=== PATIENT | female | born 1985 | race Caucasian/White ===

== ENCOUNTER 2019-08-07 06:57 | Day surgery (SDC) | payer BC, MEDICAID, SELFPAY ==
[2019-08-06 10:27] VITALS: BMI 53.2
[2019-08-07 07:18] VITALS: BP 159/83; PULSE 102; RESP 18; TEMP 36.4; O2SAT 96
[2019-08-07] MEDS: sodium chloride 0.9% 1,000 ML 30 ML (07:24)
[2019-08-07 07:26] LABS: Glucose Point of Care 165 mg/dL (70-110)
--- NOTE | 2019-08-07 07:53 | PM.HPUD ---
H&P update H&P Update: DATE OF SURGERY/PROCEDURE: 08/07/19 DATE H&P PERFORMED: 07/25/19 H&P UPDATE INFORMATION: H&P completed within last 30 days and No changes to prior documentation PREOP DIAGNOSIS: GERD associated with morbid obesity PRIMARY INDICATION FOR PROCEDURE: The same PLANNED PROCEDURE: Operation Date: 08/07/19 08:30 Proposed Procedures p EGD(Not Applicable) - Bryce Aranda MD Full H&P Perinent History: Medical/Surgical History: Medical History (Updated 07/28/19 @ 08:42 by Bryce Aranda MD) BMI 50.0-59.9, adult (Acute) Depression (Acute) History of drainage of abscess (Acute 2013) 2013 Left axillary region. Excision of sinus tract due to recurrent abscess formation. 2010 Left axillary region. Excision of sinus tract due to recurrent abscess formation. Hypertension (Acute) PCOS (polycystic ovarian syndrome) (Acute) SVT (supraventricular tachycardia) (Acute) Family History: Family History (Updated 07/25/19 @ 13:52 by Paz Fernandez RN) Mother Hypertension Meniere's disease Father Hypertension Hypercholesterolemia Grandfather Cancer Paternal; Lung Grandmother Cancer Maternal; Bone Hypercholesterolemia Maternal Meniere's disease Maternal Family/Other Meniere's disease Maternal Great Grandfather Denies family history of Anesthesia complication Bleeding disorder Social History: Social History Smoking and tobacco status: never smoked Second hand smoke exposure: No Alcohol intake: never Adopted: No Caregiver/support person: Yes Lives independently: Yes Household members: spouse Housing: House Marital status: Highest education level completed: High School Graduate service: No Current occupational status: employed 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
--- NOTE | 2019-08-07 08:26 | ANES.PREANE2 ---
Pre-Anesthetic Assessment Pre-Anesthetic Assessment: Height/Weight: Height 1.57 m Weight 131.995 kg Temp Pulse Resp BP Pulse Ox 97.5 F L 102 H 18 159/83 96 08/07/19 07:18 08/07/19 07:18 08/07/19 07:18 08/07/19 07:18 08/07/19 07:18 Preop Diagnosis: GERD associated with morbid obesity Proposed Procedure: Operation Date: 08/07/19 08:30 Proposed Procedures p EGD(Not Applicable) - Bryce Aranda MD Familial anesthetic complications: PONV Was Beta Carlyle taken within 24 hours: N/A Last intake: Intake Last Liquid Date 08/06/19 Last Liquid Time 21:30 Last Solid Date 08/06/19 Last Solid Time 21:30 Social: Social History: No alcohol and No tobacco Exam: Pre-Anes Outpt Exam: alert, oriented x 3 and clear to auscultation bilaterally Airway: Submandibular: Other (short TMD small mouth opening ) Cervical ROM: WNL MP: 2 Pulmonary: Pulmonary: Asthma (childhood, finished [place] for bronchitis last week) CV/HEM: CV/HEM: Arrythmia (tachycardia) and HTN : : None reported Hepatic: Hepatic: None reported GI: GI: GERD (controlled diet) Metabolic: Metabolic: Morbid obesity Musc/skel: Musc/skel: None reported Neuropsych: Neuropsych: Anxiety and Depression Anesthetic Plan: ASA status: 3 Anesthesia: Anesthesia Evaluation and MAC Risk of > 500 ml blood loss (7ml/kg in children): No PFSH Anesthesia PFSH: Social History Smoking and tobacco status: never smoked Second hand smoke exposure: No Alcohol intake: never Adopted: No Caregiver/support person: Yes Lives independently: Yes Household members: spouse Housing: House Marital status: Highest education level completed: High School Graduate service: No Current occupational status: employed 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
[2019-08-07 08:43] VITALS: PULSE 82; RESP 16; O2SAT 97
[2019-08-07] MEDS: ipratropium 0.5 mg/2.5 mL Neb INHALATION (08:43)
[2019-08-07 08:47] VITALS: PULSE 91
[2019-08-07 09:06] VITALS: BP 127/72; PULSE 85; RESP 16; TEMP 36.5; O2SAT 100
[2019-08-08 13:15] LABS: H. Pylori / CLO Test Positive
== END 2019-08-07 09:30 | disposition home or self-care (01) ==
PROVIDERS: Family Provider Nurse Practitioner; PCP Nurse Practitioner; Visit Provider Surgery
PROC: 0DJ08ZZ Inspection of Upper Intestinal Tract, Via Natural or Artificial Opening Endoscopic (ICD-10-PCS; CPT 43235; principal; 2019-08-07 08:30)
DX: K21.9 Gastro-esophageal reflux disease without esophagitis (principal); K29.70 Gastritis, unspecified, without bleeding; E66.01 Morbid (severe) obesity due to excess calories; Z68.43 Body mass index [BMI] 50.0-59.9, adult; E28.2 Polycystic ovarian syndrome; Z82.49 Family history of ischemic heart disease and other diseases of the circulatory system; Z83.3 Family history of diabetes mellitus; I10 Essential (primary) hypertension
CPT/HCPCS: 12345; 36416; 43239; 82962; 87077; 94640; J2704; J7030; J7611; J7644

== ENCOUNTER → 2019-08-16 10:41 | Outpatient (BNVA) | payer BC, SELFPAY | PROVIDERS: Family Provider Nurse Practitioner; PCP Nurse Practitioner; Visit Provider Nurse Practitioner | DX: F41.1 Generalized anxiety disorder (principal); G47.30 Sleep apnea, unspecified | CPT/HCPCS: 99213 ==

== ENCOUNTER → 2019-09-13 14:20 | Outpatient (BNVA) | payer BC, SELFPAY | PROVIDERS: Family Provider Nurse Practitioner; PCP Nurse Practitioner; Visit Provider Nurse Practitioner | DX: G47.30 Sleep apnea, unspecified (principal); F41.1 Generalized anxiety disorder | CPT/HCPCS: 99214 ==

== ENCOUNTER → 2019-10-15 08:41 | Outpatient (BNVA) | payer MEDICAID, SELFPAY | PROVIDERS: Family Provider Nurse Practitioner; PCP Nurse Practitioner; Visit Provider Counselor Professional | DX: F41.1 Generalized anxiety disorder (principal) | CPT/HCPCS: 90834 ==

== ENCOUNTER → 2019-10-23 08:32 | Outpatient (BNVA) | payer MEDICAID, SELFPAY | PROVIDERS: Family Provider Nurse Practitioner; PCP Nurse Practitioner; Visit Provider Counselor Professional | DX: F41.1 Generalized anxiety disorder (principal) | CPT/HCPCS: 90834 ==

== ENCOUNTER → 2019-11-01 07:47 | Outpatient (BNVA) | payer MEDICAID, SELFPAY | PROVIDERS: Family Provider Nurse Practitioner; PCP Nurse Practitioner; Visit Provider Counselor Professional | DX: F41.1 Generalized anxiety disorder (principal) | CPT/HCPCS: 90834 ==

== ENCOUNTER → 2019-11-12 08:47 | Outpatient (BNVA) | payer MEDICAID, SELFPAY | PROVIDERS: Family Provider Nurse Practitioner; Visit Provider Counselor Professional | DX: F41.1 Generalized anxiety disorder (principal) | CPT/HCPCS: 90834 ==

== ENCOUNTER → 2019-11-13 07:43 | Outpatient (BNVA) | payer MEDICAID, SELFPAY | PROVIDERS: Family Provider Nurse Practitioner; Visit Provider Nurse Practitioner | DX: F41.1 Generalized anxiety disorder (principal) | CPT/HCPCS: 99213 ==

== ENCOUNTER → 2019-11-19 15:30 | Outpatient (BNVA) | payer MEDICAID, SELFPAY | PROVIDERS: Family Provider Nurse Practitioner; Visit Provider Nurse Practitioner | DX: R06.02 Shortness of breath (principal) | CPT/HCPCS: 71046; 87400; 87635 ==

== ENCOUNTER → 2019-11-20 08:18 | Outpatient (BNVA) | payer MEDICAID, SELFPAY | PROVIDERS: Family Provider Nurse Practitioner; Visit Provider Counselor Professional | DX: F41.1 Generalized anxiety disorder (principal); R07.1 Chest pain on breathing; R68.89 Other general symptoms and signs; R50.9 Fever, unspecified; R06.02 Shortness of breath | CPT/HCPCS: 90834; 71046 ==

== ENCOUNTER → 2019-12-04 08:28 | Outpatient (BNVA) | payer MEDICAID, SELFPAY | PROVIDERS: Family Provider Nurse Practitioner; Visit Provider Counselor Professional | DX: F41.1 Generalized anxiety disorder (principal) | CPT/HCPCS: 90834 ==

== ENCOUNTER → 2019-12-12 08:18 | Outpatient (BNVA) | payer MEDICAID, SELFPAY | PROVIDERS: Family Provider Nurse Practitioner; Visit Provider Counselor Professional | DX: F41.1 Generalized anxiety disorder (principal) | CPT/HCPCS: 90834 ==

== ENCOUNTER → 2019-12-19 08:24 | Outpatient (BNVA) | payer MEDICAID, SELFPAY | PROVIDERS: Family Provider Nurse Practitioner; Visit Provider Counselor Professional | DX: F41.1 Generalized anxiety disorder (principal) | CPT/HCPCS: 90832 ==

== ENCOUNTER → 2019-12-26 08:37 | Outpatient (BNVA) | payer MEDICAID, SELFPAY | PROVIDERS: Family Provider Nurse Practitioner; Visit Provider Counselor Professional | DX: F41.1 Generalized anxiety disorder (principal) | CPT/HCPCS: 90834 ==

== ENCOUNTER → 2020-01-09 08:17 | Outpatient (BNVA) | payer MEDICAID, SELFPAY | PROVIDERS: Family Provider Nurse Practitioner; Visit Provider Counselor Professional | DX: F41.1 Generalized anxiety disorder (principal) | CPT/HCPCS: 90834 ==

== ENCOUNTER → 2020-01-23 08:17 | Outpatient (BNVA) | payer MEDICAID, SELFPAY | PROVIDERS: Family Provider Nurse Practitioner; Visit Provider Counselor Professional | DX: F41.1 Generalized anxiety disorder (principal) | CPT/HCPCS: 90834 ==

== ENCOUNTER → 2020-01-31 11:00 | Outpatient (BNVA) | payer MEDICAID, SELFPAY | PROVIDERS: Family Provider Nurse Practitioner; Visit Provider Nurse Practitioner Family | DX: J98.8 Other specified respiratory disorders (principal); R43.2 Parageusia | CPT/HCPCS: 87635 ==

== ENCOUNTER → 2020-02-06 09:00 | Outpatient (BNVA) | payer MEDICAID, SELFPAY | PROVIDERS: Family Provider Nurse Practitioner; Visit Provider Counselor Professional | DX: F41.1 Generalized anxiety disorder (principal) | CPT/HCPCS: 90834 ==

== ENCOUNTER → 2020-02-18 11:33 | Outpatient (BNVA) | payer MEDICAID, SELFPAY | PROVIDERS: Family Provider Nurse Practitioner; Visit Provider Nurse Practitioner | DX: R30.0 Dysuria (principal); I10 Essential (primary) hypertension | CPT/HCPCS: 81000 ==

== ENCOUNTER → 2020-02-20 16:02 | Outpatient (BNVA) | payer MEDICAID, SELFPAY | PROVIDERS: Family Provider Nurse Practitioner; PCP Nurse Practitioner; Visit Provider Nurse Practitioner Family | DX: I10 Essential (primary) hypertension (principal); R07.9 Chest pain, unspecified | CPT/HCPCS: 80048 ==

== ENCOUNTER → 2020-03-03 10:45 | Outpatient (BNVA) | payer MEDICAID, SELFPAY | PROVIDERS: Family Provider Nurse Practitioner; PCP Nurse Practitioner; Visit Provider Counselor Professional | DX: F41.1 Generalized anxiety disorder (principal) | CPT/HCPCS: 90834; 83036 ==

== ENCOUNTER → 2020-03-13 07:57 | Outpatient (BNVA) | payer MEDICAID, SELFPAY | PROVIDERS: Family Provider Nurse Practitioner; PCP Nurse Practitioner; Visit Provider Counselor Professional | DX: F41.1 Generalized anxiety disorder (principal) | CPT/HCPCS: 90834 ==

== ENCOUNTER 2020-03-20 06:58 | Outpatient (CLI) | payer MEDICAID, SELFPAY ==
--- NOTE | 2020-03-20 07:15 | US_ITS ---
WS: [id number] Abdomen ultrasound, 03/20/2020 Clinical Data: resistant hypertension, possible renal artery stenosis Comparison: Abdomen ultrasound, 01/28/2017. Findings: The pancreas shows no cyst, pseudocyst or evidence of pancreatitis. The liver shows fatty infiltration with enlargement, measuring 17.63 cm. The gallbladder is absent.. The common bile duct is 0.4 cm and no intraductal abnormalities are noted . The right kidney is 12.4 cm. No cysts, masses or hydronephrosis is seen. The left kidney is 12.5 cm. No cysts, masses or hydronephrosis is seen. The abdominal aorta is not dilated and the inferior vena cava has normal flow. No vascular abnormalit ies are seen. The spleen measures 15.0 cm and there are no intrasplenic masses or capsular abnormalities. US/US abdomen complete* [id number] Impression: 1. Absent gallbladder. 2. Hepatomegaly with fatty infiltration. 3. Splenomegaly.
== END 2020-03-20 06:59 | disposition home or self-care (01) ==
LOC: US 07:00
PROVIDERS: PCP Nurse Practitioner; Visit Provider Nurse Practitioner Family
DX: I10 Essential (primary) hypertension (principal); Z90.49 Acquired absence of other specified parts of digestive tract; R16.0 Hepatomegaly, not elsewhere classified; K76.0 Fatty (change of) liver, not elsewhere classified; R16.1 Splenomegaly, not elsewhere classified
CPT/HCPCS: 76700

== ENCOUNTER → 2020-03-25 08:20 | Outpatient (BNVA) | payer MEDICAID, SELFPAY | PROVIDERS: Family Provider Nurse Practitioner; PCP Nurse Practitioner; Visit Provider Counselor Professional | DX: F41.1 Generalized anxiety disorder (principal) | CPT/HCPCS: 90834 ==

== ENCOUNTER → 2020-03-26 11:26 | Outpatient (BNVA) | payer MEDICAID, SELFPAY | PROVIDERS: Family Provider Nurse Practitioner; PCP Nurse Practitioner; Visit Provider Nurse Practitioner Family | DX: Z11.59 Encounter for screening for other viral diseases (principal); J06.9 Acute upper respiratory infection, unspecified; Z20.828 Contact with and (suspected) exposure to other viral communicable diseases | CPT/HCPCS: 87635 ==

== ENCOUNTER → 2020-04-08 08:59 | Outpatient (BNVA) | payer MEDICAID, SELFPAY | PROVIDERS: Family Provider Nurse Practitioner; PCP Nurse Practitioner; Visit Provider Counselor Professional | DX: F41.1 Generalized anxiety disorder (principal) | CPT/HCPCS: 90834; 80053; 80061; 81000 ==

== ENCOUNTER → 2020-05-06 08:32 | Outpatient (BNVA) | payer MEDICAID, SELFPAY | PROVIDERS: Family Provider Nurse Practitioner; Visit Provider Counselor Professional | DX: F41.1 Generalized anxiety disorder (principal) | CPT/HCPCS: 90834 ==

== ENCOUNTER 2020-05-22 03:19 | Emergency (ER) | payer MEDICAID, SELFPAY ==
[2020-05-22 03:22] VITALS: BP 134/75; PULSE 118; RESP 17; TEMP 36.7; O2SAT 96; BMI 53.0
--- NOTE | 2020-05-22 03:34 | ED_ITS ---
HPI - Allergic Reaction General: Chief complaint: Allergic Reaction Stated complaint: Allergic reaction Time Seen by Provider: 05/22/20 03:20 Source: patient Mode of arrival: ambulatory Limitations: no limitations History of Present Illness: HPI narrative: 34-year-old female states she had a rash this morning on her stomach. She states that is since spread to her legs and arms. States it seems to move has hive-like. She states it is very pruritic. She denies any shortness of breath or swelling of her tongue. She denies any worsening or improving factors. Associated symptoms: Deny abdominal pain, nausea or vomiting Review of Systems Const: Denies: fever(s), chills, body aches or change in appetite Eyes: Denies: blurry vision or eye discomfort ENMT: Denies: throat pain or dental pain Card: Denies: chest pain Resp: Denies: dyspnea GI: Denies: abdominal pain, nausea, vomiting or diarrhea : Denies: dysuria Musc: Denies: neck pain or back pain Skin/Breast: Reports: rash Neuro: Denies: headache(s) Psych: Denies: depression Jeffrey/Lymph: Denies: easy bruising All/Imm: Denies: urticaria PFSH ED PFSH: Medical History (Updated 05/22/20 @ 04:01 by Laura Tavares MD) BMI 50.0-59.9, adult Chronic migraine with aura Depression Generalized anxiety disorder PCOS (polycystic ovarian syndrome) Sleep apnea, unspecified SVT (supraventricular tachycardia) Surgical History History of appendectomy (07/04/18) History of bladder surgery (1996) 1996 and 1994; Possibly just urethral History of cholecystectomy (01/29/17) History of drainage of abscess (2013) 2013 Left axillary region. Excision of sinus tract due to recurrent abscess formation. 2010 Left axillary region. Excision of sinus tract due to recurrent abscess formation. History of hysterectomy (~2017) Attributes: Left. Comments: ovary gone History of tonsillectomy and adenoidectomy (1993) Status post placement of implantable loop recorder Family History Mother Hypertension Meniere's disease Father Hypertension Hypercholesterolemia Grandfather Cancer Paternal; Lung Grandmother Cancer Maternal; Bone Hypercholesterolemia Maternal Meniere's disease Maternal Family/Other Meniere's disease Maternal Great Grandfather Denies family history of Anesthesia complication Bleeding disorder Social History Smoking and tobacco status: never smoked Second hand smoke exposure: No Alcohol intake: never Adopted: No Caregiver/support person: Yes Lives independently: Yes Household members: spouse Housing: House Marital status: Highest education level completed: High School Graduate service: No Current occupational status: employed 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 Current occupational exposures/hazards: No Pets and animals: No History of recent travel: No Sexually active: Yes Current gender identity: Female Sunni/Congregational: Sikh Special sunni needs: No Agree to transfusion: No Financial difficulty paying for basics: Decline to Answer Physical Exam Const: COMMON NORMALS: no acute distress, patient oriented x3 and healthy appearing HENMT: COMMON NORMALS: normocephalic and atraumatic HEAD & SCALP: normocephalic and atraumatic Eye: COMMON NORMALS: Equal, round and reactive pupils present and EOMs intact bilaterally PUPIL: Yes Equal, round and reactive pupils present Neck/C-Spine: COMMON NORMALS: full ROM and supple Chest: COMMONS NORMALS: normal inspection of the chest and normal palpation of entire chest wall Resp: COMMON NORMALS: normal respiratory effort, No retractions, No use of accessory muscles and clear to auscultation bilaterally AUSCULTATION: clear to auscultation bilaterally Cardio: COMMON NORMALS: regular rate, regular rhythm and No murmurs present (Cardio) RATE: regular rate RHYTHM: regular rhythm GI: COMMON NORMALS: Normal to inspection, nondistended, normoactive bowel sounds present, Soft to palpation, non-tender and no masses PALPATION: Yes Soft to palpation Extremity: COMMON NORMALS: normal to inspection and full ROM Neuro: COMMON NORMALS: patient oriented x3, moves all extremities and no focal motor deficits Psych: COMMON NORMALS: mental status grossly normal, Normal thought process present and cooperative THOUGHT PROCESS: Normal thought process present Skin: COMMON NORMALS: no wounds NARRATIVE SKIN EXAM: hives to trunk, legs and arms Course Vital Signs: Vital signs: Vital Signs Temperature 98.1 F 05/22/20 03:22 Pulse Rate 118 H 05/22/20 03:22 Respiratory Rate 16 05/22/20 03:50 Blood Pressure 126/85 05/22/20 03:50 Pulse Oximetry 97 05/22/20 03:50 MDM - Allergic Reaction MDM Narrative: Medical decision making narrative: Corrine presents here with urticaria likely allergic reaction. Patient is stable for discharge and will prescribe Medrol Dosepak. Patient has no signs of anaphylaxis. Patient is to return if worsening. Discharge Plan Discharge Patient Disposition: Home Clinical Impression: Urticaria Condition: Stable Prescriptions: New Medrol (Buddy) 4 mg tablets,dose pack See Rx Instructions .ROUTE .COMPLEX Qty: 21 RF: 0 No Action albuterol sulfate 2.5 mg /3 mL (0.083 %) solution for nebulization 2.5 mg INHALATION QID RF: 0 multivitamin [Multiple Vitamins] Tablet 1 tab PO DAILY RF: 0 ascorbic acid (vitamin C) 1,000 mg tablet 1,000 mg PO DAILY RF: 0 cholecalciferol (vitamin D3) 2,000 unit tablet 2,000 unit PO DAILY RF: 0 metaxalone 400 mg tablet 400 mg PO BID PRN (Reason: Migraine Headache) RF: 0 ferrous sulfate 325 mg (65 mg iron) tablet,delayed release (DR/EC) 325 mg PO BID RF: 0 Corlanor 7.5 mg tablet 7.5 mg PO BID RF: 0 promethazine 25 mg tablet 25 mg PO Q8H PRN (Reason: Nausea) Qty: 30 RF: 2 diphenhydramine HCl [Benadryl] 25 mg capsule 50 mg PO ONCE Qty: 2 RF: 0 promethazine-DM 6.25-15 mg/5 mL syrup 5 - 10 ml PO Q6H PRN (Reason: cough) 7 Days Qty: 473 RF: 0 metformin 500 mg tablet extended release 24 hr 500 mg PO BID Qty: 60 RF: 2 Byetta 10 mcg/dose(250 mcg/mL) 2.4 mL pen injector 10 mcg SUBCUT BID Qty: 2.4 RF: 2 clonidine HCl 0.1 mg tablet 0.1 mg PO BID PRN (Reason: hypertensive emergency) Qty: 60 RF: 2 doxepin 10 mg capsule 10 mg PO .at bedtime Qty: 30 RF: 2 (DME) FreeStyle Sherry 14 Day Sensor Kit See Rx Instructions .ROUTE .MEDSUPPLY Qty: 1 RF: 5 (DME) FreeStyle Sherry 14 Day Nancy Misc See Rx Instructions .ROUTE .MEDSUPPLY Qty: 1 RF: 0 fluconazole [Diflucan] 150 mg tablet 150 mg PO DAILY Qty: 1 RF: 0 (DME) pen needle, diabetic 33 gauge x 5/32 needle See Rx Instructions .ROUTE .MEDSUPPLY Qty: 100 RF: 0 valsartan-hydrochlorothiazide 160-25 mg tablet 1 tab PO DAILY Qty: 180 RF: 0 clonazepam 1 mg tablet 1 mg PO BID PRN (Reason: anxiety) Qty: 60 RF: 1 venlafaxine [Effexor XR] 150 mg capsule,extended release 24hr 150 mg PO BEDTIME Qty: 30 RF: 2 venlafaxine [Effexor XR] 75 mg capsule,extended release 24hr 75 mg PO BEDTIME Qty: 30 RF: 2 Lactobacillus acidophilus Capsule 10 mg PO DAILY RF: 0 Protonix 40 mg tablet,delayed release (DR/EC) 40 mg PO DAILY Qty: 30 RF: 2 Discharge Orders: Discharge Order (Routine); Ordered 05/22/20 Ordered By: Laura Tavares Discharge Diet: Advance as tolerated Discharge Activity: Resume usual activity Patient Instructions: Urticaria (ED) Coding Level of Care Code ED Senior Research Project Manager for Nicolas Fwd Exam Comprehensive
[2020-05-22 03:50] VITALS: BP 126/85; RESP 16; O2SAT 97
[2020-05-22] MEDS: diphenhydrAMINE 50 mg/mL SDV 1mL IVP (03:58)
[2020-05-22] MEDS: EPINEPHrine 1 mg/mL INJ 0.3 MG IM (04:33)
[2020-05-22] MEDS: LORazepam 2 mg/mL INJ 1 mL 1 MG IVP (05:18)
[2020-05-22 05:28] VITALS: BP 121/65; PULSE 91; RESP 17; TEMP 36.6; O2SAT 97
== END 2020-05-22 05:28 | disposition home or self-care (01) ==
PROVIDERS: Emergency Provider Emergency Medicine; PCP Family Medicine
DX: L50.9 Urticaria, unspecified (principal)
CPT/HCPCS: 12345; 96372; 96374; 96375; 99283; J0171; J1200; J2060; J2930

== ENCOUNTER → 2020-05-27 08:38 | Outpatient (BNVA) | payer MEDICAID, SELFPAY | PROVIDERS: Family Provider Nurse Practitioner; Visit Provider Counselor Professional | DX: F41.1 Generalized anxiety disorder (principal) | CPT/HCPCS: 90834 ==

== ENCOUNTER → 2020-06-16 08:09 | Outpatient (BNVA) | payer MEDICAID, SELFPAY | PROVIDERS: Family Provider Nurse Practitioner; Visit Provider Counselor Professional | DX: F41.1 Generalized anxiety disorder (principal) | CPT/HCPCS: 90834 ==

== ENCOUNTER → 2020-07-08 09:28 | Outpatient (BNVA) | payer MEDICAID, SELFPAY | PROVIDERS: Family Provider Nurse Practitioner; Visit Provider Counselor Professional | DX: F41.1 Generalized anxiety disorder (principal) | CPT/HCPCS: 90834 ==

== ENCOUNTER → 2020-07-13 09:18 | Outpatient (BNVA) | payer MEDICAID, SELFPAY | PROVIDERS: Family Provider Nurse Practitioner; Visit Provider Nurse Practitioner | DX: F41.1 Generalized anxiety disorder (principal) | CPT/HCPCS: 99214 ==

== ENCOUNTER → 2020-07-30 09:22 | Outpatient (BNVA) | payer MEDICAID, SELFPAY | PROVIDERS: Family Provider Nurse Practitioner; Visit Provider Counselor Professional | DX: F41.1 Generalized anxiety disorder (principal) | CPT/HCPCS: 90834 ==

== ENCOUNTER → 2020-08-11 07:54 | Outpatient (BNVA) | payer MEDICAID, SELFPAY | PROVIDERS: Family Provider Nurse Practitioner; PCP Nurse Practitioner; Visit Provider Nurse Practitioner | DX: F41.1 Generalized anxiety disorder (principal); F41.0 Panic disorder [episodic paroxysmal anxiety] | CPT/HCPCS: 99214 ==

== ENCOUNTER → 2020-08-15 10:45 | Outpatient (BNVA) | payer MEDICAID, SELFPAY | PROVIDERS: Family Provider Nurse Practitioner; PCP Nurse Practitioner; Visit Provider Nurse Practitioner Family | DX: Z20.822 Contact with and (suspected) exposure to COVID-19 (principal) | CPT/HCPCS: 87635 ==

== ENCOUNTER 2020-08-18 13:55 | Emergency (ER) | payer MEDICAID, SELFPAY ==
[2020-08-18 14:06] VITALS: BP 139/85; PULSE 110; RESP 34; TEMP 36.4; O2SAT 97; BMI 49.5
[2020-08-18 14:24] VITALS: BP 139/85; PULSE 98; RESP 24; TEMP 36.4; O2SAT 97
--- NOTE | 2020-08-18 14:30 | ECG_ITS ---
[facility] Test Date: 2020-08-18 Pat Name: Alma Abdullahi Department: Room: Gender: Female Shuttle Hand: : 1985 Requested By: Terri Lopez Order Number: [id number] Abril MD: Juanpablo Melgar M.D. Measurements Intervals Potter Rate: 97 P: 34 NC: 144 QRS: 5 QRSD: 119 T: 34 QT: 359 QTc: 457 Interpretive Statements SINUS RHYTHM INCOMPLETE RIGHT BUNDLE BRANCH BLOCK [90+ ms QRS DURATION, TERMINAL R IN V1/V2, 40+ ms S IN I/aVL/V4/V5/V6] POSSIBLE ANTERIOR MYOCARDIAL INFARCTION , OF INDETERMINATE AGE [30 ms Q WAVE IN V3/V4, OR R < 0.2 mV IN V4] Compared to ECG 11/05/2018 20:48:11 No significant changes Electronically Signed On 08-18-2020 17:31:39 FOLDER MACHINE by Juanpablo Melgar M.D. [id number]
--- NOTE | 2020-08-18 14:30 | XR_ITS ---
WS: [id number] Exam: XR chest 1V portable [id number] Date/Time of Exam: 08/18/2020 2:30 PM Reason For Exam: SOB/COVID Comparison 11/19/2019. The lungs are clear. Normal cardiomediastinal structures and bony elements. No pleural effusions. The re may be a cardiac recording device superimposing the left heart. XR/XR chest 1V portable [id number] IMPRESSION: 1. No acute cardiopulmonary finding. No change.
--- NOTE | 2020-08-18 14:32 | ED_ITS ---
HPI - COVID General: Chief Complaint: COVID symptoms Stated Complaint: COVID+/LOW02/IN COVID WR Time Seen by Provider: 08/18/20 14:11 Source: patient Mode of arrival: ambulatory Limitations: no limitations Triage information: Has fever, cough or shortness of breath . Exposure to COVID + person last 14 days History of Present Illness: HPI Narrative: Patient is a 34-year-old female here for evaluation of COVID symptoms. Patient tells me she tested positive for COVID on 08/15. She states her symptoms began on 08/14 with loss of smell/taste. She states since that time she has developed fatigue, nonproductive cough, and shortness of breath. She tells me she has been measuring her O2 levels at home and states with any form of ambulation they will drop into the 80s. Patient's PMH is significant for obesity, HTN, and DM. MD complaint: known COVID positive Prior covid testing: yes, results known Prior testing date: 08/15/20 COVID 19 common symptoms: positive non-productive cough, dyspnea and fatigue; negative fever(s), body aches, headache(s), throat pain, nasal congestion, nausea, vomiting or diarrhea COVID 19 other sytmptoms: negative chest pain Pertinent comorbid conditions: diabetes, hypertension and obesity Treatment prior to arrival: none COVID Results: SARS-CoV-2 RNA (RT-PCR) Detected (NOT DETECTED) A 08/15/20 10:45 08/15/20 Review of Systems Const: Reports: fatigue and other (loss of taste/smell); Denies: fever(s), chills, body aches, change in appetite, change in weight or m alaise Eyes: Denies: change in vision, blurry vision or photophobia ENMT: Denies: throat pain, odynophagia or nasal congestion Card: Reports: dyspnea on exertion; Denies: chest pain, palpitations, irregular heart rhythm, edema, swelling of feet/ankles, lightheadedness, syncope, pre-syncope, orthopnea, leg pain with exertion or acrocyanosis Resp: Reports: dyspnea, non-productive cough and pain on inspiration; Denies: wheezing, change in phlegm color, hemoptysis or chest congestion GI: Denies: abdominal pain, nausea, vomiting or diarrhea Musc: Denies: neck pain or back pain Skin/Breast: Denies: rash Neuro: Denies: headache(s), numbness in extremities, weakness in extremities or sensory changes PFSH ED PFSH: Medical History (Updated 08/18/20 @ 16:09 by RADHA Beck) BMI 50.0-59.9, adult Chronic migraine with aura Depression Generalized anxiety disorder Panic disorder PCOS (polycystic ovarian syndrome) Sleep apnea, unspecified SVT (supraventricular tachycardia) Surgical History History of appendectomy (07/04/18) History of bladder surgery (1996) 1996 and 1994; Possibly just urethral History of cholecystectomy (01/29/17) History of drainage of abscess (2013) 2013 Left axillary region. Excision of sinus tract due to recurrent abscess formation. 2010 Left axillary region. Excision of sinus tract due to recurrent abscess formation. History of hysterectomy (~2017) Attributes: Left. Comments: ovary gone History of tonsillectomy and adenoidectomy (1993) Status post placement of implantable loop recorder Family History Mother Hypertension Meniere's disease Father Hypertension Hypercholesterolemia Grandfather Cancer Paternal; Lung Grandmother Cancer Maternal; Bone Hypercholesterolemia Maternal Meniere's disease Maternal Family/Other Meniere's disease Maternal Great Grandfather Denies family history of Anesthesia complication Bleeding disorder Social History Smoking and tobacco status: never smoked Second hand smoke exposure: No Alcohol intake: never Adopted: No Caregiver/support person: Yes Lives independently: Yes Household members: spouse Housing: House Marital status: Highest education level completed: High School Graduate service: No Current occupational status: employed 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 Current occupational exposures/hazards: No Pets and animals: No History of recent travel: No Sexually active: Yes Current gender identity: Female Sunni/Yazdanism: Religious Special sunni needs: No Agree to transfusion: No Financial difficulty paying for basics: Decline to Answer Physical Exam Const: COMMON NORMALS: patient oriented x3, no limitations and alert GENERAL APPEARANCE: cooperative and in distress (appears mildly short of breath when speaking) NUTRITIONAL APPEARANCE: obese ORIENTATION/CONSCIOUSNESS: Yes awake, Yes oriented to person, Yes oriented to place and Yes oriented to time HENMT: COMMON NORMALS: normocephalic and atraumatic HEAD & SCALP: normocephalic and atraumatic Resp: COMMON NORMALS: normal respiratory effort and clear to auscultation bilaterally EFFORT & INSPECTION: Yes tachypneic AUSCULTATION: clear to auscultation bilaterally Cardio: COMMON NORMALS: regular rate and regular rhythm RATE: regular rate RHYTHM: regular rhythm Neuro: TAMARA COMA SCALE: document GCS findings Tamara coma scale eye opening: Spontaneous Kevin coma scale verbal response: Orientated Tamara coma scale motor response: Obey commands Tamara coma scale total score: 15 COMMON NORMALS: patient oriented x3 SENSORIUM/ORIENTATION: Yes alert, Yes oriented to person, Yes oriented to place and Yes oriented to time Skin: COMMON NORMALS: no rashes or lesions noted GENERAL SKIN EXAM: no rashes or lesions noted Course Vital Signs: Vital signs: Vital Signs Temperature 97.6 F 08/18/20 14:24 Pulse Rate 98 08/18/20 14:24 Respiratory Rate 24 H 08/18/20 14:24 Blood Pressure 139/85 08/18/20 14:24 Pulse Oximetry 98 08/18/20 15:45 MDM - COVID MDM Narrative: Medical decision making narrative: Patient is a 34-year-old here for evaluation of COVID symptoms. Patient was initially tachycardic and tachypneic upon arrival but this resolved during her stay with rest. Patient tells me she was having low O2 sats at home however respiratory came and performed a home O2 eval and patient sats never dropped lower than 96%. Her CXR is normal. She has a normal white count, normal D-dimer, normal troponin, BNP, and procalcitonin. Her lactate was slightly elevated at 3.3. CRP is elevated at 29.6. EKG shows no ischemic changes. At this time she does not warrant inpatient admission. She does not need home O2 based on her evaluation here. Patient does meet criteria for a BAM infusion based on her BMI and diabetes history. We discussed possibly doing dexamethasone however given her history of hypertension and diabetes (normal blood sugar for patient is 300s) I think we will hold off on this. Strict return to ED precautions given. Lab Data: Labs: Lab Results 08/18/20 08/18/20 08/18/20 Range/Units 14:00 14:00 14:00 WBC 7.0 (4.0-10.0) 10^3/ uL RBC 5.58 H (4.1-5.3) 10^6/u L Hgb 14.8 (11.5-15.3) g/dL Hct 45.2 (37.0-47.0) % MCV 81.0 (81-99) fL MCH 26.5 L (28.0-34.0) pg MCHC 32.7 (30.0-36.0) g/dL RDW 13.1 (12.1-15.1) % Plt Count 228 (130-400) 10^3/c mm MPV 9.2 (7.4-10.4) fL Neut % (Auto) 84.0 % Lymph % (Auto) 13.4 % Carson % (Auto) 1.3 % Eos % (Auto) 0.1 % Baso % (Auto) 0.3 % Neut # (Auto) 5.88 (1.8-7.7) 10^3/u L Lymph # (Auto) 0.9 (0.8-4.8) 10^3/u L Carson # (Auto) 0.1 L (0.2-0.9) 10^3/u L Eos # (Auto) 0.0 (0.0-0.8) 10^3/u L Baso # (Auto) 0.0 (0.0-0.1) 10^3/u L Nucleated RBC % (a uto) 0 % Nucleated RBCs # 0.0 /100WBC D-Dimer <= 0.27 (0-0.59) ug/mIFE U Sodium 136 (136-145) mmol/L Potassium 4.0 (3.5-5.1) mmol/L Chloride 98 (98-107) mmol/L Carbon Dioxide 20 L (22-29) mmol/L Anion Gap 22.0 H (5-19) BUN 10 (6-20) mg/dL Creatinine 0.5 (0.5-0.9) mg/dL GFR Calculation 143.0 H (90-130) mL/min Glucose 278 H (65-115) mg/dL Calculated Osmolal ity 291 (285-295) mOsm/k g Lactic Acid (0.5-2.2) mmol/L Calcium 9.3 (8.5-10.5) mg/dL Total Bilirubin 0.2 (0.15-1.2) mg/dL AST 27 (0-32) U/L ALT 27 (0-33) U/L Alkaline Phosphata se 172 H (35-105) IU/L Troponin T Gen 5 n g/L (0-10) ng/L C-Reactive Protein 29.6 H (0.0-4.9) mg/L NT-Pro-B Natriuret Pep 58 (0-125) pg/mL Total Protein 7.6 (6.6-8.7) g/dL Albumin 4.0 (3.5-5.2) g/dL Globulin 3.6 (1.3-4.6) g/dL Procalcitonin 0.04 (0-0.5) ng/mL 08/18/20 08/18/20 Range/Units 14:00 14:00 WBC (4.0-10.0) 10^3/ uL RBC (4.1-5.3) 10^6/u L Hgb (11.5-15.3) g/dL Hct (37.0-47.0) % MCV (81-99) fL MCH (28.0-34.0) pg MCHC (30.0-36.0) g/dL RDW (12.1-15.1) % Plt Count (130-400) 10^3/c mm MPV (7.4-10.4) fL Neut % (Auto) % Lymph % (Auto) % Carson % (Auto) % Eos % (Auto) % Baso % (Auto) % Neut # (Auto) (1.8-7.7) 10^3/u L Lymph # (Auto) (0.8-4.8) 10^3/u L Carson # (Auto) (0.2-0.9) 10^3/u L Eos # (Auto) (0.0-0.8) 10^3/u L Baso # (Auto) (0.0-0.1) 10^3/u L Nucleated RBC % (a uto) % Nucleated RBCs # /100WBC D-Dimer (0-0.59) ug/mIFE U Sodium (136-145) mmol/L Potassium (3.5-5.1) mmol/L Chloride (98-107) mmol/L Carbon Dioxide (22-29) mmol/L Anion Gap (5-19) BUN (6-20) mg/dL Creatinine (0.5-0.9) mg/dL GFR Calculation (90-130) mL/min Glucose (65-115) mg/dL Calculated Osmolal ity (285-295) mOsm/k g Lactic Acid 3.3 H (0.5-2.2) mmol/L Calcium (8.5-10.5) mg/dL Total Bilirubin (0.15-1.2) mg/dL AST (0-32) U/L ALT (0-33) U/L Alkaline Phosphata se (35-105) IU/L Troponin T Gen 5 n g/L 6 (0-10) ng/L C-Reactive Protein (0.0-4.9) mg/L NT-Pro-B Natriuret Pep (0-125) pg/mL Total Protein (6.6-8.7) g/dL Albumin (3.5-5.2) g/dL Globulin (1.3-4.6) g/dL Procalcitonin (0-0.5) ng/mL Imaging Data: CXR: Radiologist's impression: [address] [address] XRay Report Signed Patient: Alma Abdullahi Unit #: [id number] : 1985 Age/Sex: 34 / F ADM Date: 08/18/20 Loc: ER Room/Bed: Attending Dr: Ordering Provider/Ordering MD: Terri Lopez Date of Service: 08/18/20 Procedure(s): XR chest 1V portable [id number] Accession Number(s): [id number] Report Number: [id number] WS: [id number] Exam: XR chest 1V portable [id number] Date/Time of Exam: 08/18/2020 2:30 PM Reason For Exam: SOB/COVID Comparison 11/19/2019. The lungs are clear. Normal cardiomediastinal structures and bony elements. No pleural effusions. There may be a cardiac recording device superimposing the left heart. XR/XR chest 1V portable [id number] IMPRESSION: 1. No acute cardiopulmonary finding. No change. Dictated By: Adolfo Capellan DO Signed By: Adolfo Capellan DO Signed Date/Time: 08/18/201453 DD/ 1452 COVID Results: SARS-CoV-2 RNA (RT-PCR) Detected (NOT DETECTED) A 08/15/20 10:45 08/15/20 Monoclonal Antibody Treatments Inclusion/Exclusion Criteria weight >/= 40 kg and + direct Sars-Cov-2 test less than 7-10 days ago BMI >/= 35 and has diabetes not requiring hospitalization, not requiring oxygen (if not chronically on oxygen) and no increase oxygen requirement (if chronically on oxygen) Patient education patient/family/caregiver received/reviewed fact sheet, Emergency Use Authorization/unapproved drug status discussed with patient/family/caregiver, alternatives to this treatment discussed with patient/family/caregiver, risks and benefits of medication reviewed with patient/family/caregiver, patient/family/caregiver given opportunity for questions, which were answered and patient consents to receiving Monoclonal Antibody Treatment Plan for treatment Meets criteria for Monoclonal Antibody infusion Ordering Monoclonal Antibody infusion for another day Discharge Plan Discharge Patient Disposition: Home Clinical Impression: COVID-19 Condition: Stable Prescriptions: No Action albuterol sulfate 2.5 mg /3 mL (0.083 %) solution for nebulization 2.5 mg INHALATION QID RF: 0 multivitamin [Multiple Vitamins] Tablet 1 tab PO DAILY RF: 0 ascorbic acid (vitamin C) 1,000 mg tablet 1,000 mg PO DAILY RF: 0 cholecalciferol (vitamin D3) 2,000 unit tablet 2,000 unit PO DAILY RF: 0 ferrous sulfate 325 mg (65 mg iron) tablet,delayed release (DR/EC) 325 mg PO BID RF: 0 Corlanor 7.5 mg tablet 7.5 mg PO BID RF: 0 promethazine 25 mg tablet 25 mg PO Q8H PRN (Reason: Nausea) Qty: 30 RF: 2 diphenhydramine HCl [Benadryl] 25 mg capsule 50 mg PO ONCE Qty: 2 RF: 0 venlafaxine [Effexor XR] 150 mg capsule,extended release 24hr 150 mg PO BEDTIME Qty: 30 RF: 2 venlafaxine [Effexor XR] 75 mg capsule,extended release 24hr 75 mg PO BEDTIME Qty: 30 RF: 2 Emgality Pen 120 mg/mL pen injector SUBCUT .montly RF: 0 diazepam [Valium] 5 mg tablet 5 mg PO BID PRN (Reason: anxiety) Qty: 60 RF: 0 (DME) pen needle, diabetic 33 gauge x 5/32 needle See Rx Instructions .ROUTE .MEDSUPPLY Qty: 100 RF: 0 valsartan-hydrochlorothiazide 160-25 mg tablet 1 tab PO DAILY Qty: 180 RF: 0 metformin 500 mg tablet extended release 24 hr 500 mg PO BID Qty: 60 RF: 2 clonidine HCl 0.1 mg tablet 0.1 mg PO BID PRN (Reason: hypertensive emergency) Qty: 60 RF: 2 Victoza 3-Buddy 0.6 mg/0.1 mL (18 mg/3 mL) pen injector 1.8 mg SUBCUT Q24H Qty: 9 RF: 0 doxepin 10 mg capsule 10 mg PO .at bedtime Qty: 30 RF: 2 Discharge Orders: Discharge ED (Routine); Ordered 08/18/20 Ordered By: Terri Lopez Referrals: Rosalba Maldonado, [employer] ADVISOR-C [Primary Care Provider] - Patient Instructions: Opioid Safety Activity Restrictions/Additional Instructions: [facility] is committed to fighting the nationwide opiate epidemic. We are providing ALL patients with information regarding opiate safety. If you received opiate pain medication during your stay or if you received a prescription for opiate pain medication-please review this handout. If not, you may disregard. Thank you. As discussed case management should contact you tomorrow to set you up with your BAM infusion. You need to return to the emergency department immediately for worsening shortness of breath, chest pain, difficulty breathing, or any other concerns you may have. Coding Level of Care Code ED Heel Lining Paster for Nicolas Moreno Exam Detailed
[2020-08-18 15:17] LABS: Basophils % 0.3 %; Eosinophils % 0.1 %; Hematocrit 45.2 % (37.0-47.0); Hemoglobin 14.8 g/dL (11.5-15.3); Lymphocytes # 0.9 10^3/uL (0.8-4.8); Lymphocytes % 13.4 %; Mean Corpuscular HGB Conc 32.7 g/dL (30.0-36.0); Mean Corpuscular Hemoglobin 26.5 pg (28.0-34.0); Mean Platelet Volume 9.2 fL (7.4-10.4); Monocytes # 0.1 10^3/uL (0.2-0.9); Monocytes % 1.3 %; Neutrophils # 5.88 10^3/uL (1.8-7.7); Nucleated Red Blood Cells % 0 %; Platelet Count 228 10^3/cmm (130-400); Red Blood Count 5.58 10^6/uL (4.1-5.3); Red Cell Distribution Width 13.1 % (12.1-15.1)
[2020-08-18 15:28] LABS: D Dimer <= 0.27 ug/mIFEU (0-0.59)
[2020-08-18 15:30] LABS: Lactic Sepsis W/Reflex 3.3 mmol/L (0.5-2.2)
[2020-08-18 15:33] LABS: Troponin T (5th) Once 6 ng/L (0-10)
[2020-08-18 15:40] LABS: NT Pro B Type Natriuretic Pept 58 pg/mL (0-125); Procalcitonin 0.04 ng/mL (0-0.5)
[2020-08-18 15:45] VITALS: O2SAT 96; O2SAT 98
[2020-08-18 15:52] LABS: Alanine Aminotransferase 27 U/L (0-33); Alkaline Phosphatase 172 IU/L (35-105); Aspartate Amino Transferase 27 U/L (0-32); Blood Urea Nitrogen 10 mg/dL (6-20); C Reactive Protein 29.6 mg/L (0.0-4.9); Calcium 9.3 mg/dL (8.5-10.5); Carbon Dioxide 20 mmol/L (22-29); Chloride 98 mmol/L (98-107); Globulin 3.6 g/dL (1.3-4.6); Glucose 278 mg/dL (65-115); Osmolality Calculated 291 mOsm/kg (285-295); Sodium 136 mmol/L (136-145); Total Bilirubin 0.2 mg/dL (0.15-1.2); Total Protein 7.6 g/dL (6.6-8.7)
[2020-08-18 16:51] LABS: Reflex Lactate Order REFLEX LACTIC ORDERD
[2020-08-18 16:58] VITALS: O2SAT 97
[2020-08-18 16:59] VITALS: BP 139/85; PULSE 122; RESP 16; O2SAT 97
--- NOTE | 2020-08-20 14:01 | DCPLANNER ---
workday manager had message to schedule an outpatient BAM infusion for patient. workday manager called patients insurance to get a prior authorization for the infusion. workday manager spoke with patients insurance company, spoke with Darshana, was told that a prior authorization was not needed for this infusion. Reference number is [id number]. workday manager faxed order to centralized scheduling. workday manager also faxed positive COVID results to centralized scheduling.
== END 2020-08-18 17:00 | disposition home or self-care (01) ==
PROVIDERS: Emergency Provider Physician Assistant; PCP Nurse Practitioner
DX: U07.1 COVID-19 (principal)
CPT/HCPCS: 71045; 80053; 83605; 83880; 84145; 84484; 85025; 85378; 86140; 93005; 94760; 96365; 96366; 96367; 99284; 99291; 99292

== ENCOUNTER 2020-08-21 12:37 | Outpatient (CLI) | payer MEDICAID, SELFPAY ==
[2020-08-21 14:15] VITALS: BP 126/92; PULSE 86; RESP 18; TEMP 36.1; O2SAT 98; BMI 51.0
[2020-08-21 14:45] VITALS: BP 139/92; PULSE 88; RESP 18; O2SAT 97
[2020-08-21 15:47] VITALS: BP 142/89; PULSE 85; RESP 18; TEMP 36.1; O2SAT 97
--- NOTE | 2020-09-02 15:43 | DCPLANNER ---
field insurance sales manager had message that patient had received the BAM infusion, special education case manager called patient to see how patient was doing. field insurance sales manager spoke with patient, she stated that she was doing good. She still has some shortness of breath but overall she is doing good.
== END 2020-08-21 15:45 | disposition home or self-care (01) ==
LOC: OPS 12:37
PROVIDERS: PCP Nurse Practitioner; Referring Provider Nurse Practitioner Family; Visit Provider Physician Assistant
DX: U07.1 COVID-19 (principal)
CPT/HCPCS: 96365

== ENCOUNTER → 2020-08-25 08:07 | Outpatient (BNVA) | payer MEDICAID, SELFPAY | PROVIDERS: Family Provider Nurse Practitioner; Visit Provider Counselor Professional | DX: F41.1 Generalized anxiety disorder (principal) | CPT/HCPCS: 90834 ==

== ENCOUNTER → 2020-09-08 08:11 | Outpatient (BNVA) | payer MEDICAID, SELFPAY | PROVIDERS: Family Provider Nurse Practitioner; Visit Provider Counselor Professional | DX: F41.1 Generalized anxiety disorder (principal) | CPT/HCPCS: 90834 ==

== ENCOUNTER → 2020-09-21 08:16 | Outpatient (BNVA) | payer MEDICAID, SELFPAY | PROVIDERS: Family Provider Nurse Practitioner; Visit Provider Counselor Professional | DX: F41.0 Panic disorder [episodic paroxysmal anxiety] (principal); F41.1 Generalized anxiety disorder | CPT/HCPCS: 90832 ==

== ENCOUNTER → 2020-10-07 12:53 | Outpatient (BNVA) | payer MEDICAID, SELFPAY | PROVIDERS: Family Provider Nurse Practitioner; Visit Provider Nurse Practitioner | DX: F41.1 Generalized anxiety disorder (principal); F41.0 Panic disorder [episodic paroxysmal anxiety] | CPT/HCPCS: 99214 ==

== ENCOUNTER → 2020-11-04 12:51 | Outpatient (BNVA) | payer MEDICAID, SELFPAY | PROVIDERS: Family Provider Nurse Practitioner; Visit Provider Nurse Practitioner | DX: F41.1 Generalized anxiety disorder (principal); F41.0 Panic disorder [episodic paroxysmal anxiety] | CPT/HCPCS: 99214 ==

== ENCOUNTER → 2020-11-05 07:33 | Outpatient (BNVA) | payer MEDICAID, SELFPAY | PROVIDERS: Family Provider Nurse Practitioner; Visit Provider Counselor Professional | DX: F41.1 Generalized anxiety disorder (principal); F41.0 Panic disorder [episodic paroxysmal anxiety] | CPT/HCPCS: 90834; 90832 ==

== ENCOUNTER → 2020-11-12 12:33 | Outpatient (BNVA) | payer MEDICAID, SELFPAY | PROVIDERS: PCP Nurse Practitioner; Visit Provider Surgery | DX: Z20.822 Contact with and (suspected) exposure to COVID-19 (principal) | CPT/HCPCS: 87635 ==

== ENCOUNTER 2020-11-17 12:51 | Inpatient (IN) | payer MEDICAID, SELFPAY ==
[2020-11-12 12:28] LABS: Basophils # 0.1 10^3/uL (0.0-0.1); Basophils % 0.4 %; Eosinophils # 0.1 10^3/uL (0.0-0.8); Eosinophils % 0.7 %; Hematocrit 49.1 % (37.0-47.0); Hemoglobin 16.2 g/dL (11.5-15.3); Lymphocytes # 2.8 10^3/uL (0.8-4.8); Lymphocytes % 20.8 %; Mean Corpuscular Hemoglobin 26.5 pg (28.0-34.0); Mean Corpuscular Volume 80.4 fL (81-99); Mean Platelet Volume 9.1 fL (7.4-10.4); Monocytes # 0.7 10^3/uL (0.2-0.9); Monocytes % 4.9 %; Neutrophils # 9.73 10^3/uL (1.8-7.7); Nucleated Red Blood Cells % 0 %; Platelet Count 371 10^3/cmm (130-400); Red Blood Count 6.11 10^6/uL (4.1-5.3); Red Cell Distribution Width 13.3 % (12.1-15.1); White Blood Count 13.4 10^3/uL (4.0-10.0)
[2020-11-12 12:36] LABS: INR 1.03 (0.8-1.2)
[2020-11-12 13:01] LABS: Alanine Aminotransferase 11 U/L (0-33); Albumin Level 4.5 g/dL (3.5-5.2); Alkaline Phosphatase 177 IU/L (35-105); Anion Gap 20.4 (5-19); Aspartate Amino Transferase 17 U/L (0-32); Blood Urea Nitrogen 15 mg/dL (6-20); Calcium 9.9 mg/dL (8.5-10.5); Carbon Dioxide 28 mmol/L (22-29); Chloride 90 mmol/L (98-107); Chol HDL Ratio 7.14 mg/dL (0.0-4.40); Cholesterol 264 mg/dL (0-200); Ferritin 401 ng/mL (15-150); Globulin 3.8 g/dL (1.3-4.6); Glomerular Filtration Rate 83.1 mL/min (90-130); Glucose 176 mg/dL (65-115); HDL Cholesterol 37 mg/dL (60-100); Iron 73 ug/dL (37-145); LDL Cholesterol Calculated 191 mg/dL (50-129); LDL HDL Ratio 5.16 RATIO (0.00-3.22); Magnesium 1.9 mg/dL (1.7-2.3); Osmolality Calculated 285 mOsm/kg (285-295); Percent Saturation 23.7 % (20-50); Phosphorus 2.7 mg/dL (2.5-4.5); Potassium 3.4 mmol/L (3.5-5.1); Sodium 135 mmol/L (136-145); Thyroid Stimulating Hormone 1.66 uIU/mL (0.27-4.20); Total Bilirubin 0.5 mg/dL (0.15-1.2); Total Iron Binding Capacity 308 mcg/dl; Total Protein 8.3 g/dL (6.6-8.7); Triglycerides 179 mg/dL (0-150); Unsaturated Iron Binding 235 ug/dL (112-347)
[2020-11-12 13:04] LABS: Calcium 9.7 mg/dL (8.5-10.5)
[2020-11-12 13:10] LABS: Parathyroid Hormone 52.2 pg/mL (15-65)
[2020-11-12 13:18] LABS: Folate Level 19.7 ng/mL (4.8-37.3)
[2020-11-12 13:44] LABS: Vitamin B12 > 2000 pg/mL (232-1245)
[2020-11-16 13:16] VITALS: BMI 46.7
[2020-11-17] VITALS (29 sets, daily range): BP systolic 102–172; BP diastolic 52–84; PULSE 62–108; RESP 16–18; TEMP 36.1–37.3; O2SAT 92–98
[2020-11-17 07:50] LABS: Glucose Point of Care 200 mg/dL (70-110)
[2020-11-17] MEDS: sodium chloride 0.9% 1,000 ML 999 ML IV (07:50)
[2020-11-17] MEDS: pantoprazole 40 mg SDV IVP (07:52)
[2020-11-17] MEDS: scopolamine 1.5 Patch 1 PATCH TRANSDERMA (07:55)
[2020-11-17] MEDS: heparin 5,000 unit/mL INJ 1 mL 5000 UNIT SUBCUT ×2 (07:57→22:59)
[2020-11-17] MEDS: sodium chloride 0.9% 1,000 ML 30 ML IV (08:30)
--- NOTE | 2020-11-17 08:44 | ANES.PREANE2 ---
Pre-Anesthetic Assessment Pre-Anesthetic Assessment: Height/Weight: Height 1.57 m Weight 116.12 kg Temp Pulse Resp Pulse Ox 97.1 F L 73 18 98 11/17/20 07:28 11/17/20 07:28 11/17/20 07:28 11/17/20 07:28 Preop Diagnosis: GERD associated with morbid obesity Proposed Procedure: Operation Date: 11/17/20 09:30 Proposed Procedures p Laparoscopic Gastric Sleeve w/ EGD 47087 47260 e66.01(Not Applicable) - Bryce Aranda MD s EGD(Not Applicable) - Bryce Aranda MD Familial anesthetic complications: PONV, hard to wake up Was Beta Carlyle taken within 24 hours: Yes Was Clonidine taken within 24 hours: Yes Last intake: Intake > 8 hrs Last Liquid Date 11/17/20 Last Liquid Time 06:00 Last Solid Date 10/26/20 Last Solid Time 18:00 Social: Social History: No alcohol and No tobacco Exam: Pre-Anes Outpt Exam: alert, oriented x 3, clear to auscultation bilaterally and regular rate & rhythm Airway: MP: 3 Dentition: Full Pulmonary: Pulmonary: [facility]ETT Comments: COVID 19 in july CV/HEM: CV/HEM: Angina (Stable), Arrythmia (SVT/tachycardia) and HTN Metabolic: Metabolic: DM and Morbid obesity Anesthetic Plan: ASA status: 3 Anesthesia: General Risk of > 500 ml blood loss (7ml/kg in children): No PFSH Anesthesia PFSH: Medical History BMI 50.0-59.9, adult Chronic migraine with aura Depression Generalized anxiety disorder Panic disorder PCOS (polycystic ovarian syndrome) Sleep apnea, unspecified SVT (supraventricular tachycardia) Surgical History History of appendectomy (07/04/18) History of bladder surgery (1996) 1996 and 1994; Possibly just urethral History of cholecystectomy (01/29/17) History of drainage of abscess (2013) 2013 Left axillary region. Excision of sinus tract due to recurrent abscess formation. 2010 Left axillary region. Excision of sinus tract due to recurrent abscess formation. History of hysterectomy (~2017) Attributes: Left. Comments: ovary gone History of tonsillectomy and adenoidectomy (1993) Status post placement of implantable loop recorder Family History Mother Hypertension Meniere's disease Father Hypertension Hypercholesterolemia Grandfather Cancer Paternal; Lung Grandmother Cancer Maternal; Bone Hypercholesterolemia Maternal Meniere's disease Maternal Family/Other Meniere's disease Maternal Great Grandfather Denies family history of Anesthesia complication Bleeding disorder Social History Second hand smoke exposure: No Alcohol intake: never Adopted: No Caregiver/support person: Yes Lives independently: Yes Household members: spouse Housing: House Marital status: Highest education level completed: High School Graduate service: No Current occupational status: employed 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
--- NOTE | 2020-11-17 10:04 | W.PM.OPSUD ---
Surgery/Procedure H&P Update DATE OF PROCEDURE: November 17, 2020 DATE H&P PERFORMED: 11/12/20 H&P UPDATE INFORMATION: I have reviewed H&P completed within last 30 days, I have examined patient prior to procedure and No changes to prior documentation PREOP DIAGNOSIS: morbid obesity PRIMARY INDICATION FOR PROCEDURE: The same PLANNED PROCEDURE: Operation Date: 11/17/20 09:30 Proposed Procedures p Laparoscopic Gastric Sleeve w/ EGD [id number] e66.01(Not Applicable) - Bryce Aranda MD s EGD(Not Applicable) - Bryce Aranda MD
[2020-11-17] MEDS: midazolam 1 mg/mL INJ 2 mL 2 MG IVP (10:18)
--- NOTE | 2020-11-17 11:15 | PC.NURSE ---
Communicated with patient's mother via text per her request. NAYELI
--- NOTE | 2020-11-17 12:59 | PM.OP ---
Operative Report Date of procedure: November 17, 2020 Pre-op Diagnosis: morbid obesity Post-op diagnosis: same Post-op Findings: Appropriate size liver Procedure Done: Laparoscopic vertical sleeve gastrectomy and intraoperative EGD Specimens removed/disposition: Status post sleeve gastrectomy sutures marked proximal Surgeon: Bryce Aranda Fuel Agent: Surgical angelica Lea and Chetna OLGUIN Circulating nurse Aarti Tracey Anesthesia: General (GEMINI Avila and Dr. Pruitt) Estimated blood loss (mL): 15 IV fluids (mL): 1,000 Urine output (mL): 150 Condition: stable Disposition: floor (Morbid obesity) Brief History: This is a pleasant 34 years old female patient with history of morbid obesity and associated multiple medical comorbidities. Full H&P and informed consent per chart. Procedure: Patient was identified in holding area , appropriate pharmacologic DVT prophylaxis was given and preoperative IV fluid hydration, patient was then taken to the operating room where the patient was placed in supine position, intubated by anesthesia prophylactic antibiotics were given per protocol,Time-out was done verifying the patient's name/date of /planned procedure and destination after the procedure, all were in agreement.SCDs confirmed to be functioning, and beta lulú protocol was confirmed. A Lr catheter was inserted by the circulating nurse revealing clear urine. A foot board was applied to secure the patient while the patient is placed in reversed Trendelenburg, all pressure points were padded, and the patient was appropriately secured to the table, anesthesia was asked to rotate the table back and forth to verify that the patient is appropriately secured, and that was the case. The abdomen was prepped and draped under the usual sterile technique. A 1 cm transverse incision was made with a 15 blade scalpel approximately 15 cm below the xiphoid process and 3 cm left of the midline.A 12 mm optical trocar port was placed under direct vision into the peritoneal cavity without intial evidence of injury to peritoneal structures upon entry. The peritoneal cavity was insufflated with carbon dioxide gas up to 15 mmHg pressure.A 45? angle laparoscopy was placed through the port into the peritoneal cavity there was no significant blood, fluid, or evidence of intra-abdominal injury under direct visualization,Longer trocars were then used;a 12 mm trocar port was placed in the right epigastric region and a fourth 5 mm trocar port was placed in the mid epigastric region more caudad than and medial to the previous port. A 5 mm trocar port was placed in the left lateral flank and additional 5 mm trocar was inserted midway between the left lateral flank trocar and the initial 12 mm trocar. I lifted the omentum up to make sure there were no injuries encountered from the initial trocar insertion, the underlying transverse colon and small bowel viscera were normal. Except for a small mesenteric tear of the small bowel that I was able to put a sgifow-uu-alach 2-0 silk suture laparoscopically and 5 mm clips and the bowels maintain to be viable. A subxiphoid stab incision was made and dissection into the peritoneum with 5 mm obturator. A grasping laparoscopic clamp was inserted through here and clamped to the right seb of the diaphragm to elevate The liver for the entirety of the case. All trocars inserted were long arc trocars due to the thick layer of subcutaneous tissue that the patient has Patient was then placed in the reversed Trendelenburg Following this, the greater curvature of the stomach was freed from the omentum using the harmonic scalpel. This division included the short gastric vessels proximally. This dissection was carried from approximately 4 cm-6 cm proximal to the pylorus and extending all the way up to the angle of Hiss. During this process the posterior aspect of the stomach was mobilized from the underlying peritoneum and the posterior aspect of the stomach was well exposed. With the greater curvature of the stomach exposed from within 4-6 cm of the pylorus and extending to the angle of Hiss, which also included the posterior stomach, a 40 Ghanaian standard template passed under direct vision down the esophagus, stomach, and into the first part of the duodenum by the anesthesia provider and under direct guidance and visualization by me,via the laparoscopy. Using the template 40 Ghanaian aligned along the lesser curvature of the stomach and all the way to the first part of the Duodenum,the 40 Ghanaian Bougie was used as a template the laparoscopic vertical gastric sleeve was performed starting from a point about 5 cm from the pylorus along the greater curvature.Using the [employer] Laparoscopic ISAURA linear cutting stapler with [employer] enforcement, a series of tomy were used to transect the stomach in a vertical fashion along the left side of the template under direct visualization. Through the entire division of the stomach using the staplers,the template was always checked to be in good place and well aligned to the lesser curvature while dividing the stomach. This was carried all the way to the angle of [facility].Green loads were used for the distal two thirds of the stomach and Gold loads were used for the more proximal part of the stomach and the last load was blue load with reinforcement. The staple line along the remaining tubularized stomach was tested for leaks and bleeding under direct vision as the 40 Ghanaian template was exchanged (and there was no evidence of blood on the tip of the template) by a standard diagnostic EGD via the mouth by my me after I scrubbed out, CO2 insufflation was achieved and the staple line submerged under saline ,meanwhile a clamp was applied distally onto the end of the tubularized stomach to allow insufflation test for leak. There was no evidence of leak .There was adequate hemostasis along the staple line.EGD was taken out at this point after deflation of the tubularized stomach. The transected partial stomach, which included the greater curvature, was removed from the peritoneum through the first 12 mm trocar site, and was sent for permanent pathology. Prior to closure of the fascia. A final look laparoscopy identified no injuries, there was mild oozing at the fat pad at the GE junction and 5 m clips were applied as well as the distal part of the conduit. The site of the mesenteric small tear was checked again and there was no bleeding. And bowels continued to be viable. An interrupted #1 PDS suture on a granny needle suture passer was used to close the right epigastric and the other 12 mm trocar left of the midline fascial defects under direct visualization.The other trocars were removed under direct vision and no evidence of bleeding was identified. The pneumoperitoneum was decompressed.All skin incisions were irrigated with saline, then closed with tomy, followed by application of sterile dressings.The patient was extubated and taken to the recovery room with normal vital signs. All counts of instruments,sponges and needles were completed at the end of the procedure I was present for the whole entire procedure
[2020-11-17] MEDS: fentaNYL 50 mcg/mL INJ 2mL IVP ×2 (13:14→13:38)
[2020-11-17] MEDS: morphine 4 mg/mL SDV 1 mL 2 MG IVP ×2 (14:51→21:26)
[2020-11-17] MEDS: sodium chloride 0.9% 1,000 ML 150 ML IV ×2 (14:55→20:58)
[2020-11-17] MEDS: acetaminophen 1,000 MG/100 ML PIGGYBACK 400 MG IV (15:51)
[2020-11-17 16:59] LABS: Glucose Point of Care 252 mg/dL (70-110)
--- NOTE | 2020-11-17 17:11 | ANE.PACU2 ---
Inpatient post-anesthesia follow up: Airway intact: Yes Vital signs: Temperature 99.2 F Pulse Rate 97 Respiratory Rate 17 Blood Pressure 128/82 Pulse Oximetry 94 Oxygen Delivery Me thod Nasal Cannula Oxygen Flow Rate 2 Fraction of Inspir ed Oxygen Hydration adequate: Yes Nausea and vomiting: No Pain level: 2 Mental status: Baseline
[2020-11-17] MEDS: HYDROmorphone 1 mg/mL INJ 1 mL IVP (17:29)
[2020-11-17 20:29] LABS: Glucose Point of Care 242 mg/dL (70-110)
[2020-11-18] VITALS (14 sets, daily range): BP systolic 105–136; BP diastolic 66–84; PULSE 85–111; RESP 18–19; TEMP 36.4–37.5; O2SAT 93–95
[2020-11-18] MEDS: ondansetron 2 mg/ML SDV 2 mL 4 MG IVP (00:18)
[2020-11-18] MEDS: HYDROmorphone 1 mg/mL INJ 1 mL IVP ×3 (00:21→15:17)
[2020-11-18 02:43] LABS: Hematocrit 43.3 % (37.0-47.0); Hemoglobin 14.1 g/dL (11.5-15.3)
[2020-11-18 02:59] LABS: Anion Gap 12.1 (5-19); Blood Urea Nitrogen 4 mg/dL (6-20); Calcium 8.1 mg/dL (8.5-10.5); Carbon Dioxide 28 mmol/L (22-29); Chloride 99 mmol/L (98-107); Glucose 190 mg/dL (65-115); Osmolality Calculated 284 mOsm/kg (285-295); Potassium 3.1 mmol/L (3.5-5.1); Sodium 136 mmol/L (136-145)
[2020-11-18] MEDS: sodium chloride 0.9% 1,000 ML 150 ML IV ×2 (03:33→11:33)
[2020-11-18] MEDS: morphine 4 mg/mL SDV 1 mL 2 MG IVP (04:08)
--- NOTE | 2020-11-18 06:14 | P.PN_ITS ---
Subjective Subjective: Interval history: Patient overall doing well she did have some soreness and required pain medications which is expected,good urine output, hypokalemia noticed on the blood work today. Otherwise no acute events overnight Medications: Reviewed: Yes Vitals/I&O/Wt Last Vital Signs Temp 98.6 F 11/18/20 03:54 Pulse 111 H 11/18/20 03:54 Resp 19 H 11/18/20 04:08 BP 112/77 11/18/20 03:54 Pulse Ox 93 11/18/20 03:54 11/17/20 11/17/20 11/18/20 14:59 22:59 06:59 Intake Total 2049 / 2049 1007.5 / 3057.5 987.5 / 4045.0 Output Total 350 / 350 550 / 900 1525 / 2425 Balance 1700 / 1700 457.5 / 2157.5 -537.5 / 1620.0 Weight last 48 hrs Weight 256 lb Physical Exam Narrative: EXAM NARRATIVE: Patient is conscious alert oriented X3 BMI 46.8 Head and neck examination PERRLA no masses no cervical lymphadenopathy no jaundice Cardiac examination audible S1-S2 no murmurs no gallops no arrhythmias Chest is clear bilateral,abscence of Rhonchi or wheezes,no surgical emphysema Abdomen nontender except at the incision site nondistended soft no organomegaly guarding or rigidity/no signs of peritonitis. Dressing is dry and intact Extremities no cyanosis no clubbing no edema Urinary Catheter Management^: Lr: Cath Placed During This Visit: yes, but has since been removed by the nurse Reason for Continuing Indwelling Catheter: Perioperative Use in Selected Surgeries Urinary Catheter Date of Insertion: 11/17/20 Urinary Catheter Time of Insertion: 10:30 Date Urinary Catheter Removed: 11/18/20 Time Urinary Catheter Discontinued: 06:00 Data : 11/18/20 02:14 11/18/20 02:14 A&P Assessment and plan (1) Status post laparoscopic sleeve gastrectomy: Patient undergone laparoscopic sleeve gastrectomy 11/17/2020 Continue n.p.o. status until upper GI study is done once this is cleared we will start the patient on clear liquid diet. Incentive spirometer every hour T pharmacologic DVT prophylaxis Additional pain control using Tylenol IV and nurses were educated about that DC Lr catheter Encourage ambulation Continue cardiac monitoring Replacement of hypokalemia Assurance and education All questions have been answered and all concerns have been addressed to patient's satisfaction. Status: Acute Attestations Medical Necessity Statement*: Patient requiring inpatient hospitalization passing 2 midnights for perioperative bariatric surgery care Time Spent in Patient Care: 16 - 35 minutes (>than 50% of time spent in counselling and/or direct pt care on unit) . Coding Level of Care Code Acute Oil Drilling Engineer for Chg Fwd Diagnoses Status post laparoscopic sleeve gastrectomy Z98.84
[2020-11-18] MEDS: lidocaine 1% 5 ML in potassium chloride premix 100 ML 25 ML IV (06:25)
[2020-11-18] MEDS: heparin 5,000 unit/mL INJ 1 mL 5000 UNIT SUBCUT ×2 (06:27→15:17)
[2020-11-18 06:34] LABS: Glucose Point of Care 178 mg/dL (70-110)
--- NOTE | 2020-11-18 08:00 | FL_ITS ---
WS: [id number] Exam: [place] upper GI series [id number] Date/Time of Exam: 11/18/2020 9:20 AM Reason For Exam: Status Post Gastric Sleeve Preliminary survey of the abdomen shows a small amount of free air along the lower left peritoneal ca vity. Signs of prior cholecystectomy. Small cardiac battery pack also noted. Water-soluble contrast was administered orally for this exam. Swallowing function was normal. The esophagus shows normal motility. There is free spillage of contra st into the stomach. No extravasation of contrast outside the confines of the GI tract was noted. Con trast courses through the stomach and spills into the duodenal C-loop. FL/FL upper GI series [id number] IMPRESSION: 1. Intact gastric sleeve. No extravasation of contrast outside the confines of the GI tract. No obstruction was demonstrated. Contrast spills freely into the duodenal C-loop.
[2020-11-18] MEDS: acetaminophen 1,000 MG/100 ML PIGGYBACK 400 MG IV ×2 (08:45→19:36)
--- NOTE | 2020-11-18 10:07 | PC.CHAP ---
Pastoral Care Encounter/Spiritual Assessment Type of Contact [] Declined street vendor visit [] Patient/Family/Request visit [] Outpatient visit [] Follow-up visit [] Physician referral [] Code/Alert [x] Routine visit [] Staff referral [] Actively dying [] Patient sleeping [] Family support [] [x] Out of room [] Palliative care [] [] Receiving care in room [] Pre-surgical visit [] Trauma [] Long length of stay [] ICU visit [] Other: Relational/Emotional Strength [] Patient feels connected with others/family/visitors/staff [] Distress [] Loneliness/isolation [] Abandonment Spirituality of Patient [] Person of Sunni [] Attends Methodist of their Sunni [] Believes in Prayer [] Reads Bible or Baptist materials [] There are Spiritual issues to be addressed Clinical Engineering Director Interventions [] Prayer [] Active listening [] Non-anxious presence [] Spiritual/emotional support [] Crisis/trauma care [] Spiritual counseling [] Bereavement support [] Provided bereavement packet [] Provided Bible/devotional materials [] Provided toy/stuffed animal, coloring book to patient or family member [] Provided Communion [] Anointing/[place] [] Salvation [] Completed spiritual assessment [] Other: Impact on Illness or Injury [] Angry [] Fearful [] Anxious [] Often cries [] Exhaustion [] Unable to work [] Unable to attend confucianist [] Unable to walk/stand [] Unable to read [] Unable to drive [] Unable to eat/drink [] Unable to sleep [] Unable to be with family [] Patient intubated [] Other: Summary Time spent with patient
[2020-11-18] MEDS: diatrizoate meglumine 120 mL Sol PO (10:29)
[2020-11-18 10:34] LABS: Glucose Point of Care 189 mg/dL (70-110)
--- NOTE | 2020-11-18 15:47 | PC.NURSE ---
As i was checking pt vitals her o2 was reading 41 I left the room to go get charge nurse sage lopez. she camee in room and put pt back on oxygen. o2 is currently 93 at 4 liters.
--- NOTE | 2020-11-18 16:04 | XRR_ITS ---
PROCEDURE INFORMATION: Exam: XR Chest Exam date and time: 11/18/2020 4:22 PM Age: 34 years old Clinical indication: Pain; Other: Post op; Patient HX: HX of gastric sleeve 11/17/20; Additional info: Possible pnx TECHNIQUE: Imaging protocol: XR of the chest. Views: 1 view. COMPARISON: CR XR chest 1V portable [id number] 08/18/2020 2:38 PM FINDINGS: Limitations: The study is made with less than full inspiration. Lungs: There is some partial atelectasis or infiltrate in the retrocardiac left lower lobe. Visualized portions of the right lung are clear. Pleural spaces: No pneumothorax is identified. Heart/Mediastinum: Heart is within normal limits of size. Bones/joints: Unremarkable. XR/XR chest 1V portable [id number] IMPRESSION: Left basilar atelectasis
[2020-11-18] MEDS: sodium chlor 0.9% + KCl 20 mEq 20 MEQ/1,000 ML BAG 75 MEQ IV (17:35)
[2020-11-18 17:42] LABS: Glucose Point of Care 141 mg/dL (70-110)
[2020-11-18 21:04] LABS: Glucose Point of Care 157 mg/dL (70-110)
[2020-11-19] VITALS (9 sets, daily range): BP systolic 104–135; BP diastolic 70–84; PULSE 105–125; RESP 17–19; TEMP 36.3–37.8; O2SAT 92–99
[2020-11-19] MEDS: heparin 5,000 unit/mL INJ 1 mL 5000 UNIT SUBCUT ×3 (00:26→15:24)
[2020-11-19] MEDS: HYDROcodone-acetaminophen 5-325 mg Tablet 1 TAB PO ×3 (02:46→17:01)
[2020-11-19] MEDS: ondansetron 2 mg/ML SDV 2 mL 4 MG IVP (02:47)
--- NOTE | 2020-11-19 05:43 | P.PN_ITS ---
Subjective Subjective: Interval history: Patient today is hurting some overall she has been having a better night, continues to have adequate urine output and passing gas. Medications: Reviewed: Yes Vitals/I&O/Wt Last Vital Signs Temp 98.6 F 11/19/20 04:15 Pulse 116 H 11/19/20 04:15 Resp 18 11/19/20 04:15 BP 118/74 11/19/20 04:15 Pulse Ox 92 11/19/20 04:15 11/18/20 11/18/20 11/19/20 14:59 22:59 06:59 Intake Total 1325 / 1325 1260 / 2585 Output Total 500 / 500 Balance 1325 / 1325 760 / 2085 Physical Exam Narrative: EXAM NARRATIVE: Patient is conscious alert oriented X3 BMI 46.8 Head and neck examination PERRLA no masses no cervical lymphadenopathy no jaundice Cardiac examination audible S1-S2 no murmurs no gallops no arrhythmias Chest is clear bilateral,abscence of Rhonchi or wheezes,no surgical emphysema Abdomen nontender except at the incision site nondistended soft no organomegaly guarding or rigidity/no signs of peritonitis. Incisions are clean dry and Extremities no cyanosis no clubbing no edema Urinary Catheter Management^: Lr: Cath Placed During This Visit: yes, but has since been removed by the nurse Reason for Continuing Indwelling Catheter: Decision to DC Catheter Urinary Catheter Date of Insertion: 11/17/20 Urinary Catheter Time of Insertion: 10:30 Date Urinary Catheter Removed: 11/18/20 Time Urinary Catheter Discontinued: 06:30 Data : 11/19/20 06:29 11/19/20 06:29 A&P Assessment and plan (1) Status post laparoscopic sleeve gastrectomy: Patient undergone laparoscopic sleeve gastrectomy 11/17/2020 We will add oxycodone for breakthrough pain in addition to as needed hydrocodone Incentive spirometer every hour We will continue pharmacologic DVT prophylaxis Encourage ambulation Continue cardiac monitoring Replacement of hypokalemia Potential discharge home today in the evening pending clinical progress through the day Start resuming home medication Assurance and education All questions have been answered and all concerns have been addressed to patient's satisfaction. Status: Acute Attestations Medical Necessity Statement*: Patient requiring inpatient hospitalization passing 2 midnights for perioperative bariatric surgery care Time Spent in Patient Care: 16 - 35 minutes (>than 50% of time spent in counselling and/or direct pt care on unit) . Coding Level of Care Code Acute Medical Or Surgical Instrument Maker for Chg Fwd Diagnoses Status post laparoscopic sleeve gastrectomy Z98.84
[2020-11-19] MEDS: oxyCODONE 5 mg IR Tab/Cap PO (06:39)
[2020-11-19 06:42] LABS: Hematocrit 44.2 % (37.0-47.0)
[2020-11-19] MEDS: sodium chlor 0.9% + KCl 20 mEq 20 MEQ/1,000 ML BAG 75 MEQ IV (06:53)
[2020-11-19 07:01] LABS: Anion Gap 17.3 (5-19); Blood Urea Nitrogen 3 mg/dL (6-20); Carbon Dioxide 26 mmol/L (22-29); Chloride 101 mmol/L (98-107); Glucose 167 mg/dL (65-115); Osmolality Calculated 292 mOsm/kg (285-295); Potassium 3.3 mmol/L (3.5-5.1); Sodium 141 mmol/L (136-145)
--- NOTE | 2020-11-19 07:11 | PC.NURSE ---
Shift Summary Patient rested off and on throughout the night. Patient's pain was uncontrolled for most of the night, as the patient did not voice pain to this nurse. This nurse explained the importance of keeping the pain under control with patient verbalizing understanding. Patient's heart rate remained tachycardic most of the night ranging between 113 and 126. Patient was on 1L of oxygen most of the night. Oxygen level dropped to 87-88 when tried to take off the 1L of oxygen. Patient's oxygen saturation remained between 94-96% on 1L throughout the night. Patient's oxygen decreased to room air. Patient's oxygen saturation on room air is at 93-95%. Patient is sitting up in bedside chair.
[2020-11-19 07:21] LABS: Glucose Point of Care 153 mg/dL (70-110)
[2020-11-19] MEDS: psyllium powder Pkt 1 PACKET PO ×2 (08:37→18:20)
[2020-11-19] MEDS: lidocaine 1% 5 ML in potassium chloride premix 100 ML 25 ML IV (09:09)
--- NOTE | 2020-11-19 10:16 | PC.NURSE ---
Patient had c/o burning in her right IV site. Site was inspected and has no redness/edema/other complications noted and is patent and flushing without difficulty. Patient has Potassium running currently as well as 0.9% NS with 20mEq of KCl at 75 mL/hour. I called and spoke with Dr. Aranda and he gave a verbal order to d/c the NS completely and only run the Potassium at this time. He also gave a verbal order for IV Pepcid 20 mg BID to be added to patient's orders. Orders placed. I followed up with patient and informed her of the new orders as well as provided education on Pepcid IV including: dosage, frequency, indications, and side effects. She verbalizes understanding and states her pain is much more controlled now as well, rating it at 2-3/10. She remains sitting in the chair with no further complaints at this time.
[2020-11-19] MEDS: famotidine 20 mg/2 mL INJ IVP (10:38)
[2020-11-19 11:25] LABS: Glucose Point of Care 190 mg/dL (70-110)
[2020-11-19] MEDS: acetaminophen 1,000 MG/100 ML PIGGYBACK 400 MG IV (13:05)
[2020-11-19] MEDS: VENLAFAXINE 100 MG 100 EACH PO (15:24)
--- NOTE | 2020-11-19 17:57 | P.DS_ITS ---
Discharge Providers Date of Admission: 11/17/20 12:51 Date of Discharge: November 19, 2020 Attending Provider at Admission: Bryce Aranda MD Attending Provider at Discharge: Bryce Aranda MD Primary Care Provider: DAVID Merida Diagnoses at Discharge Discharge Diagnosis (1) Status post laparoscopic sleeve gastrectomy: Status: Resolved Reason for Visit Reason for Visit: lap gastric sleeve with egd Hospital Course Hospital Course This is a pleasant 34 years old female patient undergone laparoscopic vertical sleeve gastrectomy for morbid obesity. She overall did well her pain has been under control and tolerating p.o. intake, adequate urine output and continues to have stable vital signs yet she did have an element of tachycardia in response to her pain that was adequately controlled through her hospital stay. Currently patient's pain is under appropriate control and pertinent home medications were resumed and her nausea is under control and no complaints Plan to discharge home today on pain medications, antinausea medications as well as PPI therapy. And return back to weight loss surgery office in 1 week. Appropriate education was given to the patient with regard to potential hypoglycemic episodes as she has to monitor her blood glucose. Also education about hypokalemia. Physical Exam Narrative: EXAM NARRATIVE: Patient is conscious alert oriented X3 BMI 46.8 Head and neck examination PERRLA no masses no cervical lymphadenopathy no jaundice Cardiac examination audible S1-S2 no murmurs no gallops no arrhythmias Chest is clear bilateral,abscence of Rhonchi or wheezes,no surgical emphysema Abdomen nontender except at the incision site nondistended soft no organomegaly guarding or rigidity/no signs of peritonitis. Incisions are clean dry and Extremities no cyanosis no clubbing no edema Urinary Catheter Management^: Lr: Cath Placed During This Visit: yes, but has since been removed by the nurse Reason for Continuing Indwelling Catheter: Decision to DC Catheter Urinary Catheter Date of Insertion: 11/17/20 Urinary Catheter Time of Insertion: 10:30 Date Urinary Catheter Removed: 11/18/20 Time Urinary Catheter Discontinued: 06:30 Discharge Data Data Completed and Pending: Completed Studies During Hospitalization Category Date Time Status CXRP [XR chest 1V portable [id number]] S tat Exams 11/18/20 16:04 Completed [place] [id number] Routine Exams 11/18/20 08:00 Completed Pending at discharge Category Date Time Status ES surgery / GI i mages Routine Exams 11/17/20 10:07 Taken Pathology: Surgic al [PTH] Routine Pth 11/17/20 13:07 Received Labs from last 24 hours 11/19/20 11/19/20 11/19/20 11:09 06:29 06:29 Hgb 14.0 Hct 44.2 Sodium 141 Potassium 3.3 L Chloride 101 Carbon Dioxide 26 Anion Gap 17.3 BUN 3 L Creatinine 0.5 GFR Calculation 143.0 H Glucose 167 H POC Glucose 190 H Calculated Osmolal ity 292 Calcium 8.0 L 11/19/20 11/18/20 06:20 21:00 Hgb Hct Sodium Potassium Chloride Carbon Dioxide Anion Gap BUN Creatinine GFR Calculation Glucose POC Glucose 153 H 157 H Calculated Osmolal ity Calcium Vitals: Last Vital Signs Temp 98.7 F 11/19/20 16:00 Pulse 105 H 11/19/20 16:00 Resp 18 11/19/20 16:00 BP 108/70 11/19/20 16:00 Pulse Ox 95 11/19/20 16:00 Discharge Plan Discharge Patient Disposition: Home Condition: Stable Prescriptions: New Transderm-Scop 1 mg over 3 days patch 3 day 1 patch transdermal Q3D PRN (Reason: nausea and vomiting) Qty: 4 RF: 2 hydrocodone-acetaminophen 5-325 mg tablet 1 tab PO Q6H PRN (Reason: pain) Qty: 28 RF: 0 Protonix 40 mg tablet,delayed release (DR/EC) 40 mg PO DAILY Qty: 30 RF: 2 Continued Corlanor 7.5 mg tablet 7.5 mg PO BID RF: 0 promethazine 25 mg tablet 25 mg PO Q8H PRN (Reason: Nausea) Qty: 30 RF: 2 diazepam [Valium] 5 mg tablet 5 mg PO BID PRN (Reason: anxiety) Qty: 60 RF: 0 venlafaxine 100 mg tablet 100 mg PO TID Qty: 90 RF: 2 clonidine HCl 0.1 mg tablet 0.1 mg PO BID PRN (Reason: hypertensive emergency) Qty: 60 RF: 2 Victoza 3-Buddy 0.6 mg/0.1 mL (18 mg/3 mL) pen injector 1.8 mg SUBCUT Q24H Qty: 9 RF: 0 doxepin 10 mg capsule 10 mg PO .at bedtime Qty: 30 RF: 2 valsartan-hydrochlorothiazide 160-25 mg tablet 1 tab PO DAILY Qty: 30 RF: 0 baclofen 20 mg tablet 20 mg PO TID PRN (Reason: Pain) RF: 0 Emgality Pen 120 mg/mL Pen Injector 120 mg SUBCUT Q30D RF: 0 Discharge Orders: Discharge Order (Routine); Ordered 11/19/20 Ordered By: Bryce Aranda Referrals: Bryce Aranda MD [Physician] - (Return to Bariatric surgery office in [address] Aranda' office tomorrow and schedule an appointment to be seen in one week.) Discharge Diet: As Directed Discharge Activity: Limit activity as instructed Patient Instructions: Opioid Safety Activity Restrictions/Additional Instructions: 1. Patient can shower after 48 hours from surgery 2. Remove Dermabond 7 to 10 days after surgery, if there is a secondary dressing can take down after 48 hours. 3. Up and walking as tolerated 4. Do not lift more than 5 pounds first 2 weeks after surgery and not more than 25 pounds 6 to 8 weeks after surgery. 5. Do not operate heavy machinery or drive while using pain medications. 6.Contact the office or return to the ER for worsening nausea vomiting fevers or chills, or noticing any redness around incision sites or discharge. 7. Closer monitoring of blood glucose levels to avoid patient going into hypoglycemia Discharge Attestations Time Spent in Discharge Care*: greater than 30 min Specific Discharge Activities: educating patient and educating and/or supporting family/caregiver Status at Discharge: Cognitive status at discharge: cognitively intact , Behavioral status at discharge: cooperative , Functional status at discharge: independent ambulation Overall status at discharge: patient is progressing back to baseline Quality Metrics Clinical Quality Measures During this hospital stay, did patient experience: None Coding Level of Care Code Acute Chg FW DC note Diagnoses Status post laparoscopic sleeve gastrectomy Z98.84
[2020-11-19 18:15] LABS: Glucose Point of Care 166 mg/dL (70-110)
[2020-11-20 00:26] VITALS: BP 108/70; PULSE 105; RESP 18; TEMP 37.1; O2SAT 95
== END 2020-11-19 18:00 | disposition home or self-care (01) | DRG 621 ==
LOC: MEDSURG 11-18 07:01
PROVIDERS: Admitting Provider Surgery; PCP Nurse Practitioner; Visit Provider Surgery
PROC: 0DB64Z3 Excision of Stomach, Percutaneous Endoscopic Approach, Vertical (ICD-10-PCS; CPT 43775; principal; 2020-11-17 09:30)
PROC: 0DJ08ZZ Inspection of Upper Intestinal Tract, Via Natural or Artificial Opening Endoscopic (ICD-10-PCS; CPT 43235; 2020-11-17 09:30)
DX: E66.01 Morbid (severe) obesity due to excess calories (principal); G89.18 Other acute postprocedural pain; K21.9 Gastro-esophageal reflux disease without esophagitis; E11.9 Type 2 diabetes mellitus without complications; E28.2 Polycystic ovarian syndrome; G47.30 Sleep apnea, unspecified; G43.109 Migraine with aura, not intractable, without status migrainosus; F41.1 Generalized anxiety disorder; E87.6 Hypokalemia; Z68.43 Body mass index [BMI] 50.0-59.9, adult; Z79.84 Long term (current) use of oral hypoglycemic drugs; Z90.710 Acquired absence of both cervix and uterus
CPT/HCPCS: 36415; 36416; 71045; 74240; 80048; 80053; 80061; 82310; 82607; 82728; 82746; 82962; 83540; 83550; 83735; 83970; 84100; 84443; 85014; 85018; 85025; 85610; 88309; 96365; 96372; 96374; C9113; J0690; J1100; J1170; J1644; J1815; J2250; J2270; J2405; J2550; J2704; J2710; J3010; J3480; J3490; J7030; Q9963

== ENCOUNTER 2020-12-01 20:00 | Emergency (ER) | payer MEDICAID, SELFPAY ==
[2020-12-01 20:11] VITALS: BP 148/106; PULSE 110; RESP 18; TEMP 36.7; O2SAT 97; BMI 44.0
--- NOTE | 2020-12-01 20:35 | ED_ITS ---
HPI - Wound/Laceration General: Chief Complaint: Wound/Laceration Stated Complaint: abominal incision site issues Time Seen by Provider: 12/01/20 20:19 History of Present Illness: HPI narrative: Patient with recent history of bariatric surgery. Did have follow-up Dr. [place].his on the second and was prescribed Bactrim for abdominal wound cellulitis. Patient states that she had a lot of redness around the wound which has improved since she been on antibiot ics. She notes some drainage from the wound today. Onset (ago): week(s) Location: abdomen Associated symptoms: Denies chills, fever(s), nausea or vomiting Review of Systems Const: Denies: fever(s), chills or body aches Eyes: Denies: change in vision or blurry vision ENMT: Denies: throat pain or nasal congestion Card: Denies: chest pain or dyspnea on exertion Resp: Denies: dyspnea, productive cough or non-productive cough GI: Denies: abdominal pain, nausea or vomiting Musc: Denies: extremity pain Skin/Breast: Reports: erythema (Redness has improved quite a bit patient states), skin tenderness and surgical incision (Drainage from surgical incision. Started today.); Denies: rash Neuro: Denies: headache(s) Psych: Denies: anxiety or depression Jeffrey/Lymph: Denies: easy bruising [facility] PFSH: Medical History BMI 50.0-59.9, adult Chronic migraine with aura Depression Generalized anxiety disorder Panic disorder PCOS (polycystic ovarian syndrome) Sleep apnea, unspecified SVT (supraventricular tachycardia) Surgical History History of appendectomy (07/04/18) History of bladder surgery (1996) 1996 and 1994; Possibly just urethral History of cholecystectomy (01/29/17) History of drainage of abscess (2013) 2013 Left axillary region. Excision of sinus tract due to recurrent abscess formation. 2010 Left axillary region. Excision of sinus tract due to recurrent abscess formation. History of hysterectomy (~2017) Attributes: Left. Comments: ovary gone History of tonsillectomy and adenoidectomy (1993) Status post laparoscopic sleeve gastrectomy Status post placement of implantable loop recorder Family History Mother Hypertension Meniere's disease Father Hypertension Hypercholesterolemia Grandfather Cancer Paternal; Lung Grandmother Cancer Maternal; Bone Hypercholesterolemia Maternal Meniere's disease Maternal Family/Other Meniere's disease Maternal Great Grandfather Denies family history of Anesthesia complication Bleeding disorder Social History Second hand smoke exposure: No Alcohol intake: never Adopted: No Caregiver/support person: Yes Lives independently: Yes Household members: spouse Housing: House Marital status: Highest education level completed: High School Graduate service: No Current occupational status: employed 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 Current occupational exposures/hazards: No Pets and animals: No History of recent travel: No Sexually active: Yes Current gender identity: Female Sunni/Congregational: Moravian Special sunni needs: No Agree to transfusion: No Financial difficulty paying for basics: Decline to Answer Physical Exam Const: COMMON NORMALS: no acute distress, average body habitus and patient oriented x3 HENMT: COMMON NORMALS: normocephalic HEAD & SCALP: normal to inspection and normocephalic FACE & SINUS: normal facial exam Eye: COMMON NORMALS: conjunctivae normal GENERAL EYE: appearance normal, both eyes and all related structures CONJUNCTIVA: Yes conjunctivae normal Neck/C-Spine: COMMON NORMALS: no JVD Chest: COMMONS NORMALS: normal inspection of the chest Resp: COMMON NORMALS: normal respiratory effort and clear to auscultation bilaterally AUSCULTATION: clear to auscultation bilaterally Cardio: COMMON NORMALS: no JVD, regular rate and regular rhythm RATE: regular rate RHYTHM: regular rhythm GI: COMMON NORMALS: Normal to inspection, nondistended, normoactive bowel sounds present Extremity: COMMON NORMALS: normal to inspection and full ROM Neuro: COMMON NORMALS: patient oriented x3 Skin: OTHER: Mild redness to the surgical wound. Probably about half inch around the borders of the wound. There is serosanguineous drainage noted no odor no pus noted Course Vital Signs: Vital signs: Vital Signs Temperature 98.1 F 12/01/20 20:11 Pulse Rate 110 H 12/01/20 20:11 Respiratory Rate 18 12/01/20 20:11 Blood Pressure 148/106 12/01/20 20:11 Pulse Oximetry 97 12/01/20 20:11 Discharge Plan Discharge Patient Disposition: Home Clinical Impression: Postoperative cellulitis of surgical wound Condition: Stable Prescriptions: New Bactrim DS 800-160 mg tablet 1 tab PO BID 7 Days Qty: 14 RF: 0 No Action Corlanor 7.5 mg tablet 7.5 mg PO BID RF: 0 promethazine 25 mg tablet 25 mg PO Q8H PRN (Reason: Nausea) Qty: 30 RF: 2 diazepam [Valium] 5 mg tablet 5 mg PO BID PRN (Reason: anxiety) Qty: 60 RF: 0 sulfamethoxazole-trimethoprim [Bactrim DS] 800-160 mg tablet 1 tab PO BID 7 Days Qty: 14 RF: 0 venlafaxine 100 mg tablet 100 mg PO TID Qty: 90 RF: 2 clonidine HCl 0.1 mg tablet 0.1 mg PO BID PRN (Reason: hypertensive emergency) Qty: 60 RF: 2 Victoza 3-Buddy 0.6 mg/0.1 mL (18 mg/3 mL) pen injector 1.8 mg SUBCUT Q24H Qty: 9 RF: 0 valsartan-hydrochlorothiazide 160-25 mg tablet 1 tab PO DAILY Qty: 30 RF: 0 doxepin 10 mg capsule 10 mg PO .at bedtime Qty: 30 RF: 2 baclofen 20 mg tablet 20 mg PO TID PRN (Reason: Pain) RF: 0 Emgality Pen 120 mg/mL Pen Injector 120 mg SUBCUT Q30D RF: 0 Transderm-Scop 1 mg over 3 days patch 3 day 1 patch transdermal Q3D PRN (Reason: nausea and vomiting) Qty: 4 RF: 2 hydrocodone-acetaminophen 5-325 mg tablet 1 tab PO Q6H PRN (Reason: pain) Qty: 28 RF: 0 Protonix 40 mg tablet,delayed release (DR/EC) 40 mg PO DAILY Qty: 30 RF: 2 Discharge Orders: Discharge ED (Routine); Ordered 12/01/20 Ordered By: Kali Vega Referrals: Rosalba Maldonado, [facility] [Primary Care Provider] - Discharge Diet: Usual diet Discharge Activity: Increase activity as tolerated Patient Instructions: Cellulitis (ED) Activity Restrictions/Additional Instructions: Follow-up with medical provider as directed. Take medications as prescribed. Return to the ER or your medical provider if condition worsens. Please read and understand discharge instructions. If any questions ask please. Contact Dr. Oates office for appointment next week to have reevaluation wound Coding Level of Care Code ED [facility] [place] for Nicolas Moreno
[2020-12-01 20:49] VITALS: BP 127/83; PULSE 67; RESP 18; TEMP 36.7; O2SAT 97
--- NOTE | 2020-12-02 09:24 | PC.NURSE ---
[facility] called to verify discharge Rx of bactrim as patient was recently prescribed by surgeon and hasnt finished dose. Alex instructed for patient to finish current bactrim and follow up with PCP, notto fill 2nd Rx of Bactrim
--- NOTE | 2020-12-03 17:54 | PC.NURSE ---
Per verbal order of Kali Vega, Pt does need 2nd round of Bactrim. [facility] contacted and prescription called in.
== END 2020-12-01 20:51 | disposition home or self-care (01) ==
PROVIDERS: Emergency Provider Nurse Practitioner Family; PCP Nurse Practitioner
DX: T81.40XA Infection following a procedure, unspecified, initial encounter (principal); L03.311 Cellulitis of abdominal wall
CPT/HCPCS: 99282

== ENCOUNTER → 2020-12-08 09:54 | Outpatient (BNVA) | payer MEDICAID, SELFPAY | PROVIDERS: PCP Nurse Practitioner; Visit Provider Counselor Professional | DX: F41.1 Generalized anxiety disorder (principal) | CPT/HCPCS: 90834; 90832 ==

== ENCOUNTER → 2020-12-15 09:35 | Outpatient (BNVA) | payer MEDICAID, SELFPAY | PROVIDERS: PCP Nurse Practitioner; Visit Provider Counselor Professional | DX: F41.1 Generalized anxiety disorder (principal) | CPT/HCPCS: 90832 ==

== ENCOUNTER 2020-12-27 09:24 | Observation (INO) | payer MEDICAID, SELFPAY ==
[2020-12-27] VITALS (10 sets, daily range): BP systolic 107–143; BP diastolic 71–98; PULSE 59–88; RESP 14–18; TEMP 36.4–37; O2SAT 75–100; BMI 43.9
--- NOTE | 2020-12-27 09:28 | CTR_ITS ---
PROCEDURE INFORMATION: Exam: CT Angiography Head With Contrast, Arteriography Exam date and time: 12/27/2020 9:28 AM Age: 34 years old Clinical indication: Weakness; Patient HX: Left sided flaccidity dilated pupils slurred speech; Additional info: Weakness, potential CVA TECHNIQUE: Imaging protocol: Computed tomography angiography of the head with contrast. Exam focused on the arteries. 3D rendering (Not supervised by radiologist): MIP and/or 3D reconstructed images were created by the technologist. Radiation optimization: All CT scans at this facility use at least one of these dose optimization techniques: automated exposure control; mA and/or kV adjustment per patient size (includes targeted exams where dose is matched to clinical indication); or iterative reconstruction. Contrast material: OMNI 350; Contrast volume: 95 ml; Contrast route: INTRAVENOUS (IV); COMPARISON: CT head wo con* [id number] 12/27/2020 9:24 AM RADIATION DOSE METRICS: Total DLP (mGy-cm): 2387.41 FINDINGS: ANTERIOR CIRCULATION: Right internal carotid artery: Unremarkable. Intracranial segment is patent with no significant stenosis. No aneurysm. Right middle cerebral artery: Unremarkable. No occlusion or significant stenosis. No aneurysm. Right anterior cerebral artery: Unremarkable. No occlusion or significant stenosis. No aneurysm. Left internal carotid artery: Unremarkable. Intracranial segment is patent with no significant stenosis. No aneurysm. Left middle cerebral artery: Unremarkable. No occlusion or significant stenosis. No aneurysm. Left anterior cerebral artery: Unremarkable. No occlusion or significant stenosis. No aneurysm. POSTERIOR CIRCULATION: Right vertebral artery: Unremarkable. No occlusion or significant stenosis. No aneurysm. Left vertebral artery: Unremarkable. No occlusion or significant stenosis. No aneurysm. Basilar artery: Unremarkable. No occlusion or significant stenosis. No aneurysm. Right posterior cerebral artery: Unremarkable. No occlusion or significant stenosis. No aneurysm. Left posterior cerebral artery: Unremarkable. No occlusion or significant stenosis. No aneurysm. Brain: No definite mass, mass effect, or midline shift. Cerebral ventricles: No ventriculomegaly. Bones/joints: Unremarkable. No acute fracture. Soft tissues: Unremarkable. IMPRESSION: No large vessel stenosis or occlusion. PROCEDURE INFORMATION: Exam: CT Angiography Neck With Contrast Exam date and time: 12/27/2020 9:28 AM Age: 34 years old Clinical indication: Weakness; Patient HX: Left sided flaccidity dilated pupils slurred speech; Additional info: Weakness, potential CVA TECHNIQUE: Imaging protocol: Computed tomography angiography of the neck with contrast. 3D rendering (Not supervised by radiologist): MIP and/or 3D reconstructed images were created by the technologist. Radiation optimization: All CT scans at this facility use at least one of these dose optimization techniques: automated exposure control; mA and/or kV adjustment per patient size (includes targeted exams where dose is matched to clinical indication); or iterative reconstruction. Contrast material: OMNI 350; Contrast volume: 95 ml; Contrast route: INTRAVENOUS (IV); COMPARISON: CT head wo con* [id number] 12/27/2020 9:24 AM RADIATION DOSE METRICS: Total DLP (mGy-cm): 2387.41 FINDINGS: Right common carotid artery: No stenosis. No dissection or occlusion. Right internal carotid artery: No stenosis of the extracranial segment. No dissection or occlusion. Right external carotid artery: No occlusion or stenosis of the origin. Left common carotid artery: No stenosis. No dissection or occlusion. Left internal carotid artery: No stenosis of the extracranial segment. No dissection or occlusion. Left external carotid artery: No occlusion or stenosis of the origin. Right vertebral artery: No stenosis. No dissection or occlusion. Left vertebral artery: No stenosis. No dissection or occlusion. Soft tissues: Normal. No significant soft tissue swelling. Bones/joints: No acute fracture. CT/CT angio headneck* [id number] IMPRESSION: No stenosis or occlusion. REFERENCES: NASCET CRITERIA. The degree of internal carotid artery stenosis is based on NASCET criteria. Normal is no stenosis. Mild is less than 50% stenosis. Moderate is 50-69% stenosis. Severe is 70% to 99% stenosis. Total occlusion is no detectable patent lumen. Radiation Dose CTDIVOL = (mGy): DLP = 2387.41~2387.41 (mGy-cm)
--- NOTE | 2020-12-27 09:29 | CTR_ITS ---
PROCEDURE INFORMATION: Exam: CT Head Without Contrast Exam date and time: 12/27/2020 9:29 AM Age: 34 years old Clinical indication: Other: Weakness; Patient HX: Left sided flaccidity dilated pupils slurred speech; Additional info: Weakness, suspected CVA TECHNIQUE: Imaging protocol: Computed tomography of the head without contrast. Radiation optimization: All CT scans at this facility use at least one of these dose optimization techniques: automated exposure control; mA and/or kV adjustment per patient size (includes targeted exams where dose is matched to clinical indication); or iterative reconstruction. Other technique: STROKE PROTOCOL was implemented. COMPARISON: CT head wo con* [id number] 11/05/2018 8:15 PM RADIATION DOSE METRICS: Total DLP (mGy-cm): 924.08 FINDINGS: Brain: Normal. No hemorrhage. Unremarkable white matter. No mass effect. Cerebral ventricles: No ventriculomegaly. Paranasal sinuses: Visualized sinuses are unremarkable. No fluid levels. Mastoid air cells: Visualized mastoid air cells are well aerated. Bones/joints: Unremarkable. No acute fracture. Soft tissues: Unremarkable. CT/CT head wo con* [id number] IMPRESSION: No acute intracranial abnormality. ASSESSMENT: ASPECTS ([place] Stroke Program Early CT Score) is 10. Radiation Dose CTDIVOL = (mGy): DLP = 924.08 (mGy-cm)
--- NOTE | 2020-12-27 09:29 | ECG_ITS ---
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1985 Requested By: Jorge Christy Order Number: [id number] Reading MD: SONA NO Measurements Intervals [place] Rate: 67 P: 20 DC: 127 QRS: 4 QRSD: 123 T: 16 QT: 438 QTc: 465 Interpretive Statements SINUS RHYTHM POSSIBLE RIGHT VENTRICULAR CONDUCTION DELAY [RSR (QR) IN V1/V2] NONSPECIFIC T-WAVE ABNORMALITY Compared to ECG 08/18/2020 14:42:22 T-wave abnormality now present Incomplete right bundle-branch block no longer present Myocardial infarct finding no longer present Electronically Signed On 12-28-2020 18:50:42 CDT by SONA NO [id number]
--- NOTE | 2020-12-27 09:29 | XRR_ITS ---
PROCEDURE INFORMATION: Exam: XR Chest Exam date and time: 12/27/2020 9:29 AM Age: 34 years old Clinical indication: Other: Weakness; Patient HX: Left sided flaccidity dilated pupils slurred speech TECHNIQUE: Imaging protocol: XR of the chest. Views: 1 view. COMPARISON: CR XR chest 1V portable [id number] 11/18/2020 4:23 PM FINDINGS: Lungs: There is minimal linear atelectasis in the right base. Otherwise lungs are clear. Pleural spaces: Unremarkable. No pleural effusion. No pneumothorax. Heart/Mediastinum: Unremarkable. No cardiomegaly. Bones/joints: Unremarkable. XR/XR chest 1V portable [id number] IMPRESSION: No significant abnormality.
[2020-12-27] MEDS: iohexol 350 mg/mL 100 mL Btl IV (09:40)
--- NOTE | 2020-12-27 09:48 | W.ED.NEUROSD ---
HPI - Neuro Symptoms/Deficit General: Chief Complaint: Neuro Symptoms/Deficit Stated Complaint: STROKE LIKE SYMPTOMS Time Seen by Provider: 12/27/20 09:27 Source: patient, family (mother) and EMS Mode of arrival: EMS Limitations: other (Mild slurred speech.) History of Present Illness: HPI Narrative: Patient reportedly was doing fine last night. Last known well time was 1930 last night. Patient awakened this morning with slurred speech and left upper and lower extremity weakness. Patient complaints of mild frontal headache. Patient with a history of hemiplegic migraines, tachycardia not otherwise specified. Patient also with a history anxiety. Possible history includes hypertension and type 2 diabetes that have resolved since having gastric bypass surgery one month ago. Patient states she does have a loop recorder for history of tachycardia. She denies any pain to the chest abdomen or pelvis. She denies any pain in her extremities. She denies any shortness of breath or nausea. Complaint of headache to the right temporal parietal area. Timing confirmed by: family member (Mother) Location: speech, left arm and left leg History of same: Yes (Similar episode in the past but not as severe.) Severity: severe Quality: weak, tingling and constant Relieving factors: none Exacerbating factors: none Context: other (Patient awakened with the symptoms.) On Anticoagulants: No Associated symptoms: Reports headache(s), malaise, tingling and weakness; Deny chest pain, cough, diaphoresis, fevers/chills, anorexia, nausea, seizures, short of breath, syncope, vertigo or vomiting Treatments Prior to Arrival: none Review of Systems Const: Reports: fatigue and malaise; Denies: fever(s), chills or diaphoresis Eyes: Denies: change in vision ENMT: Denies: throat pain Card: Denies: chest pain or syncope Resp: Denies: dyspnea or wheezing GI: Denies: abdominal pain, nausea or vomiting : Denies: flank pain Musc: Denies: neck pain or back pain Skin/Breast: Denies: rash or pruritus Neuro: Reports: headache(s), numbness in extremities, weakness in extremities and Slurred speech present; Denies: vertigo Psych: Denies: anxiety Jeffrey/Lymph: Denies: enlarged lymph nodes PFSH ED PFSH: Medical History BMI 50.0-59.9, adult Chronic migraine with aura Depression Generalized anxiety disorder Panic disorder PCOS (polycystic ovarian syndrome) Sleep apnea, unspecified SVT (supraventricular tachycardia) Surgical History History of appendectomy (07/04/18) History of bladder surgery (1996) 1996 and 1994; Possibly just urethral History of cholecystectomy (01/29/17) History of drainage of abscess (2013) 2013 Left axillary region. Excision of sinus tract due to recurrent abscess formation. 2010 Left axillary region. Excision of sinus tract due to recurrent abscess formation. History of hysterectomy (~2017) Attributes: Left. Comments: ovary gone History of tonsillectomy and adenoidectomy (1993) S/P laparoscopic sleeve gastrectomy Status post laparoscopic sleeve gastrectomy Status post placement of implantable loop recorder Family History Mother Hypertension Meniere's disease Father Hypertension Hypercholesterolemia Grandfather Cancer Paternal; Lung Grandmother Cancer Maternal; Bone Hypercholesterolemia Maternal Meniere's disease Maternal Family/Other Meniere's disease Maternal Great Grandfather Denies family history of Anesthesia complication Bleeding disorder Social History Second hand smoke exposure: No Alcohol intake: never Adopted: No Caregiver/support person: Yes Lives independently: Yes Household members: spouse Housing: House Marital status: Highest education level completed: High School Graduate service: No Current occupational status: employed 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 Current occupational exposures/hazards: No Pets and animals: No History of recent travel: No Sexually active: Yes Current gender identity: Female Sunni/Episcopalian: Tenriism Special sunni needs: No Agree to transfusion: No Financial difficulty paying for basics: Decline to Answer NIH stroke score NIHSS: Level Of Consciousness - 1a: 0 Level Of Consciousness Questions - 1b: Both Correct Level Of Consciousness Commands - 1c: Both Correct Best Gaze - 2: Normal Visual Corona - 3: No Visual Loss Facial Palsy - 4: Normal Motor Arm Right - 5: No Drift Motor Arm Left - 5: Drift Motor Leg Right - 6: No Drift Motor Leg Left - 6: Drift Limb Ataxia - 7: Absent Sensory - 8: Mild To Moderate Loss Best Language - 9: Mild/Moderate Aphasia Dysarthia - 10: Mild/Moderate Dysarthia Extinction And Inattention - 11: 0 Score: Total Score: 5 Physical Exam Const: COMMON NORMALS: no acute distress, patient oriented x3, alert and well nourished EXAM LIMITATIONS: altered mental status (Mild) GENERAL APPEARANCE: cooperative ORIENTATION/CONSCIOUSNESS: Yes oriented to person, Yes oriented to place and Yes oriented to time HENMT: COMMON NORMALS: normocephalic and atraumatic HEAD & SCALP: normocephalic and atraumatic THROAT: posterior oropharynx normal OTHER: Cranial nerves II through XII intact. Tongue protrudes in the midline. Eye: COMMON NORMALS: Equal, round and reactive pupils present, EOMs intact bilaterally and conjunctivae normal CONJUNCTIVA: Yes conjunctivae normal PUPIL: Yes Equal, round and reactive pupils present Neck/C-Spine: COMMON NORMALS: full ROM, no lymphadenopathy, supple and no JVD Lymph: LYMPHATIC: no lymphadenopathy noted Chest: COMMONS NORMALS: normal inspection of the chest and normal palpation of entire chest wall Resp: COMMON NORMALS: normal respiratory effort, No retractions, No use of accessory muscles and clear to auscultation bilaterally AUSCULTATION: clear to auscultation bilaterally Cardio: COMMON NORMALS: no JVD, regular rate, regular rhythm and Peripheral pulses 2+ throughout RATE: regular rate RHYTHM: regular rhythm PERIPHERAL PULSES: Peripheral pulses 2+ throughout GI: COMMON NORMALS: Normal to inspection, nondistended, normoactive bowel sounds present, Soft to palpation and non-tender (Obese) PALPATION: Yes Soft to palpation : COMMON NORMALS: Yes no CVA tenderness BLADDER/KIDNEY EXAM: Yes no CVA tenderness Back/Pelvis: COMMON NORMALS: no CVA tenderness Extremity: COMMON NORMALS: normal to inspection and full ROM Neuro: COMMON NORMALS: patient oriented x3, CN's II-XII intact bilaterally, moves all extremities and deep tendon reflexes 2+ bilaterally SENSORIUM/ORIENTATION: Yes alert, Yes oriented to person, Yes oriented to place and Yes oriented to time SPEECH: expressive aphasia (Mild) SENSORY EXAM: Yes other (Mild tingling in the left upper and lower extremities.) MOTOR EXAM: Abnormal motor strength present (4+/5 in Lue; 4-/5 in LLE; 5/5 in rue/rle.) Psych: COMMON NORMALS: mental status grossly normal, Normal thought process present, cooperative, normal affect and speech normal SPEECH: Yes normal speech THOUGHT PROCESS: Normal thought process present Skin: COMMON NORMALS: no rashes or lesions noted GENERAL SKIN EXAM: no rashes or lesions noted Course ED course: 1040: Discussed with [facility] neurologist Dr. Juárez. He believes patient is having a hemiplegic migraine. He recommends Toradol for headache. However, patient states she cannot take oral NSAIDs due to her recent gastric bypass. Vital Signs: Vital signs: Vital Signs Temperature 97.9 F 12/27/20 09:26 Pulse Rate 60 12/27/20 10:38 Respiratory Rate 18 12/27/20 10:38 Blood Pressure 127/92 12/27/20 10:38 Pulse Oximetry 100 12/27/20 10:38 MDM - Neuro Symptoms/Deficit MDM Narrative: Medical decision making narrative: 1100: d/w dr. castaneda hospitalist. obs to med surg Differential Diagnosis: Neuro Differential Diagnosis: Likely cerebrovascular accident (Conversion disorder, hemiplegic migraine) Lab Data: Attestation: I reviewed the patient's lab results. Lab results narrative: elevated crp; 3+ ketone in urine; + uds with bzd, but pt is on valiuim Labs: Lab Results 12/27/20 12/27/20 12/27/20 Range/Units 09:14 09:14 09:14 WBC 7.2 (4.0-10.0) 10^3/ uL RBC 5.76 H (4.1-5.3) 10^6/u L Hgb 15.3 (11.5-15.3) g/dL Hct 47.3 H (37.0-47.0) % MCV 82.1 (81-99) fL MCH 26.6 L (28.0-34.0) pg MCHC 32.3 (30.0-36.0) g/dL RDW 14.4 (12.1-15.1) % Plt Count 232 (130-400) 10^3/c mm MPV 10.3 (7.4-10.4) fL Neut % (Auto) 52.3 % Lymph % (Auto) 37.3 % Door % (Auto) 8.1 % Eos % (Auto) 1.8 % Baso % (Auto) 0.4 % Neut # (Auto) 3.76 (1.8-7.7) 10^3/u L Lymph # (Auto) 2.7 (0.8-4.8) 10^3/u L Door # (Auto) 0.6 (0.2-0.9) 10^3/u L Eos # (Auto) 0.1 (0.0-0.8) 10^3/u L Baso # (Auto) 0.0 (0.0-0.1) 10^3/u L Nucleated RBC % (a uto) 0 % Nucleated RBCs # 0.0 /100WBC APTT 34.7 (23.9-36.7) SECO NDS Sodium 144 (136-145) mmol/L Potassium 3.7 (3.5-5.1) mmol/L Chloride 98 (98-107) mmol/L Carbon Dioxide 27 (22-29) mmol/L Anion Gap 22.7 H (5-19) BUN 6 (6-20) mg/dL Creatinine 0.6 (0.5-0.9) mg/dL GFR Calculation 115.9 (90-130) mL/min Glucose 107 (65-115) mg/dL Calculated Osmolal ity 296 H (285-295) mOsm/k g Calcium 9.5 (8.5-10.5) mg/dL Total Bilirubin 0.4 (0.15-1.2) mg/dL AST 30 (0-32) U/L ALT 29 (0-33) U/L Alkaline Phosphata se 140 H (35-105) IU/L C-Reactive Protein 32.0 H (0.0-4.9) mg/L Total Protein 6.8 (6.6-8.7) g/dL Albumin 3.9 (3.5-5.2) g/dL Globulin 2.9 (1.3-4.6) g/dL Urine Color (Yellow) Urine Appearance (CLEAR) Urine pH (5-7) Ur Specific Gravit y (1.005-1.030) Urine Protein (Negative) Urine Glucose (UA) (Normal) Urine Ketones (Negative) Urine Blood (Negative) Urine Nitrate (Negative) Urine Bilirubin (Negative) Urine Urobilinogen (Negative) mg/dL Ur Leukocyte Gayathri ase (Negative) Urine Opiates Scre en (Negative) ng/mL Ur Barbiturates Sc reen (Negative) ng/mL Ur Phencyclidine S crn (Negative) ng/mL Ur Amphetamines Sc reen (Negative) ng/mL U Benzodiazepines Scrn (Negative) ng/mL Urine Cocaine Scre en (Negative) ng/mL U Marijuana (THC) Screen (Negative) ng/mL 12/27/20 12/27/20 Range/Units 10:07 10:07 WBC (4.0-10.0) 10^3/ uL RBC (4.1-5.3) 10^6/u L Hgb (11.5-15.3) g/dL Hct (37.0-47.0) % MCV (81-99) fL MCH (28.0-34.0) pg MCHC (30.0-36.0) g/dL RDW (12.1-15.1) % Plt Count (130-400) 10^3/c mm MPV (7.4-10.4) fL Neut % (Auto) % Lymph % (Auto) % Door % (Auto) % Eos % (Auto) % Baso % (Auto) % Neut # (Auto) (1.8-7.7) 10^3/u L Lymph # (Auto) (0.8-4.8) 10^3/u L Door # (Auto) (0.2-0.9) 10^3/u L Eos # (Auto) (0.0-0.8) 10^3/u L Baso # (Auto) (0.0-0.1) 10^3/u L Nucleated RBC % (a uto) % Nucleated RBCs # /100WBC APTT (23.9-36.7) SECO NDS Sodium (136-145) mmol/L Potassium (3.5-5.1) mmol/L Chloride (98-107) mmol/L Carbon Dioxide (22-29) mmol/L Anion Gap (5-19) BUN (6-20) mg/dL Creatinine (0.5-0.9) mg/dL GFR Calculation (90-130) mL/min Glucose (65-115) mg/dL Calculated Osmolal ity (285-295) mOsm/k g Calcium (8.5-10.5) mg/dL Total Bilirubin (0.15-1.2) mg/dL AST (0-32) U/L ALT (0-33) U/L Alkaline Phosphata se (35-105) IU/L C-Reactive Protein (0.0-4.9) mg/L Total Protein (6.6-8.7) g/dL Albumin (3.5-5.2) g/dL Globulin (1.3-4.6) g/dL Urine Color Straw (Yellow) Urine Appearance Clear (CLEAR) Urine pH 6.5 (5-7) Ur Specific Gravit y 1.005 (1.005-1.030) Urine Protein Neg (Negative) Urine Glucose (UA) Norm (Normal) Urine Ketones 3+ H (Negative) Urine Blood Neg (Negative) Urine Nitrate Negative (Negative) Urine Bilirubin 1+ H (Negative) Urine Urobilinogen 1 H (Negative) mg/dL Ur Leukocyte Gayathri ase Negative (Negative) Urine Opiates Scre en Negative (Negative) ng/mL Ur Barbiturates Sc reen Negative (Negative) ng/mL Ur Phencyclidine S crn Negative (Negative) ng/mL Ur Amphetamines Sc reen Negative (Negative) ng/mL U Benzodiazepines Scrn Positive H (Negative) ng/mL Urine Cocaine Scre en Negative (Negative) ng/mL U Marijuana (THC) Screen Negative (Negative) ng/mL Imaging Data^: CXR: Attestation: I personally reviewed and interpreted this imaging study as follows: My impression: Portable chest x-ray appears normal. No acute changes. Radiologist's impression: Patient: Alma Abdullahi AUnit #: [id number]: 1985Acct#:[id number]/Sex: 34 / FADM Date: 12/27/20Loc: ERRoom/Bed:Attending Dr: Ordering Provider/Ordering MD: Jorge Sorenson MD Date of Service: 12/27/20 Procedure(s): XR chest 1V portable [id number] Accession Number(s): [id number] Report Number: [id number] PROCEDURE INFORMATION: Exam: XR Chest Exam date and time: 12/27/2020 9:29 AM Age: 34 years old Clinical indication: Other: Weakness; Patient HX: Left sided flaccidity dilated pupils slurred speech TECHNIQUE: Imaging protocol: XR of the chest. Views: 1 view. COMPARISON: CR XR chest 1V portable [id number] 11/18/2020 4:23 PM FINDINGS: Lungs: There is minimal linear atelectasis in the right base. Otherwise lungs are clear. Pleural spaces: Unremarkable. No pleural effusion. No pneumothorax. Heart/Mediastinum: Unremarkable. No cardiomegaly. Bones/joints: Unremarkable. XR/XR chest 1V portable [id number] IMPRESSION: No significant abnormality. Dictated By:Debi Colin By:Debi Colin Date/Time:12/27/[address]: Radiologist's impression: Patient: Alma Abdullahi AUnit #: [id number]: 1985Acct#:[id number]/Sex: 34 / FADM Date: 12/27/20Loc: ERRoom/Bed:Attending Dr: Ordering Provider/Ordering MD: Jorge Sorenson MD Date of Service: 12/27/20 Procedure(s): CT angio headneck* [id number] Accession Number(s): [id number] Report Number: [id number] PROCEDURE INFORMATION: Exam: CT Angiography Head With Contrast, Arteriography Exam date and time: 12/27/2020 9:28 AM Age: 34 years old Clinical indication: Weakness; Patient HX: Left sided flaccidity dilated pupils slurred speech; Additional info: Weakness, potential CVA TECHNIQUE: Imaging protocol: Computed tomography angiography of the head with contrast. Exam focused on the arteries. 3D rendering (Not supervised by radiologist): MIP and/or 3D reconstructed images were created by the technologist. Radiation optimization: All CT scans at this facility use at least one of these dose optimization techniques: automated exposure control; mA and/or kV adjustment per patient size (includes targeted exams where dose is matched to clinical indication); or iterative reconstruction. Contrast material: OMNI 350; Contrast volume: 95 ml; Contrast route: INTRAVENOUS (IV); COMPARISON: CT head wo con* [id number] 12/27/2020 9:24 AM RADIATION DOSE METRICS: Total DLP (mGy-cm): 2387.41 FINDINGS: ANTERIOR CIRCULATION: Right internal carotid artery: Unremarkable. Intracranial segment is patent with no significant stenosis. No aneurysm. Right middle cerebral artery: Unremarkable. No occlusion or significant stenosis. No aneurysm. Right anterior cerebral artery: Unremarkable. No occlusion or significant stenosis. No aneurysm. Left internal carotid artery: Unremarkable. Intracranial segment is patent with no significant stenosis. No aneurysm. Left middle cerebral artery: Unremarkable. No occlusion or significant stenosis. No aneurysm. Left anterior cerebral artery: Unremarkable. No occlusion or significant stenosis. No aneurysm. POSTERIOR CIRCULATION: Right vertebral artery: Unremarkable. No occlusion or significant stenosis. No aneurysm. Left vertebral artery: Unremarkable. No occlusion or significant stenosis. No aneurysm. Basilar artery: Unremarkable. No occlusion or significant stenosis. No aneurysm. Right posterior cerebral artery: Unremarkable. No occlusion or significant stenosis. No aneurysm. Left posterior cerebral artery: Unremarkable. No occlusion or significant stenosis. No aneurysm. Brain: No definite mass, mass effect, or midline shift. Cerebral ventricles: No ventriculomegaly. Bones/joints: Unremarkable. No acute fracture. Soft tissues: Unremarkable. IMPRESSION: No large vessel stenosis or occlusion. PROCEDURE INFORMATION: Exam: CT Angiography Neck With Contrast Exam date and time: 12/27/2020 9:28 AM Age: 34 years old Clinical indication: Weakness; Patient HX: Left sided flaccidity dilated pupils slurred speech; Additional info: Weakness, potential CVA TECHNIQUE: Imaging protocol: Computed tomography angiography of the neck with contrast. 3D rendering (Not supervised by radiologist): MIP and/or 3D reconstructed images were created by the technologist. Radiation optimization: All CT scans at this facility use at least one of these dose optimization techniques: automated exposure control; mA and/or kV adjustment per patient size (includes targeted exams where dose is matched to clinical indication); or iterative reconstruction. Contrast material: OMNI 350; Contrast volume: 95 ml; Contrast route: INTRAVENOUS (IV); COMPARISON: CT head wo con* [id number] 12/27/2020 9:24 AM RADIATION DOSE METRICS: Total DLP (mGy-cm): 2387.41 FINDINGS: Right common carotid artery: No stenosis. No dissection or occlusion. Right internal carotid artery: No stenosis of the extracranial segment. No dissection or occlusion. Right external carotid artery: No occlusion or stenosis of the origin. Left common carotid artery: No stenosis. No dissection or occlusion. Left internal carotid artery: No stenosis of the extracranial segment. No dissection or occlusion. Left external carotid artery: No occlusion or stenosis of the origin. Right vertebral artery: No stenosis. No dissection or occlusion. Left vertebral artery: No stenosis. No dissection or occlusion. Soft tissues: Normal. No significant soft tissue swelling. Bones/joints: No acute fracture. CT/CT angio headneck* [id number] IMPRESSION: No stenosis or occlusion. REFERENCES: NASCET CRITERIA. The degree of internal carotid artery stenosis is based on NASCET criteria. Normal is no stenosis. Mild is less than 50% stenosis. Moderate is 50-69% stenosis. Severe is 70% to 99% stenosis. Total occlusion is no detectable patent lumen. Radiation Dose CTDIVOL = (mGy): DLP = 2387.41~2387.41 (mGy-cm) Dictated By:Debi Colin By:Debi Colin Date/Time:12/27/[address] Head: Radiologist's impression: Patient: Alma Abdullahi AUnit #: [id number]: [id number]#:[id number]/Sex: 34 / FADM Date: 12/27/20Loc: ERRoom/Bed:Attending Dr: Ordering Provider/Ordering MD: Jorge Sorenson MD Date of Service: 12/27/20 Procedure(s): CT head wo con* [id number] Accession Number(s): [id number] Report Number: [id number] PROCEDURE INFORMATION: Exam: CT Head Without Contrast Exam date and time: 12/27/2020 9:29 AM Age: 34 years old Clinical indication: Other: Weakness; Patient HX: Left sided flaccidity dilated pupils slurred speech; Additional info: Weakness, suspected CVA TECHNIQUE: Imaging protocol: Computed tomography of the head without contrast. Radiation optimization: All CT scans at this facility use at least one of these dose optimization techniques: automated exposure control; mA and/or kV adjustment per patient size (includes targeted exams where dose is matched to clinical indication); or iterative reconstruction. Other technique: STROKE PROTOCOL was implemented. COMPARISON: CT head wo con* [id number] 11/05/2018 8:15 PM RADIATION DOSE METRICS: Total DLP (mGy-cm): 924.08 FINDINGS: Brain: Normal. No hemorrhage. Unremarkable white matter. No mass effect. Cerebral ventricles: No ventriculomegaly. Paranasal sinuses: Visualized sinuses are unremarkable. No fluid levels. Mastoid air cells: Visualized mastoid air cells are well aerated. Bones/joints: Unremarkable. No acute fracture. Soft tissues: Unremarkable. CT/CT head wo con* [id number] IMPRESSION: No acute intracranial abnormality. ASSESSMENT: ASPECTS ([place] Stroke Program Early CT Score) is 10. Radiation Dose CTDIVOL = (mGy): DLP = 924.08 (mGy-cm) Dictated By:Debi Colin By:Debi Colin Date/Time:12/27/20 0958 EKG Data^: EKG 1: EKG interpretation date: 12/27/20 EKG interpretation time: 09:45 Prior EKG tracings: not available for review Interpretation: Normal sinus rhythm heart rate 67. Normal axis. Normal [place] interval, normal P wave, normal T waves, normal QRS, normal ST segment. Normal axis. Impression normal EKG. Discharge Plan Discharge Patient Disposition: Placed in Observation Clinical Impression: Headache, hemiplegic migraine, intractable Qualifiers: Status migrainosus presence: without status migrainosus Qualified Code(s): G43.419 - Hemiplegic migraine, intractable, without status migrainosus Coding Level of Care Code ED Ship Wirer for g Fwd Exam Comprehensive
[2020-12-27 09:53] LABS: Basophils % 0.4 %; Eosinophils # 0.1 10^3/uL (0.0-0.8); Eosinophils % 1.8 %; Hematocrit 47.3 % (37.0-47.0); Hemoglobin 15.3 g/dL (11.5-15.3); Lymphocytes # 2.7 10^3/uL (0.8-4.8); Lymphocytes % 37.3 %; Mean Corpuscular HGB Conc 32.3 g/dL (30.0-36.0); Mean Corpuscular Hemoglobin 26.6 pg (28.0-34.0); Mean Corpuscular Volume 82.1 fL (81-99); Mean Platelet Volume 10.3 fL (7.4-10.4); Monocytes # 0.6 10^3/uL (0.2-0.9); Monocytes % 8.1 %; Neutrophils # 3.76 10^3/uL (1.8-7.7); Neutrophils % 52.3 %; Nucleated Red Blood Cells % 0 %; Platelet Count 232 10^3/cmm (130-400); Red Blood Count 5.76 10^6/uL (4.1-5.3); Red Cell Distribution Width 14.4 % (12.1-15.1); White Blood Count 7.2 10^3/uL (4.0-10.0)
[2020-12-27 10:10] LABS: Partial Thromboplastin Time 34.7 SECONDS (23.9-36.7)
[2020-12-27 10:17] LABS: Add Urine Microscopic? NO; Charge for UA Resulting for Rev
[2020-12-27 10:19] LABS: Alanine Aminotransferase 29 U/L (0-33); Albumin Level 3.9 g/dL (3.5-5.2); Alkaline Phosphatase 140 IU/L (35-105); Aspartate Amino Transferase 30 U/L (0-32); Blood Urea Nitrogen 6 mg/dL (6-20); Calcium 9.5 mg/dL (8.5-10.5); Carbon Dioxide 27 mmol/L (22-29); Chloride 98 mmol/L (98-107); Globulin 2.9 g/dL (1.3-4.6); Glomerular Filtration Rate 115.9 mL/min (90-130); Glucose 107 mg/dL (65-115); Osmolality Calculated 296 mOsm/kg (285-295); Sodium 144 mmol/L (136-145); Total Bilirubin 0.4 mg/dL (0.15-1.2); Total Protein 6.8 g/dL (6.6-8.7)
[2020-12-27 10:20] LABS: Bilirubin Urine 1+ (Negative); Blood Urine Neg (Negative); Glucose Urine UA Norm (Normal); Ketones Urine 3+ (Negative); Leukocyte Esterase Urine Negative (Negative); Nitrate Urine Negative (Negative); Protein Urine Neg (Negative); Specific Gravity, Urine 1.005 (1.005-1.030); Urine Appearance Clear (CLEAR); Urine Color Straw (Yellow); Urobilinogen Urine 1 mg/dL (Negative); pH Urine 6.5 (5-7)
[2020-12-27 10:29] LABS: Amphetamines Screen Urine Negative (Negative); Barbiturates Screen Urine Negative (Negative); Benzodiazepines Screen Urine Positive (Negative); Cocaine Screen Urine Negative (Negative); Opiate Screen Urine Negative (Negative); PCP Screen Urine Negative (Negative); THC Screen Urine Negative (Negative)
[2020-12-27 10:31] LABS: Anion Gap 22.7 (5-19); Potassium 3.7 mmol/L (3.5-5.1)
--- NOTE | 2020-12-27 11:20 | ED_ITS ---
HPI - Neuro Symptoms/Deficit General: Chief Complaint: Neuro Symptoms/Deficit Stated Complaint: STROKE LIKE SYMPTOMS Time Seen by Provider: 12/27/20 09:27 Source: patient, family (mother) and EMS Mode of arrival: EMS Limitations: other (Mild slurred speech.) History of Present Illness: Location: speech, left arm and left leg History of same: Yes (Similar episode in the past but not as severe.) Severity: severe Quality: weak, tingling and constant Relieving factors: none Exacerbating factors: none On Anticoagulants: No Treatments Prior to Arrival: none PFSH ED PFSH: Medical History BMI 50.0-59.9, adult Chronic migraine with aura Depression Generalized anxiety disorder Panic disorder PCOS (polycystic ovarian syndrome) Sleep apnea, unspecified SVT (supraventricular tachycardia) Surgical History History of appendectomy (07/04/18) History of bladder surgery (1996) 1996 and 1994; Possibly just urethral History of cholecystectomy (01/29/17) History of drainage of abscess (2013) 2013 Left axillary region. Excision of sinus tract due to recurrent abscess formation. 2010 Left axillary region. Excision of sinus tract due to recurrent abscess formation. History of hysterectomy (~2017) Attributes: Left. Comments: ovary gone History of tonsillectomy and adenoidectomy (1993) S/P laparoscopic sleeve gastrectomy Status post laparoscopic sleeve gastrectomy Status post placement of implantable loop recorder Family History Mother Hypertension Meniere's disease Father Hypertension Hypercholesterolemia Grandfather Cancer Paternal; Lung Grandmother Cancer Maternal; Bone Hypercholesterolemia Maternal Meniere's disease Maternal Family/Other Meniere's disease Maternal Great Grandfather Denies family history of Anesthesia complication Bleeding disorder Social History Second hand smoke exposure: No Alcohol intake: never Adopted: No Caregiver/support person: Yes Lives independently: Yes Household members: spouse Housing: House Marital status: Highest education level completed: High School Graduate service: No Current occupational status: employed 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 Current occupational exposures/hazards: No Pets and animals: No History of recent travel: No Sexually active: Yes Current gender identity: Female Sunni/Restorationist: Scientology Special sunni needs: No Agree to transfusion: No Financial difficulty paying for basics: Decline to Answer Course Vital Signs: Vital signs: Vital Signs Temperature 97.9 F 12/27/20 09:26 Pulse Rate 60 12/27/20 10:38 Respiratory Rate 18 12/27/20 10:38 Blood Pressure 127/92 12/27/20 10:38 Pulse Oximetry 100 12/27/20 10:38 MDM - Neuro Symptoms/Deficit MDM Narrative: Medical decision making narrative: 1155: Case discussed with her gastric bypass surgeon Dr. Hernández. He requested the Protonix 40 mg IV be given twice a day. Lab Data: Labs: Lab Results 12/27/20 12/27/20 12/27/20 Range/Units 09:14 09:14 09:14 WBC 7.2 (4.0-10.0) 10^3/ uL RBC 5.76 H (4.1-5.3) 10^6/u L Hgb 15.3 (11.5-15.3) g/dL Hct 47.3 H (37.0-47.0) % MCV 82.1 (81-99) fL MCH 26.6 L (28.0-34.0) pg MCHC 32.3 (30.0-36.0) g/dL RDW 14.4 (12.1-15.1) % Plt Count 232 (130-400) 10^3/c mm MPV 10.3 (7.4-10.4) fL Neut % (Auto) 52.3 % Lymph % (Auto) 37.3 % [place] % (Auto) 8.1 % Eos % (Auto) 1.8 % Baso % (Auto) 0.4 % Neut # (Auto) 3.76 (1.8-7.7) 10^3/u L Lymph # (Auto) 2.7 (0.8-4.8) 10^3/u L [place] # (Auto) 0.6 (0.2-0.9) 10^3/u L Eos # (Auto) 0.1 (0.0-0.8) 10^3/u L Baso # (Auto) 0.0 (0.0-0.1) 10^3/u L Nucleated RBC % (a uto) 0 % Nucleated RBCs # 0.0 /100WBC APTT 34.7 (23.9-36.7) SECO NDS Sodium 144 (136-145) mmol/L Potassium 3.7 (3.5-5.1) mmol/L Chloride 98 (98-107) mmol/L Carbon Dioxide 27 (22-29) mmol/L Anion Gap 22.7 H (5-19) BUN 6 (6-20) mg/dL Creatinine 0.6 (0.5-0.9) mg/dL GFR Calculation 115.9 (90-130) mL/min Glucose 107 (65-115) mg/dL Calculated Osmolal ity 296 H (285-295) mOsm/k g Calcium 9.5 (8.5-10.5) mg/dL Total Bilirubin 0.4 (0.15-1.2) mg/dL AST 30 (0-32) U/L ALT 29 (0-33) U/L Alkaline Phosphata se 140 H (35-105) IU/L C-Reactive Protein 32.0 H (0.0-4.9) mg/L Total Protein 6.8 (6.6-8.7) g/dL Albumin 3.9 (3.5-5.2) g/dL Globulin 2.9 (1.3-4.6) g/dL Urine Color (Yellow) Urine Appearance (CLEAR) Urine pH (5-7) Ur Specific Gravit y (1.005-1.030) Urine Protein (Negative) Urine Glucose (UA) (Normal) Urine Ketones (Negative) Urine Blood (Negative) Urine Nitrate (Negative) Urine Bilirubin (Negative) Urine Urobilinogen (Negative) mg/dL Ur Leukocyte Gayathri ase (Negative) Urine Opiates Scre en (Negative) ng/mL Ur Barbiturates Sc reen (Negative) ng/mL Ur Phencyclidine S crn (Negative) ng/mL Ur Amphetamines Sc reen (Negative) ng/mL U Benzodiazepines Scrn (Negative) ng/mL Urine Cocaine Scre en (Negative) ng/mL U Marijuana (THC) Screen (Negative) ng/mL 12/27/20 12/27/20 Range/Units 10:07 10:07 WBC (4.0-10.0) 10^3/ uL RBC (4.1-5.3) 10^6/u L Hgb (11.5-15.3) g/dL Hct (37.0-47.0) % MCV (81-99) fL MCH (28.0-34.0) pg MCHC (30.0-36.0) g/dL RDW (12.1-15.1) % Plt Count (130-400) 10^3/c mm MPV (7.4-10.4) fL Neut % (Auto) % Lymph % (Auto) % [place] % (Auto) % Eos % (Auto) % Baso % (Auto) % Neut # (Auto) (1.8-7.7) 10^3/u L Lymph # (Auto) (0.8-4.8) 10^3/u L [place] # (Auto) (0.2-0.9) 10^3/u L Eos # (Auto) (0.0-0.8) 10^3/u L Baso # (Auto) (0.0-0.1) 10^3/u L Nucleated RBC % (a uto) % Nucleated RBCs # /100WBC APTT (23.9-36.7) SECO NDS Sodium (136-145) mmol/L Potassium (3.5-5.1) mmol/L Chloride (98-107) mmol/L Carbon Dioxide (22-29) mmol/L Anion Gap (5-19) BUN (6-20) mg/dL Creatinine (0.5-0.9) mg/dL GFR Calculation (90-130) mL/min Glucose (65-115) mg/dL Calculated Osmolal ity (285-295) mOsm/k g Calcium (8.5-10.5) mg/dL Total Bilirubin (0.15-1.2) mg/dL AST (0-32) U/L ALT (0-33) U/L Alkaline Phosphata se (35-105) IU/L C-Reactive Protein (0.0-4.9) mg/L Total Protein (6.6-8.7) g/dL Albumin (3.5-5.2) g/dL Globulin (1.3-4.6) g/dL Urine Color Straw (Yellow) Urine Appearance Clear (CLEAR) Urine pH 6.5 (5-7) Ur Specific Gravit y 1.005 (1.005-1.030) Urine Protein Neg (Negative) Urine Glucose (UA) Norm (Normal) Urine Ketones 3+ H (Negative) Urine Blood Neg (Negative) Urine Nitrate Negative (Negative) Urine Bilirubin 1+ H (Negative) Urine Urobilinogen 1 H (Negative) mg/dL Ur Leukocyte Gayathri ase Negative (Negative) Urine Opiates Scre en Negative (Negative) ng/mL Ur Barbiturates Sc reen Negative (Negative) ng/mL Ur Phencyclidine S crn Negative (Negative) ng/mL Ur Amphetamines Sc reen Negative (Negative) ng/mL U Benzodiazepines Scrn Positive H (Negative) ng/mL Urine Cocaine Scre en Negative (Negative) ng/mL U Marijuana (THC) Screen Negative (Negative) ng/mL Discharge Plan Discharge Patient Disposition: Placed in Observation Admit Provider: Kristal Blandon Clinical Impression: Headache, hemiplegic migraine, intractable Qualifiers: Status migrainosus presence: without status migrainosus Qualified Code(s): G43.419 - Hemiplegic migraine, intractable, without status migrainosus Coding Level of Care Code ED Stenotype Machine Operator for Nicolas Moreno
[2020-12-27] MEDS: ketorolac 30 mg/mL INJ IVP (12:18)
[2020-12-27] MEDS: promethazine 25 mg/mL SDV 1 mL IM (12:19)
[2020-12-27] MEDS: pantoprazole 40 mg SDV IVP ×2 (12:19→19:31)
[2020-12-27] MEDS: sodium chloride 0.9% 500 ML 1000 ML IV (12:23)
--- NOTE | 2020-12-27 17:15 | P.HP_ITS ---
Providers/Chief Complaint Admitting Physician: Kristal Blandon MD Primary Care Provider: Rosalba Maldonado, MOP WORKER-C Chief Complaint: STROKE LIKE SYMPTOMS History of Present Illness Alma Abdullahi is a 34 year old female with past medical history of hypertension, hemiplegic migraine, type 2 diabetes mellitus, supraventricular tachycardia, recent history of lap band surgery in October 2020, morbid obesity presented to the ER today with strokelike symptoms. As per the patient she was fine when she went to bed last night but she woke up at 3 AM because she was thirsty has had some nausea. Patient drank some water and went back to bed. Only thing she remembers after that is waking up coming out of ambulance to the ER. As per patient's father because patient did not wake up at her usual time of the day they went with checkup on her in her room and found her in PowerChart state. Did not notice any bowel or bladder accidents, frothing from the mouth or tongue bite. On waking up in the ER patient had slurred speech and was unable to move the left side of her body including upper arm and leg. On review of the chart it seems patient has a history of passing out in the past for which she was worked up with cardiology and pheochromocytoma was ruled out and was found to have SVT on loop recorder. Patient has family history of seizure in father. Patient had an NIH score of 5, stroke work-up was done in the ER as below. Patient's case was discussed with Dr. Juárez from [facility] who believes patient has hemiplegic migraine and recommended Toradol for headache and MRI brain tomorrow morning. On examination patient is lying comfortably in bed with heart rate of 62 bpm, saturation 97% on room air, no further slurring of speech but unable to move the left side of her body. Patient states her strength on the left side is improving and now she is able to move her left fingers and toes. Review of Systems General: Reports: 10 or more systems reviewed and unremarkable except in HPI and below Const: Denies: fever(s), chills, body aches, change in appetite, change in weight, malaise, night sweats, diaphoresis, change in sleep pattern, daytime sleepiness or snoring Eyes: Denies: change in vision, blurry vision, photophobia, eye discomfort or eye discharge ENMT: Denies: throat pain, enlarged tonsils, hoarseness, mouth pain, oral sores, dry mouth, tinnitus, nasal congestion or post nasal drip Card: Denies: chest pain, palpitations, irregular heart rhythm, edema, swelling of feet/ankles, lightheadedness, syncope, pre-syncope, dyspnea on exertion, orthopnea, leg pain with exertion or acrocyanosis Resp: Denies: dyspnea, productive cough, non-productive cough, wheezing, st ridor, pain on inspiration, change in phlegm color, hemoptysis or chest congestion GI: Denies: abdominal pain, nausea, vomiting, hematemesis, coffee ground emesis, dysphagia, heartburn, diarrhea, constipation, bloating, GI cramping, change in bowel habits, pain on defecation, hematochezia or melena : Denies: flank pain, dysuria, urinary frequency, urinary urgency, urinary hesitancy, nocturia or hematuria Musc: Denies: neck pain, back pain, extremity pain, joint pain, joint swelling, joint redness, joint stiffness or limited range of motion Neuro: Denies: headache(s), numbness in extremities, weakness in extremities, sensory changes, lack of coordination, difficulty walking, frequent falls, dizziness, vertigo, confusion, Slurred speech present, difficulty communicating thoughts or seizure-like activity Psych: Denies: anxiety, depression, mood swings, panic attacks, hopelessness or irritability Endo: Denies: polyuria, polydipsia, tired all the time, cold intolerance, excessive sweating, flushing or heat intolerance Jeffrey/Lymph: Denies: easy bruising or easy bleeding All/Imm: Denies: tongue swelling, facial swelling or acute wheezing Medications/Allergies Home Medications Medication Instructions Recorded Confirmed Last Taken Type promethazine 25 mg tablet 25 mg PO Q8H PRN #30 tab 09/25/19 12/27/20 11/16/20 Rx clonidine HCl 0.1 mg tablet 0.1 mg PO BID PRN #60 tab 08/14/20 12/27/20 Unknown Rx venlafaxine 100 mg tablet 100 mg PO TID #90 tab 11/04/20 12/27/20 12/25/20 Rx baclofen 20 mg PO TID PRN 11/16/20 12/27/20 11/16/20 History hydrocodone-acetaminophen 1 tab PO Q6H PRN #28 tab 11/19/20 12/27/20 Unknown Rx pantoprazole [Protonix] 40 mg PO DAILY #30 tab 11/19/20 12/27/20 Unknown Rx scopolamine base [Transderm-Scop] 1 patch TRANSDERMAL Q3D PRN #4 ea 11/19/20 12/27/20 Unknown Rx diazepam 5 mg tablet 5 mg PO BID PRN #60 tab 12/25/20 12/27/20 Unknown Rx B-12 Patch 1 ea TRANSDERMAL Q12H 12/27/20 12/27/20 12/25/20 History Iron Plus Patch 1 ea TRANSDERMAL Q12H 12/27/20 12/27/20 12/25/20 History Multivitamin Patch 1 patch TRANSDERMAL Q12H 12/27/20 12/27/20 12/24/20 History Vitamin D3 Plus Calcium Patch 1 ea TRANSDERMAL Q12H 12/27/20 12/27/20 12/25/20 History cetirizine [Allergy Relief 10 mg PO DAILY PRN 12/27/20 12/27/20 12/26/20 History (cetirizine)] doxepin 10 mg PO BEDTIME 12/27/20 12/27/20 12/25/20 History fremanezumab-vfrm [Ajovy 225 mg SUBCUT Q30D 12/27/20 12/27/20 12/08/20 History Autoinjector] Allergies Allergy/AdvReac Type Severity Reaction Status Date / Time metoclopramide [From Reglan] Allergy Unknown Verified 12/09/20 14:47 PFSH Acute PFSH: Medical History (Updated 12/27/20 @ 17:23 by Waldo Neri MD) BMI 50.0-59.9, adult Chronic migraine with aura COVID-19 Depression Diabetes mellitus with hyperglycemia, without long-term current use of insulin Encounter for pre-bariatric surgery counseling and education Essential hypertension Generalized anxiety disorder Headache, hemiplegic migraine, intractable Painful respiratory movement Panic disorder PCOS (polycystic ovarian syndrome) Pre-op evaluation Resistant hypertension Sleep apnea, unspecified SVT (supraventricular tachycardia) Surgical History History of appendectomy (07/04/18) History of bladder surgery (1996) 1996 and 1994; Possibly just urethral History of cholecystectomy (01/29/17) History of drainage of abscess (2013) 2013 Left axillary region. Excision of sinus tract due to recurrent abscess formation. 2010 Left axillary region. Excision of sinus tract due to recurrent abscess formation. History of hysterectomy (~2017) Attributes: Left. Comments: ovary gone History of tonsillectomy and adenoidectomy (1993) S/P laparoscopic sleeve gastrectomy Status post laparoscopic sleeve gastrectomy Status post placement of implantable loop recorder Family History Mother Hypertension Meniere's disease Father Hypertension Hypercholesterolemia Grandfather Cancer Paternal; Lung Grandmother Cancer Maternal; Bone Hypercholesterolemia Maternal Meniere's disease Maternal Family/Other Meniere's disease Maternal Great Grandfather Denies family history of Anesthesia complication Bleeding disorder Social History Second hand smoke exposure: No Alcohol intake: never Adopted: No Caregiver/support person: Yes Lives independently: Yes Household members: spouse Housing: House Marital status: Highest education level completed: High School Graduate service: No Current occupational status: employed 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 Current occupational exposures/hazards: No Pets and animals: No History of recent travel: No Sexually active: Yes Current gender identity: Female Sunni/Denominational: Latter Day Special sunni needs: No Agree to transfusion: No Financial difficulty paying for basics: Decline to Answer Vitals/I&O/Wt Last Vital Signs Temp 97.5 F L 12/27/20 15:19 Pulse 62 12/27/20 15:19 Resp 14 12/27/20 15:19 BP 107/75 12/27/20 15:19 Pulse Ox 97 12/27/20 15:19 Weight last 48 hrs Weight 108.862 kg Physical Exam Narrative: EXAM NARRATIVE: General: No acute distress, AO x3 HEENT: PERRLA, pupils bilaterally equal and reactive Chest: Normal vesicular breath sounds, no added sounds, equal good air entry bilaterally CVS: S1-S2 regular, no murmurs, no tachycardia, no gallops, no rubs Abdomen: Soft, nontender, no organomegaly, bowel sounds present Neuro: Decreased power in left arm and legs, power 5 x 5 right arm and leg, power 2 x 5 left leg, no facial deformity, tongue central, pupils bilaterally equal and reactive, no slurred speech Neuro: COMMON NORMALS: patient oriented x3 and CN's II-XII intact bilaterally MENINGEAL SIGNS: Yes no meningeal signs and Yes nuccal rigidity SPEECH: speech normal Data : 12/27/20 09:14 12/27/20 09:14 A&P Assessment and plan (1) Stroke-like symptoms: Status: Acute (2) Hemiplegic migraine, intractable, without status migrainosus: Status: Acute (3) Diabetes mellitus with hyperglycemia, without long-term current use of insulin: Status: Chronic Qualifiers: Diabetes mellitus type: type 2 Qualified Code(s): E11.65 - Type 2 diabetes mellitus with hyperglycemia (4) Essential hypertension: Status: Chronic (5) SVT (supraventricular tachycardia): Status: Inactive Additional A&P Information 34-year-old female with past medical history of hemiplegic migraine, recent history of lap band surgery, history of hypertension, diabetes mellitus, history of passing out in the past for which pheochromocytoma was ruled out presented to the ER today after found at home passed out following which she was found to have left-sided hemiplegia and slurred speech. Stroke-like symptoms: As per the ER physician conversation with the neurologist at [facility] the concern for hemiplegic migraine a stroke. Telemetry, admit under observation. Echocardiogram, carotid Dopplers. MRi head with and without contrast, MRA head and neck Given the young age and recent lab and surgery will have to rule out coagulopathy. Check protein C, protein S, lupus inhibitor anticoagulant, antithrombin 3 activity, factor V Leyden mutation, JAI profile. Check vitamin B12, folate levels. Cannot rule out seizures. Patient has a history of seizure in father. Check prolactin. Seizure precautions. Discussed with Dr. Aranda who is the patient's outpatient surgeon. Can start patient on Plavix and statin. It is okay to start patient on aspirin if stroke is confirmed. Check HbA1c, lipid panel. Hypertension: Permissive hypertension allowed. We will treat if systolic blood pressures raise over 180 mmHg. PT/OT evaluation, speech evaluation. Continue other chronic medications including B12 patch, iron patch, multivitamin patch, vitamin D3 patch. Cardiac diet. Lovenox 40 mg subcu daily. Full code. Attestations Medical Necessity Statement*: Admission for less than 2 midnights for possible stroke. Time Spent in Patient Care: Greater than 35 minutes (>than 50% of time spent in counselling and/or direct pt care on unit) . Coding Level of Care Code Acute Harnessmaker Apprentice for Nicolas Moreno Diagnoses Stroke-like symptoms R29.90 Hemiplegic migraine, intractable, without status migrainosus G43.419 Diabetes mellitus with hyperglycemia, without long-term current use of insulin E11.65 Diabetes mellitus type: type 2 Essential hypertension I10 SVT (supraventricular tachycardia) I47.1
[2020-12-27] MEDS: sodium chloride 0.9% 1,000 ML 50 ML IV (17:41)
[2020-12-27 19:05] LABS: Iron 35 ug/dL (37-145); Total Iron Binding Capacity 205 mcg/dl; Unsaturated Iron Binding 170 ug/dL (112-347)
[2020-12-27 19:20] LABS: Procalcitonin 0.02 ng/mL (0-0.5); Vitamin B12 1318 pg/mL (232-1245)
[2020-12-27] MEDS: clopidogrel 75 mg Tablet PO (19:28)
[2020-12-27 19:29] LABS: Estmated Average Glucose 131; Folate Level 8.6 ng/mL (4.8-37.3); Hemoglobin A1C 6.2 % (4.0-6.0)
[2020-12-27] MEDS: enoxaparin 40 mg/0.4 mL Syringe SUBCUT (19:38)
[2020-12-27 19:43] LABS: Prolactin 9.11 ng/mL (4.8-23.3)
[2020-12-27] MEDS: atorvastatin 40 mg Tablet 80 MG PO (20:51)
[2020-12-28 03:52] VITALS: BP 106/77; PULSE 61; RESP 16; TEMP 36.9; O2SAT 97
[2020-12-28] MEDS: pantoprazole 40 mg SDV IVP ×2 (05:38→18:23)
[2020-12-28 07:06] LABS: Basophils % 0.3 %; Eosinophils # 0.2 10^3/uL (0.0-0.8); Eosinophils % 3.5 %; Hematocrit 43.2 % (37.0-47.0); Hemoglobin 13.5 g/dL (11.5-15.3); Lymphocytes # 2.4 10^3/uL (0.8-4.8); Lymphocytes % 37.1 %; Mean Corpuscular HGB Conc 31.3 g/dL (30.0-36.0); Mean Corpuscular Hemoglobin 26.4 pg (28.0-34.0); Mean Corpuscular Volume 84.4 fL (81-99); Mean Platelet Volume 10.1 fL (7.4-10.4); Monocytes # 0.5 10^3/uL (0.2-0.9); Monocytes % 7.9 %; Neutrophils # 3.34 10^3/uL (1.8-7.7); Nucleated Red Blood Cells % 0 %; Platelet Count 198 10^3/cmm (130-400); Red Blood Count 5.12 10^6/uL (4.1-5.3); Red Cell Distribution Width 14.6 % (12.1-15.1); White Blood Count 6.6 10^3/uL (4.0-10.0)
[2020-12-28 07:24] VITALS: BP 119/82; PULSE 67; RESP 18; TEMP 36.7; O2SAT 99
[2020-12-28 07:28] LABS: Alanine Aminotransferase 23 U/L (0-33); Albumin Level 3.3 g/dL (3.5-5.2); Alkaline Phosphatase 115 IU/L (35-105); Aspartate Amino Transferase 22 U/L (0-32); Blood Urea Nitrogen 4 mg/dL (6-20); Calcium 8.7 mg/dL (8.5-10.5); Carbon Dioxide 26 mmol/L (22-29); Chloride 101 mmol/L (98-107); Chol HDL Ratio 5.33 mg/dL (0.0-4.40); Cholesterol 160 mg/dL (0-200); Creatine Phosphokinase 22 U/L (26-192); Ferritin 280 ng/mL (15-150); Globulin 2.9 g/dL (1.3-4.6); Glomerular Filtration Rate 115.9 mL/min (90-130); Glucose 100 mg/dL (65-115); HDL Cholesterol 30 mg/dL (60-100); LDL Cholesterol Calculated 92 mg/dL (50-129); Magnesium 1.8 mg/dL (1.7-2.3); Osmolality Calculated 291 mOsm/kg (285-295); Phosphorus 2.7 mg/dL (2.5-4.5); Sodium 142 mmol/L (136-145); Total Bilirubin 0.4 mg/dL (0.15-1.2); Total Protein 6.2 g/dL (6.6-8.7); Triglycerides 191 mg/dL (0-150); VLDL Cholestrol Calculation 38 mg/dL (0-30)
[2020-12-28] MEDS: clopidogrel 75 mg Tablet PO (08:56)
[2020-12-28] MEDS: ondansetron 2 mg/ML SDV 2 mL 4 MG IVP (09:29)
[2020-12-28 11:49] VITALS: BP 100/70; PULSE 88; RESP 17; TEMP 36.7; O2SAT 98
--- NOTE | 2020-12-28 12:20 | P.PN_ITS ---
Subjective Subjective: Interval history: Patient was seen and examined this morning she continues to have left-sided weakness, though it has slightly improved since yesterday, she is also complaining of loss of bladder control. Vitals/I&O/Wt Last Vital Signs Temp 98.0 F 12/28/20 11:49 Pulse 88 12/28/20 11:49 Resp 17 12/28/20 11:49 BP 100/70 12/28/20 11:49 Pulse Ox 98 12/28/20 11:49 12/27/20 12/28/20 12/28/20 22:59 06:59 14:59 Intake Total 240 / 240 50 / 290 120 / 120 Balance 240 / 240 50 / 290 120 / 120 Weight last 48 hrs Weight 107.547 kg Weight 108.862 kg Physical Exam Const: COMMON NORMALS: patient oriented x3 HENMT: COMMON NORMALS: normocephalic and atraumatic HEAD & SCALP: normocephalic and atraumatic Chest: CHEST: Yes Symmetrical chest wall rise Resp: COMMON NORMALS: clear to auscultation bilaterally EFFORT & INSPECTION: Yes symmetric chest movement AUSCULTATION: clear to auscultation bilaterally Cardio: COMMON NORMALS: regular rate, regular rhythm, S1 normal heart sound present, S2 normal heart sound present, No gallops present (Cardio), No murmurs present (Cardio), No rub (Cardio) and Peripheral pulses 2+ throughout RATE: regular rate RHYTHM: regular rhythm HEART SOUNDS: S1 normal heart sound present and S2 normal heart sound present PERIPHERAL PULSES: Peripheral pulses 2+ throughout GI: COMMON NORMALS: Normal to inspection, nondistended, normoactive bowel sounds present, Soft to palpation, non-tender, No hepatosplenomegaly present and no masses AUSCULTATION: Yes normoactive bowel sounds PALPATION: Yes Soft to palpation and Yes No hepatosplenomegaly present RECTAL EXAM: deferred Extremity: COMMON NORMALS: no clubbing, cyanosis or edema and no pedal edema Neuro: COMMON NORMALS: patient oriented x3 OTHER: Left-sided weakness, 2/5 Power in both upper and lower extremity, with decreased sensation to touch and pain,Loss of bladder control, no BM so far . Data : 12/28/20 06:47 12/28/20 06:47 A&P Assessment and plan (1) Stroke-like symptoms: Status: Acute (2) Hemiplegic migraine, intractable, without status migrainosus: Status: Acute (3) Diabetes mellitus with hyperglycemia, without long-term current use of insulin: Status: Chronic Qualifiers: Diabetes mellitus type: type 2 Qualified Code(s): E11.65 - Type 2 diabetes mellitus with hyperglycemia (4) Essential hypertension: Status: Chronic (5) SVT (supraventricular tachycardia): Status: Inactive Additional A&P Information 34-year-old female with past medical history of hemiplegic migraine, recent history of lap band surgery, history of hypertension, diabetes mellitus, history of passing out in the past for which pheochromocytoma was ruled out presented to the ER today after found at home passed out following which she was found to have left-sided hemiplegia and slurred speech. Stroke-like symptoms: As per the ER physician conversation with the neurologist at [facility] the concern for hemiplegic migraine stroke. Telemetry, admit under observation. Echocardiogram, carotid Dopplers. MRi head with and without contrast, MRA head and neck Given the young age and recent lab and surgery will have to rule out coagulopathy. Check protein C, protein S, lupus inhibitor anticoagulant, antithrombin 3 activity, factor V Leyden mutation, JAI profile. Check vitamin B12, folate levels. Cannot rule out seizures. Patient has a history of seizure in father. Check prolactin. Seizure precautions. History of SVT: Follow records from Dr. Mclaughlin. Discussed with Dr. Aranda who is the patient's outpatient surgeon. Can start patient on Plavix and statin. It is okay to start patient on aspirin if stroke is confirmed. Check HbA1c, lipid panel. Hypertension: Permissive hypertension allowed. We will treat if systolic blood pressures raise over 180 mmHg. PT/OT evaluation, speech evaluation. Continue other chronic medications including B12 patch, iron patch, multivitamin patch, vitamin D3 patch. Cardiac diet. Lovenox 40 mg subcu daily. Full code. Attestations Medical Necessity Statement*: Patient is doing hospital for management of acute weakness on the left side. Coding Level of Care Code Acute Hothouse Worker for [facility] Diagnoses Stroke-like symptoms R29.90 Hemiplegic migraine, intractable, without status migrainosus G43.419 Diabetes mellitus with hyperglycemia, without long-term current use of insulin E11.65 Diabetes mellitus type: type 2 Essential hypertension I10 SVT (supraventricular tachycardia) I47.1
[2020-12-28] MEDS: sodium chloride 0.9% 1,000 ML 50 ML IV (14:47)
[2020-12-28 16:00] VITALS: BP 110/75; PULSE 92; RESP 15; TEMP 37.3; O2SAT 95
--- NOTE | 2020-12-28 17:08 | USCV_ITS ---
Kaylen Alma Age: 34 Gender: F : 1985 Exam Date: 12/28/2020 07:13 Ordering Phys: Waldo Neri MD Technologist: Valeri Albarran [place]am [place] [facility] [place]ication: STROKE BP: 128 / 80 HR: 67 Rhythm: Sinus Technical Quality: Technically difficult study MEASUREMENTS (Male / Female) Normal Values 2D ECHO LV Diastolic Diameter PLAX 3.8 cm 4.2 - 5.9 / 3.9 - 5.3 cm LV Systolic Diameter PLAX 2.4 cm IVS Diastolic Thickness 1.3 cm 0.6 - 1.0 / 0.6 - 0.9 cm IVS Systolic Thickness 1.6 cm LVPW Diastolic Thickness 1.5 cm 0.6 - 1.0 / 0.6 - 0.9 cm LVPW Systolic Thickness 1.8 cm LVOT Diameter 2.0 cm LV Ejection Fraction 2D Teich 66.8 % LA Diameter 2.5 cm Aorta at Sinotubular Diameter 2.5 cm M-MODE Aortic Annulus Diameter 3.0 cm LA Ao Ratio MM 0.9 MV E Point Septal Separation 1.4 cm DOPPLER AV Peak Velocity 110.3 cm/s LVOT Peak Velocity 95.0 cm/s AV Area Cont Eq vti 2.4 cm squared AV Area Cont Eq pk 2.7 cm squared MV Area PHT 5.0 cm squared Mitral E to A Ratio 1.2 MV E' Velocity 58.0 cm/s TR Peak Velocity 202.0 cm/s TR Peak Gradient 16.3 mmHg TV Peak E Velocity 68.0 cm/s Right Atrial Pressure 3.0 mmHg Pulmonary Artery Systolic Pressu 19.3 mmHg PV Peak Velocity 85.0 cm/s RV Acceleration Time 0.1 s RV Ejection Time 0.3 s RV AcT/ET 0.4 FINDINGS Left Ventricle Normal left ventricular cavity size. Normal left ventricular systolic function. No regional wall motion abnormalities. Left ventricular ejection fraction is estimated at 60 %. Normal diastolic function. Right Ventricle The right ventricle is normal in size and function. Right Atrium The right atrium is normal in size. Left Atrium The left atrium is normal in size. Mitral Valve Structurally normal mitral valve without significant stenosis or prolapse. There is no mitral regurgitation. Aortic Valve Structurally normal aortic valve without significant sclerosis or stenosis. There is no aortic regurgitation. Tricuspid Valve Structurally normal tricuspid valve without significant stenosis or regurgitation. Pulmonary artery systolic pressure is normal. Pulmonic Valve Structurally normal pulmonic valve without significant stenosis. There is no pulmonic regurgitation. Pericardium Normal pericardium without effusion. Aorta Normal ascending aorta dimension. CONCLUSIONS 1-Normal left ventricular cavity size. Normal left ventricular systolic function. No regional wall motion abnormalities. Left ventricular ejection fraction is estimated at 60 %. Normal diastolic function. 2-No significant valve abnormalities. 3-There is no pericardial effusion. 4-Pulmonary artery systolic pressure is within normal limits. 5-Right atrial pressure is around 5 mm of mercury. 6-No significant change since the prior echocardiogram study of 09/05/2018. Chaparrita Hernandez MD (Electronically Signed) Final Date: 28 December 2020 19:43 S
[2020-12-28] MEDS: enoxaparin 40 mg/0.4 mL Syringe SUBCUT (17:51)
[2020-12-28 18:00] VITALS: BP 110/75; PULSE 92; RESP 15; TEMP 37.3
[2020-12-28 20:00] VITALS: BP 106/69; PULSE 93; RESP 16; TEMP 36.6; O2SAT 92
[2020-12-28] MEDS: atorvastatin 40 mg Tablet 80 MG PO (22:10)
[2020-12-28] MEDS: diazePAM 2 mg Tablet PO (22:12)
[2020-12-29] VITALS (8 sets, daily range): BP systolic 106–116; BP diastolic 72–78; PULSE 72–91; RESP 15–18; TEMP 36.2–36.7; O2SAT 94–97
[2020-12-29] MEDS: pantoprazole 40 mg SDV IVP ×2 (06:15→17:42)
--- NOTE | 2020-12-29 09:00 | MR_ITS ---
WS: [id number] MRI BRAIN WITH AND WITHOUT CONTRAST HISTORY: Hemiplegic migraine stroke COMPARISON: 08/21/2009 TECHNIQUE: Multiplanar imaging performed through the brain with MultiHance 20 ml's IV. No acute infarcts are seen. Santana-white matter differentiation is well preserved. No significant chron ic white matter ischemic disease. No prior infarct appreciated. No susceptibility artifacts or prior lacunar infarcts. Ventricles and extra-axial spaces are normal. Clivus and pituitary gland are normal. Visualized posterior fossa and brainstem are also normal. Postcontrast images are negative for masses or vascular malformations. There is a prominent vein with in the LEFT lateral pterygoid muscle. Similar to the prior examination. Dural venous sinuses are normal. Paranasal sinuses: Well aerated with no significant disease. Mastoid air cells: Normal. Calvarium and scalp: Normal. MR/MR head wo/w con [id number] IMPRESSION: 1. No evidence for an acute infarct or enhancing mass. 2. No significant chronic white matter disease.
--- NOTE | 2020-12-29 09:00 | MR_ITS ---
WS: [id number] MRA ANGIOGRAPHY [place] OF [place] HISTORY: migraine, stroke like symptoms COMPARISON: None available. TECHNIQUE: 3-D MR angiography is performed of the [place] of [place]. All images are reviewed including source images. Distal vertebral and basilar arteries are intact with no significant stenosis or plaque. Posterior ce rebral arteries are normal course and caliber. Posterior communicating arteries are both patent. Intracranial portion of the internal carotid arteries are normal course and caliber. No significant a therosclerosis, stenosis or aneurysm identified. Middle and anterior cerebral arteries are both paten t with no significant disease. Anterior communicating artery is also normal. MR/MR angio head wo con [id number] IMPRESSION: Normal MRA [place] of [place].
--- NOTE | 2020-12-29 16:31 | PM.PN ---
Subjective Subjective: Interval history: Patient was seen and examined this morning she has shown improvement in her left-sided weakness, currently gaining bladder control. Vitals/I&O/Wt Last Vital Signs Temp 97.7 F 12/29/20 11:20 Pulse 91 12/29/20 11:20 Resp 17 12/29/20 11:20 BP 113/78 12/29/20 11:20 Pulse Ox 94 12/29/20 11:20 12/29/20 12/29/20 12/29/20 06:59 14:59 22:59 Intake Total 1000 / 1000 Balance 1000 / 1000 Weight last 48 hrs Weight 112.582 kg Weight 107.547 kg Physical Exam Const: COMMON NORMALS: patient oriented x3 HENMT: COMMON NORMALS: normocephalic and atraumatic HEAD & SCALP: normocephalic and atraumatic Chest: CHEST: Yes Symmetrical chest wall rise Resp: COMMON NORMALS: clear to auscultation bilaterally EFFORT & INSPECTION: Yes symmetric chest movement AUSCULTATION: clear to auscultation bilaterally Cardio: COMMON NORMALS: regular rate, regular rhythm, S1 normal heart sound present, S2 normal heart sound present, No gallops present (Cardio), No murmurs present (Cardio), No rub (Cardio) and Peripheral pulses 2+ throughout RATE: regular rate RHYTHM: regular rhythm HEART SOUNDS: S1 normal heart sound present and S2 normal heart sound present PERIPHERAL PULSES: Peripheral pulses 2+ throughout GI: COMMON NORMALS: Normal to inspection, nondistended, normoactive bowel sounds present, Soft to palpation, non-tender, No hepatosplenomegaly present and no masses AUSCULTATION: Yes normoactive bowel sounds PALPATION: Yes Soft to palpation and Yes No hepatosplenomegaly present RECTAL EXAM: deferred Extremity: COMMON NORMALS: no clubbing, cyanosis or edema and no pedal edema Neuro: COMMON NORMALS: patient oriented x3 OTHER: Left-sided weakness in both upper and lower extremity, with decreased sensation to touch and pain. Data : 12/28/20 06:47 12/28/20 06:47 A&P Assessment and plan (1) Stroke-like symptoms: Status: Acute (2) Hemiplegic migraine, intractable, without status migrainosus: Status: Acute (3) Diabetes mellitus with hyperglycemia, without long-term current use of insulin: Status: Chronic Qualifiers: Diabetes mellitus type: type 2 Qualified Code(s): E11.65 - Type 2 diabetes mellitus with hyperglycemia (4) Essential hypertension: Status: Chronic (5) SVT (supraventricular tachycardia): Status: Inactive Additional A&P Information 34-year-old female with past medical history of hemiplegic migraine, recent history of lap band surgery, history of hypertension, diabetes mellitus, history of passing out in the past for which pheochromocytoma was ruled out presented to the ER today after found at home passed out following which she was found to have left-sided hemiplegia and slurred speech. Stroke-like symptoms: As per the ER physician conversation with the neurologist at [facility] the concern for hemiplegic migraine stroke. Echocardiogram: Normal left ventricular cavity size. Normal left ventricular systolic function. No regional wall motion abnormalities. Left ventricular ejection fraction is estimated at 60 %. Normal diastolic function. No significant valve abnormalities. There is no pericardial effusion. MRI head with and without contrast:Normal MRA head and neck:Normal MRA [place] of [place]. Vitamin B12: Normal Folate : Normal Telemetry:No acute Findings Follow protein C, protein S, lupus inhibitor anticoagulant, antithrombin 3 activity, factor V Leyden mutation, JAI profile. Cannot rule out seizures. Patient has a history of seizure in father. prolactin: Though normal Seizure precautions. History of SVT: Follow records from Dr. Mclaughlin. Case was Discussed with Dr. Aranda who is the patient's outpatient surgeon. Can start patient on Plavix and statin. It is okay to start patient on aspirin if stroke is confirmed. Check HbA1c, lipid panel. Hypertension: Permissive hypertension allowed. We will treat if systolic blood pressures raise over 180 mmHg. PT/OT evaluation, speech evaluation. Continue other chronic medications including B12 patch, iron patch, multivitamin patch, vitamin D3 patch. Cardiac diet. Lovenox 40 mg subcu daily. Full code. Attestations Medical Necessity Statement*: Patient needs to be in the hospital for management of strokelike symptoms. Coding Level of Care Code Acute Bilingual [employer] for Nicolas Moreno Diagnoses Stroke-like symptoms R29.90 Hemiplegic migraine, intractable, without status migrainosus G43.419 Diabetes mellitus with hyperglycemia, without long-term current use of insulin E11.65 Diabetes mellitus type: type 2 Essential hypertension I10 SVT (supraventricular tachycardia) I47.1
[2020-12-29] MEDS: clopidogrel 75 mg Tablet PO (16:45)
--- NOTE | 2020-12-29 17:21 | PC.OT ---
OT services attempted several times today with pt being unavailable x3 (talking with discharge planning, being too tired and off the floor to CT scan. ALBERT demonstrated L UE gravity eliminated table top glide exercises to pt's mother who will be assisting pt with exercises at home. Will attempt tx again tomorrow.
[2020-12-29] MEDS: gadobenate dimeglumine 20 mL vial IV (17:37)
[2020-12-29] MEDS: enoxaparin 40 mg/0.4 mL Syringe SUBCUT (17:43)
[2020-12-29] MEDS: atorvastatin 40 mg Tablet 80 MG PO (20:45)
[2020-12-29] MEDS: doxepin 10 mg Capsule PO (20:46)
[2020-12-30 00:25] VITALS: BP 112/77; PULSE 90; RESP 18; TEMP 36.5; O2SAT 94
--- NOTE | 2020-12-30 03:15 | PC.NURSE ---
shift note patient rested, easily awaken for neuro checks, left sided weakness and functional limitations remains present but improving, able to feel sensation to left arm and leg when palpated. speech had been clear. denied pain throughout.
[2020-12-30 04:35] VITALS: BP 112/76; PULSE 77; RESP 18; TEMP 36.4; O2SAT 96
[2020-12-30] MEDS: pantoprazole 40 mg SDV IVP (06:35)
[2020-12-30 07:13] LABS: Basophils % 0.3 %; Eosinophils # 0.2 10^3/uL (0.0-0.8); Eosinophils % 2.5 %; Hematocrit 44.2 % (37.0-47.0); Lymphocytes % 33.4 %; Mean Corpuscular HGB Conc 31.7 g/dL (30.0-36.0); Mean Corpuscular Hemoglobin 26.1 pg (28.0-34.0); Mean Corpuscular Volume 82.5 fL (81-99); Mean Platelet Volume 9.8 fL (7.4-10.4); Monocytes # 0.5 10^3/uL (0.2-0.9); Monocytes % 7.5 %; Neutrophils # 3.34 10^3/uL (1.8-7.7); Nucleated Red Blood Cells % 0 %; Platelet Count 181 10^3/cmm (130-400); Red Blood Count 5.36 10^6/uL (4.1-5.3); Red Cell Distribution Width 14.7 % (12.1-15.1)
[2020-12-30 07:19] VITALS: BP 110/77; PULSE 75; RESP 15; TEMP 36.4; O2SAT 95
[2020-12-30 08:00] VITALS: BP 110/77; PULSE 75; RESP 15; TEMP 36.4
[2020-12-30 08:00] LABS: Blood Urea Nitrogen 4 mg/dL (6-20); Calcium 8.6 mg/dL (8.5-10.5); Carbon Dioxide 27 mmol/L (22-29); Chloride 102 mmol/L (98-107); Glomerular Filtration Rate 142.1 mL/min (90-130); Glucose 85 mg/dL (65-115); Osmolality Calculated 290 mOsm/kg (285-295); Sodium 142 mmol/L (136-145)
[2020-12-30 08:06] LABS: Anion Gap 16.2 (5-19)
[2020-12-30 08:07] LABS: Potassium 3.2 mmol/L (3.5-5.1)
--- NOTE | 2020-12-30 09:14 | PC.NURSE ---
pt refused because diet was not acceptable to bariatric surgery diet.
--- NOTE | 2020-12-30 09:50 | PM.DCS ---
Discharge Providers Date of Admission: 12/28/20 19:35 Date of Discharge: December 30, 2020 Attending Provider at Admission: Kristal Blandon MD Attending Provider at Discharge: Stan Hardy MD Primary Care Provider: DAVID Merida Diagnoses at Discharge Discharge Diagnosis (1) Stroke-like symptoms: Status: Acute (2) Hemiplegic migraine, intractable, without status migrainosus: Status: Acute (3) Diabetes mellitus with hyperglycemia, without long-term current use of insulin: Status: Chronic Qualifiers: Diabetes mellitus type: type 2 Qualified Code(s): E11.65 - Type 2 diabetes mellitus with hyperglycemia (4) Essential hypertension: Status: Chronic (5) SVT (supraventricular tachycardia): Status: Inactive Reason for Visit Reason for Visit: STROKE LIKE SYMPTOMS Hospital Course Hospital Course 34 year old female with past medical history of hypertension, hemiplegic migraine, type 2 diabetes mellitus, supraventricular tachycardia, recent history of lap band surgery in October 2020, morbid obesity presented to the ER with strokelike symptoms,As per the patient she was fine when she went to bed last night but she woke up at 3 AM because she was thirsty has had some nausea. Patient drank some water and went back to bed. Only thing she remembers after that is waking up coming out of ambulance to the ER. As per patient's father because patient did not wake up at her usual time of the day they went with checkup on her in her room and found her in PowerChart state. Did not notice any bowel or bladder accidents, frothing from the mouth or tongue bite. On waking up in the ER patient had slurred speech and was unable to move the left side of her body including upper arm and leg. Patient had an NIH score of 5, stroke work-up was done in the ER. CT head without contrast was negative for any acute intracranial pathology.Patient's case was discussed with Dr. Juárez from [facility] who believes patient has hemiplegic migraine and recommended pain control for headache. She was admitted for the management of strokelike symptoms. Work-up done during the hospital stay included: CT angio headneck: No stenosis or occlusion. MR head wo/w con No evidence for an acute infarct or enhancing mass.No significant chronic white matter disease. MR angio head wo con:Normal MRA [place] of [place].Echocardiogram: Normal left ventricular cavity size. Normal left ventricular systolic function. No regional wall motion abnormalities. Left ventricular ejection fraction is estimated at 60 %. Normal diastolic function. No significant valve abnormalities. There is no pericardial effusion. Vitamin B12: Normal, Folate : Normal. Telemetry monitoring was done: Failed to show any significant cardiac arrhythmia. She has a implantable loop recorder in place. She was started on Plavix as well as a statin. During the hospital stay the left-sided weakness was improving, however in both the upper and lower extremity was 4 out of 5, sensations on the left side was also, initially she also had loss of bladder control, which was also resolved at the time of discharge. Based on the presentation likely had hemiplegic migraine. She has been discharged on Plavix and statin given persistent left-sided weakness, at the time of discharge, she had no speech difficulty, no facial asymmetry, no dysphagia. During the hospital stay PT OT and speech was on board. Thrombophilia work-up has also been sent, results are pending. Patient has been advised to follow-up with neurologist as well as cardiology and primary care physician as an outpatient. Overall patient responded well to the above medical management she has been discharged in stable condition to home. Physical Exam Const: COMMON NORMALS: patient oriented x3 HENMT: COMMON NORMALS: normocephalic and atraumatic HEAD & SCALP: normocephalic and atraumatic Chest: CHEST: Yes Symmetrical chest wall rise Resp: COMMON NORMALS: clear to auscultation bilaterally EFFORT & INSPECTION: Yes symmetric chest movement AUSCULTATION: clear to auscultation bilaterally Cardio: COMMON NORMALS: regular rate, regular rhythm, S1 normal heart sound present, S2 normal heart sound present, No gallops present (Cardio), No murmurs present (Cardio), No rub (Cardio) and Peripheral pulses 2+ throughout RATE: regular rate RHYTHM: regular rhythm HEART SOUNDS: S1 normal heart sound present and S2 normal heart sound present PERIPHERAL PULSES: Peripheral pulses 2+ throughout GI: COMMON NORMALS: Normal to inspection, nondistended, normoactive bowel sounds present, Soft to palpation, non-tender, No hepatosplenomegaly present and no masses AUSCULTATION: Yes normoactive bowel sounds PALPATION: Yes Soft to palpation and Yes No hepatosplenomegaly present RECTAL EXAM: deferred Extremity: COMMON NORMALS: no clubbing, cyanosis or edema and no pedal edema Neuro: COMMON NORMALS: patient oriented x3 OTHER: Left-sided weakness in both upper and lower extremity, with decreased sensation to touch and pain. Discharge Data Data Completed and Pending: Completed Studies During Hospitalization Category Date Time Status CT angio headneck * [id number] Stat Cat Scan 12/27/20 09:[address] head wo con* [id number] Stat Cat Scan 12/27/20 09:29 Completed XR chest 1V faheem ble [id number] Stat Exams 12/27/20 09:29 Completed MR angio head wo con [id number] Routine MRI 12/29/20 09:00 Completed MR head wo/w con [id number] Routine MRI 12/29/20 09:00 Completed CV. echo complete * [id number] Routine Ultrasound 12/28/20 17:08 Completed Pending at discharge Category Date Time Status Antithrombin III Activity Routine Lab 12/27/20 18:18 Received Factor 5 Leiden M utation Stat Lab 12/27/20 18:18 Received Lupus Inhibitor P rommel Anticoag Rout ine Lab 12/27/20 18:18 Received [facility] JAI Profile R outine Lab 12/27/20 18:18 Received PROTEIN C, ACTIVI TY Urgent Lab 12/27/20 09:14 Received PROTEIN S, ACTIVI TY Urgent Lab 12/27/20 09:14 Received Labs from last 24 hours 12/30/20 12/30/20 06:26 06:26 WBC 6.0 RBC 5.36 H Hgb 14.0 Hct 44.2 MCV 82.5 MCH 26.1 L MCHC 31.7 RDW 14.7 Plt Count 181 MPV 9.8 Neut % (Auto) 56.0 Lymph % (Auto) 33.4 Bonner % (Auto) 7.5 Eos % (Auto) 2.5 Baso % (Auto) 0.3 Neut # (Auto) 3.34 Lymph # (Auto) 2.0 Bonner # (Auto) 0.5 Eos # (Auto) 0.2 Baso # (Auto) 0.0 Nucleated RBC % (a uto) 0 Nucleated RBCs # 0.0 Sodium 142 Potassium 3.2 L Chloride 102 Carbon Dioxide 27 Anion Gap 16.2 BUN 4 L Creatinine 0.5 GFR Calculation 142.1 H Glucose 85 Calculated Osmolal ity 290 Calcium 8.6 Vitals: Last Vital Signs Temp 97.5 F L 12/30/20 07:19 Pulse 75 12/30/20 07:19 Resp 15 12/30/20 07:19 BP 110/77 12/30/20 07:19 Pulse Ox 95 12/30/20 07:19 Discharge Plan Discharge Patient Disposition: Home Condition: Stable Prescriptions: New Lipitor 40 mg tablet 40 mg PO DAILY Qty: 30 RF: 3 Plavix 75 mg tablet 75 mg PO DAILY Qty: 30 RF: 0 Continued promethazine 25 mg tablet 25 mg PO Q8H PRN (Reason: Nausea) Qty: 30 RF: 2 venlafaxine 100 mg tablet 100 mg PO TID Qty: 90 RF: 2 clonidine HCl 0.1 mg tablet 0.1 mg PO BID PRN (Reason: hypertensive emergency) Qty: 60 RF: 2 diazepam [Valium] 5 mg tablet 5 mg PO BID PRN (Reason: anxiety) Qty: 60 RF: 0 baclofen 20 mg tablet 20 mg PO TID PRN (Reason: Pain) RF: 0 scopolamine base [Transderm-Scop] 1 mg over 3 days patch 3 day 1 patch transdermal Q3D PRN (Reason: nausea and vomiting) Qty: 4 RF: 2 hydrocodone-acetaminophen 5-325 mg tablet 1 tab PO Q6H PRN (Reason: pain) Qty: 28 RF: 0 pantoprazole [Protonix] 40 mg tablet,delayed release (DR/EC) 40 mg PO DAILY Qty: 30 RF: 2 Allergy Relief (cetirizine) 10 mg Tablet 10 mg PO DAILY PRN (Reason: Allergy Symptoms) RF: 0 Ajovy Autoinjector 225 mg/1.5 mL auto-injector 225 mg SUBCUT Q30D RF: 0 B-12 Patch 1 ea transdermal Q12H RF: 0 Iron Plus Patch 1 ea transdermal Q12H RF: 0 Multivitamin Patch 1 patch transdermal Q12H RF: 0 Vitamin D3 Plus Calcium Patch 1 ea transdermal Q12H RF: 0 doxepin 10 mg capsule 10 mg PO BEDTIME RF: 0 Discharge Orders: Discharge Order (Routine); Ordered 12/30/20 Ordered By: Stan Hardy Other Ambulatory Orders: DME: Wheelchair (Order) Location: None Selected Ordered By: Stan Hardy Referrals: Rosalba Maldonado BROADCAST SYSTEMS ENGINEER-C [Primary Care Provider] - 01/12/21 10:30 am Discharge Diet: Regular Discharge Activity: Increase activity as tolerated Patient Instructions: Atorvastatin (By mouth), Clopidogrel (By mouth), Headache - Migraine (Adult), Idiopathic Pulmonary Arterial Hypertension (DC), Hypertension (DC), Opioid Safety Activity Restrictions/Additional Instructions: Patient will follow with neurologist as well as her Telephone Operators Supervisor as outpatient Discharge Attestations Time Spent in Discharge Care*: less than 30 min Specific Discharge Activities: educating patient, educating and/or supporting family/caregiver, discussing with pcp/other providers, discussing with case technician/social workers/dc planners, documenting/other paperwork and evaluating patient/reviewing data Status at Discharge: Cognitive status at discharge: cognitively intact, Behavioral status at discharge: cooperative, Quality Metrics Clinical Quality Measures During this hospital stay, did patient experience: None Coding Level of Care Code Acute Chg FW DC note Diagnoses Stroke-like symptoms R29.90 Hemiplegic migraine, intractable, without status migrainosus G43.419 Diabetes mellitus with hyperglycemia, without long-term current use of insulin E11.65 Diabetes mellitus type: type 2 Essential hypertension I10 SVT (supraventricular tachycardia) I47.1
[2020-12-30] MEDS: clopidogrel 75 mg Tablet PO (09:52)
[2020-12-30 10:00] VITALS: BP 110/77; PULSE 75; RESP 15; TEMP 36.4
[2020-12-30 11:28] VITALS: BP 110/77; PULSE 75; RESP 15; TEMP 36.4
--- NOTE | 2020-12-30 11:31 | PC.NURSE ---
PT HAS DONE WELL FOR ME TODAY. PT HAS BEEN UP TO CHAIR. MOM IS IN ROOM WITH PT. PT IS STRONGER TODAY. PT DOES HAVE SOME LEFT SIDED WEAKNESS BUT IS DOING GOOD GETTING UP AND AMBULATING. PT WILL DISCHARGE TODAY PER MD. PT IS READY TO GO HOME. DISCHARGE PAPERWORK GONE OVER WITH PT. ALL QUESTIONS ANSWERED. MEDICATIONS WERE SENT TO PHARMACY. IV WAS REMOVED. PT TOLERATED WELL. CATHETER TIP INTACT. PT WAS WHEELED OUT AND SAFELY DISCHARGED FROM THE HOSPITAL AT 1123.
--- NOTE | 2020-12-31 14:19 | PC.NURSE ---
Patient's mother called stating that she was unable to obtain the Plavis from [facility] due to insurance authorization. I spoke with Dr. Hardy and he states that as long as patient was stable and doing okay, it would be okay for her to wait until the medication is approve by insurance. I called back and spoke with the patient and informed her of this. She states that the medication was cancelled because the physician needed to do a prior authorization. I spoke with Dr. Hardy and he states that he would prefer the Neurologist follow up with her and start the Plavix if needed as he believes the main problem is hemiplegic migraines. I called and spoke with the patient and she verbalizes understanding. I called back to [facility] and cancelled the Plavix order.
[2021-01-01 04:07] LABS: Inhibitor Screen Reflex Weak Positive (Negative)
[2021-01-02 05:17] LABS: PROTEIN S, ACTIVITY 108 % normal (60-140)
[2021-01-02 06:28] LABS: PROTEIN C, ACTIVITY 123 % (70-180)
== END 2020-12-30 11:23 | disposition home or self-care (01) ==
LOC: ER 11:17 → MEDSURG 11:40
PROVIDERS: Student in an Organized Health Care Education/Training Program; Admitting Provider Student in an Organized Health Care Education/Training Program; Emergency Provider Family Medicine; PCP Nurse Practitioner; Visit Provider Internal Medicine
DX: G43.419 Hemiplegic migraine, intractable, without status migrainosus (principal); Z86.16 Personal history of COVID-19; I10 Essential (primary) hypertension; E11.65 Type 2 diabetes mellitus with hyperglycemia; I47.1 Supraventricular tachycardia; Z98.84 Bariatric surgery status; E66.01 Morbid (severe) obesity due to excess calories; Z68.42 Body mass index [BMI] 45.0-49.9, adult; F32.9 Major depressive disorder, single episode, unspecified; F41.1 Generalized anxiety disorder; E28.2 Polycystic ovarian syndrome; Z79.4 Long term (current) use of insulin
CPT/HCPCS: 36415; 70450; 70496; 70498; 70544; 70553; 71045; 80048; 80053; 80061; 80306; 81003; 81241; 82550; 82607; 82728; 82746; 83036; 83540; 83550; 83735; 84100; 84145; 84146; 85025; 85300; 85303; 85306; 85613; 85730; 86140; 86225; 86235; 92523; 92610; 93005; 93306; 94664; 96361; 96372; 96374; 96375; 97110; 97112; 97116; 97162; 97166; 97530; 99285; A9577; C9113; G0378; J1650; J1885; J2405; J2550; J7030; J7050; Q9967

== ENCOUNTER → 2021-01-06 07:33 | Outpatient (BNVA) | payer MEDICAID, SELFPAY | PROVIDERS: PCP Nurse Practitioner; Visit Provider Counselor Professional | DX: F41.1 Generalized anxiety disorder (principal); F41.0 Panic disorder [episodic paroxysmal anxiety] | CPT/HCPCS: 90834; 90832 ==

== ENCOUNTER → 2021-01-21 07:45 | Outpatient (BNVA) | payer MEDICAID, SELFPAY | PROVIDERS: PCP Nurse Practitioner; Visit Provider Counselor Professional | DX: F41.1 Generalized anxiety disorder (principal); F41.0 Panic disorder [episodic paroxysmal anxiety] | CPT/HCPCS: 90834; 90832 ==

== ENCOUNTER 2021-01-21 14:32 | Outpatient (CLI) | payer MEDICAID, SELFPAY ==
[2021-01-21 14:52] LABS: Basophils % 0.5 %; Eosinophils # 0.1 10^3/uL (0.0-0.8); Eosinophils % 1.1 %; Hematocrit 43.2 % (37.0-47.0); Lymphocytes # 2.3 10^3/uL (0.8-4.8); Lymphocytes % 27.9 %; Mean Corpuscular HGB Conc 32.4 g/dL (30.0-36.0); Mean Corpuscular Hemoglobin 26.4 pg (28.0-34.0); Mean Corpuscular Volume 81.5 fL (81-99); Mean Platelet Volume 9.6 fL (7.4-10.4); Monocytes # 0.4 10^3/uL (0.2-0.9); Monocytes % 5.4 %; Neutrophils # 5.24 10^3/uL (1.8-7.7); Neutrophils % 64.9 %; Nucleated Red Blood Cells % 0 %; Platelet Count 262 10^3/cmm (130-400); Red Cell Distribution Width 14.1 % (12.1-15.1); White Blood Count 8.1 10^3/uL (4.0-10.0)
[2021-01-21 15:12] LABS: Alanine Aminotransferase 14 U/L (0-33); Albumin Level 3.8 g/dL (3.5-5.2); Alkaline Phosphatase 142 IU/L (35-105); Anion Gap 15.6 (5-19); Aspartate Amino Transferase 23 U/L (0-32); Blood Urea Nitrogen 5 mg/dL (6-20); C Reactive Protein 41.2 mg/L (0.0-4.9); Calcium 8.8 mg/dL (8.5-10.5); Carbon Dioxide 32 mmol/L (22-29); Chloride 96 mmol/L (98-107); Globulin 3.1 g/dL (1.3-4.6); Glomerular Filtration Rate 142.1 mL/min (90-130); Glucose 101 mg/dL (65-115); Osmolality Calculated 289 mOsm/kg (285-295); Sodium 141 mmol/L (136-145); Total Bilirubin 0.4 mg/dL (0.15-1.2); Total Protein 6.9 g/dL (6.6-8.7)
[2021-01-21 15:17] LABS: Potassium 2.6 mmol/L (3.5-5.1)
[2021-01-21 16:06] LABS: Erythrocyte Sedimentation Rate 47 mm/hr (0-15)
[2021-01-22 12:06] LABS: Lyme AB Screen <0.90 index
[2021-01-26 17:22] LABS: E. Chaffeensis AB IGG <1:64; E. Chaffeensis AB IGM <1:20
[2021-01-27 21:17] LABS: RMSF IGG NOT DETECTED; RMSF IGM NOT DETECTED
== END 2021-01-21 14:33 | disposition home or self-care (01) ==
PROVIDERS: PCP Nurse Practitioner; Visit Provider Nurse Practitioner
DX: T14.8XXA Other injury of unspecified body region, initial encounter (principal); W57.XXXA Bitten or stung by nonvenomous insect and other nonvenomous arthropods, initial encounter
CPT/HCPCS: 36415; 80053; 85025; 85651; 86140; 86618; 86666; 86757

== ENCOUNTER → 2021-01-25 11:15 | Outpatient (BNVA) | payer MEDICAID, SELFPAY | PROVIDERS: PCP Nurse Practitioner; Visit Provider Nurse Practitioner | DX: E87.6 Hypokalemia (principal) | CPT/HCPCS: 80048 ==

== ENCOUNTER → 2021-02-04 07:38 | Outpatient (BNVA) | payer MEDICAID, SELFPAY | PROVIDERS: PCP Nurse Practitioner; Visit Provider Nurse Practitioner | DX: F41.1 Generalized anxiety disorder (principal); F41.0 Panic disorder [episodic paroxysmal anxiety] | CPT/HCPCS: 99214 ==

== ENCOUNTER → 2021-02-25 10:41 | Outpatient (BNVA) | payer MEDICAID, SELFPAY | PROVIDERS: PCP Nurse Practitioner; Visit Provider Family Medicine Adult Medicine | DX: Z98.84 Bariatric surgery status (principal) | CPT/HCPCS: 80053; 80061; 82310; 82607; 82728; 82746; 83550; 83735; 83970; 84100; 84443; 85025 ==

== ENCOUNTER → 2021-05-10 12:52 | Outpatient (BNVA) | payer MEDICAID, SELFPAY | PROVIDERS: PCP Nurse Practitioner; Visit Provider Nurse Practitioner Family | DX: Z20.828 Contact with and (suspected) exposure to other viral communicable diseases (principal) | CPT/HCPCS: 87635 ==

== ENCOUNTER → 2021-07-13 08:47 | Outpatient (BNVA) | payer MEDICAID, SELFPAY | PROVIDERS: PCP Nurse Practitioner; Visit Provider Nurse Practitioner Family | DX: Z20.822 Contact with and (suspected) exposure to COVID-19 (principal); Z20.828 Contact with and (suspected) exposure to other viral communicable diseases | CPT/HCPCS: 87635 ==

== ENCOUNTER → 2021-07-21 10:05 | Outpatient (BNVA) | payer MEDICAID, SELFPAY | PROVIDERS: PCP Nurse Practitioner; Visit Provider Nurse Practitioner | DX: J02.9 Acute pharyngitis, unspecified (principal); E87.6 Hypokalemia | CPT/HCPCS: 80048; 87071; 87880 ==

== ENCOUNTER → 2021-09-06 12:46 | Outpatient (BNVA) | payer MEDICAID, SELFPAY | PROVIDERS: PCP Nurse Practitioner; Visit Provider Nurse Practitioner | DX: J32.9 Chronic sinusitis, unspecified (principal) | CPT/HCPCS: 87400 ==

== ENCOUNTER → 2021-09-29 14:22 | Outpatient (BNVA) | payer MEDICAID, SELFPAY | PROVIDERS: PCP Nurse Practitioner; Visit Provider Surgery | DX: Z98.84 Bariatric surgery status (principal) | CPT/HCPCS: 99213 ==

== ENCOUNTER → 2022-01-03 09:51 | Outpatient (BNVA) | payer MEDICAID, SELFPAY | PROVIDERS: PCP Nurse Practitioner; Visit Provider Nurse Practitioner | DX: J98.01 Acute bronchospasm (principal); G43.109 Migraine with aura, not intractable, without status migrainosus; I10 Essential (primary) hypertension; Z98.84 Bariatric surgery status | CPT/HCPCS: 80053; 80061; 82310; 82607; 82652; 82728; 82746; 83550; 83735; 83970; 84425; 84443; 84630; 85025 ==

== ENCOUNTER → 2022-01-05 12:47 | Outpatient (BNVA) | payer MEDICAID, SELFPAY | PROVIDERS: PCP Nurse Practitioner; Visit Provider Surgery | DX: Z98.84 Bariatric surgery status (principal) | CPT/HCPCS: 99213 ==

== ENCOUNTER → 2022-02-25 10:50 | Outpatient (BNVA) | payer MEDICAID, SELFPAY | PROVIDERS: PCP Nurse Practitioner; Visit Provider Registered Nurse Neonatal Intensive Care | DX: R50.9 Fever, unspecified (principal); B34.9 Viral infection, unspecified | CPT/HCPCS: 87426 ==

== ENCOUNTER 2022-10-01 17:45 | Emergency (ER) | payer MEDICAID, SELFPAY ==
--- NOTE | 2022-10-01 18:02 | W.ED.FALL ---
HPI - Fall General: Chief Complaint: Extremity Injury, Lower Stated Complaint: Fall Time Seen by Provider: 10/01/22 18:02 History of Present Illness: 36-year-old female comes in today with complaints of injury to the left knee and left ankle. Patient was working on their house when she stepped in an exposed event causing her to step through the event into the floor. Patient reports twisting her knee and her ankle on the left side. Patient has a noticeable abrasion to the lateral left lower leg. Patient cannot recall her last tetanus shot. Patient has a history of obesity, bariatric surgery, major depressive disorder, hypertension, sleep apnea, anxiety disorder. Patient appears nontoxic. Patient appears in mild to moderate pain. Associated symptoms-after fall: Denies chest pain Review of Systems General: Reports: 10 or more systems reviewed and unremarkable except in HPI and below Const: Denies: fever(s) Card: Denies: chest pain Resp: Denies: dyspnea GI: Denies: nausea Musc: Reports: extremity pain (Left lower leg injury) Skin/Breast: Reports: new lesions (Abrasion left lower leg) [facility] ED [facility]: Medical History (Updated 10/01/22 @ 19:00 by AURE Lechuga) BMI 50.0-59.9, adult Bronchospasm Chronic migraine with aura COVID-19 Depression Diabetes mellitus with hyperglycemia, without long-term current use of insulin Encounter for pre-bariatric surgery counseling and education Essential hypertension Generalized anxiety disorder Headache, hemiplegic migraine, intractable Insomnia Major depressive disorder, recurrent, moderate Painful respiratory movement Panic disorder PCOS (polycystic ovarian syndrome) Pre-op evaluation Psychiatric care Resistant hypertension Sleep apnea, unspecified Stroke-like symptoms SVT (supraventricular tachycardia) Tinea versicolor Viral syndrome Surgical History History of appendectomy (07/04/18) History of bladder surgery (1996) 1996 and 1994; Possibly just urethral History of cholecystectomy (01/29/17) History of drainage of abscess (2013) 2013 Left axillary region. Excision of sinus tract due to recurrent abscess formation. 2010 Left axillary region. Excision of sinus tract due to recurrent abscess formation. History of hysterectomy (~2017) Attributes: Left. Comments: ovary gone History of tonsillectomy and adenoidectomy (1993) S/P laparoscopic sleeve gastrectomy Status post laparoscopic sleeve gastrectomy Status post placement of implantable loop recorder Family History Mother Hypertension Meniere's disease Father Hypertension Hypercholesterolemia Grandfather Cancer Paternal; Lung Grandmother Cancer Maternal; Bone Hypercholesterolemia Maternal Meniere's disease Maternal Family/Other Meniere's disease Maternal Great Grandfather Denies family history of Anesthesia complication Bleeding disorder Social History Smoking and tobacco status: never smoked Second hand smoke exposure: No Alcohol intake: never Adopted: No Caregiver/support person: Yes Lives independently: Yes Household members: spouse Housing: House Marital status: Highest education level completed: High School Graduate service: No Current occupational status: employed 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 Current occupational exposures/hazards: No Pets and animals: No Sexually active: Yes Current gender identity: Female Sunni/Yazidism: Uatsdin Special sunni needs: No Agree to transfusion: No Financial difficulty paying for basics: Decline to Answer Physical Exam Const: COMMON NORMALS: alert HENMT: COMMON NORMALS: atraumatic HEAD & SCALP: atraumatic Neck/C-Spine: COMMON NORMALS: full ROM Chest: COMMONS NORMALS: normal inspection of the chest Resp: COMMON NORMALS: normal respiratory effort Cardio: COMMON NORMALS: regular rate RATE: regular rate Back/Pelvis: COMMON NORMALS: thoracic and lumbar spine normal to inspection Extremity: LEFT LOWER EXTREMITY: Yes knee joint (Posterior tenderness), Yes lower leg (Lateral abrasion approximately 12 cm) and Yes ankle joint (Lateral tenderness with mild swelling) Left ankle: Yes neurovascular exam (Distal intact.) Neuro: SENSORIUM/ORIENTATION: Yes alert Skin: TRAUMA: abrasion (Abrasion left lower leg.) Course Vital Signs: Vital signs: Vital Signs Pulse Rate 115 H 10/01/22 18:20 Respiratory Rate 16 10/01/22 18:20 Blood Pressure 145/79 10/01/22 18:20 Pulse Oximetry 97 10/01/22 18:20 Oxygen Delivery Me thod 10/01/22 18:20 MDM - Fall Medical Decision Making 36-year-old female comes in today for evaluation of injuries that occurred just prior to arrival. Patient stepped in the open vent while doing remodeling at home. On exam patient has some tenderness to the posterior knee, lateral ankle tenderness, and abrasion to the left lower leg. Distal neurovascular is not checked. Patient is guarded with movement due to pain. Differential diagnosis includes sprain, dislocation, abrasion, contusion. No obvious deformity is noted. Patient cannot recall her last tetanus and it was updated. Patient was given 30 mg of Toradol IM for pain. Abrasion was cleaned and dressed with nonstick dressing. X-rays noted no fracture of the knee or ankle. Patient did have small joint effusion to the knee. Reviewed exam with patient with recommendations for treatment and follow-up. Patient reported understanding and agreed to plan. Lab Data Radiology Impressions Ankle X-Ray 10/01/22 18:05 IMPRESSION: No acute findings. Knee X-Ray 10/01/22 18:05 IMPRESSION: Small joint effusion. Discharge Plan Discharge Patient Disposition: Home Clinical Impression: Left knee sprain Qualifiers: Encounter type: initial encounter Involved ligament of knee: unspecified ligament Qualified Code(s): S83.92XA - Sprain of unspecified site of left knee, initial encounter Abrasion of leg, left Qualifiers: Encounter type: initial encounter Qualified Code(s): S80.812A - Abrasion, left lower leg, initial encounter Left ankle sprain Qualifiers: Encounter type: initial encounter Involved ligament of ankle: unspecified ligament Qualified Code(s): S93.402A - Sprain of unspecified ligament of left ankle, initial encounter Clinical Impression: (Ruled Out): Panic disorder Condition: Stable Prescriptions: No Action Probiotic 20 billion cell capsule 20,000 mmu cells PO .2 times day Qty: 60 2RF Rx Instructions: administer with a meal sertraline [Zoloft] 50 mg tablet 50 mg PO DAILY Qty: 30 1RF trazodone 100 mg tablet 200 mg PO .HS Qty: 60 2RF diazepam [Valium] 5 mg tablet 5 mg PO BID PRN (Reason: anxiety) Qty: 60 0RF ondansetron 8 mg tablet,disintegrating 8 mg PO Q8H PRN (Reason: nausea and vomiting) Qty: 20 0RF albuterol sulfate [Ventolin HFA] 90 mcg/actuation HFA aerosol inhaler 2 puff inhalation Q6H PRN (Reason: shortness of breath or wheezing) Qty: 8.5 2RF baclofen 20 mg tablet 20 mg PO Q12H PRN (Reason: Pain) Qty: 60 2RF clonidine HCl 0.1 mg tablet 0.1 mg PO BID PRN (Reason: hypertensive emergency) Qty: 60 2RF pantoprazole 40 mg tablet,delayed release (DR/EC) See Rx Instructions .ROUTE .COMPLEX Qty: 60 2RF Dose Instruction: TAKE 1 TABLET BY MOUTH TWICE DAILY Rx Instructions: TAKE 1 TABLET BY MOUTH TWICE DAILY meclizine 25 mg tablet 25 mg PO BID Qty: 20 0RF Qulipta 60 mg tablet 60 mg PO DAILY Qty: 30 2RF promethazine 25 mg tablet 25 mg PO Q8H PRN (Reason: Nausea) Qty: 30 2RF valsartan [Diovan] 40 mg tablet 40 mg PO DAILY Qty: 30 2RF Allergy Relief (cetirizine) 10 mg Tablet 10 mg PO DAILY PRN (Reason: Allergy Symptoms) Discharge Orders: Discharge ED (Routine); Ordered 10/01/22 Ordered By: Blas Stacy Referrals: Rosalba Maldonado, DIRECTOR OUTPATIENT SERVICES-C [Primary Care Provider] - Discharge Diet: Usual diet Discharge Activity: Increase activity as tolerated Patient Instructions: Musculoskeletal Pain (ED) Activity Restrictions/Additional Instructions: Use crutches until he can bear weight comfortably to the extremity. Use acetaminophen and ibuprofen to help with pain. Use ice packs for further pain relief. Use elastic bandage for comfort. Follow-up with primary care for further instruction. Return to ED for new concerns. Coding Level of Care Code ED Electronic Assembler for Nicolas Mroeno
--- NOTE | 2022-10-01 18:05 | XRR_ITS ---
PROCEDURE INFORMATION: Exam: XR Left Knee Exam date and time: 10/01/2022 6:27 PM Age: 36 years old Clinical indication: Injury or trauma; Fall; Blunt trauma; Knee and ankle; Left; Additional info: Twist injury TECHNIQUE: Imaging protocol: Radiologic exam of the left knee. Views: 3 views. COMPARISON: CR (LOW EXM, ) 10/01/2022 6:25 PM FINDINGS: Bones/joints: Small joint effusion. Soft tissues: Normal. XR/XR knee LT 3V* [id number] IMPRESSION: Small joint effusion.
--- NOTE | 2022-10-01 18:05 | XRR_ITS ---
PROCEDURE INFORMATION: Exam: XR Left Ankle Exam date and time: 10/01/2022 6:25 PM Age: 36 years old Clinical indication: Injury or trauma; Fall; Blunt trauma; Knee and ankle; Left TECHNIQUE: Imaging protocol: Radiologic exam of the left ankle. Views: 3 or more views. COMPARISON: No relevant prior studies available. FINDINGS: Bones/joints: Normal. Soft tissues: Normal. XR/XR ankle LT min 3V* [id number] IMPRESSION: No acute findings.
[2022-10-01 18:07] VITALS: BP 142/121; PULSE 119; RESP 20; O2SAT 99; BMI 47.9
[2022-10-01 18:20] VITALS: BP 145/79; PULSE 115; RESP 16; O2SAT 97
[2022-10-01] MEDS: ketorolac 30 mg/mL INJ IM (18:22)
[2022-10-01] MEDS: tetanus-dipt-pertussis 0.5 mL SDV IM (18:22)
[2022-10-01] MEDS: bacitracin ointment Pkt 1 EACH TOPICAL (18:23)
[2022-10-01 19:20] VITALS: BP 145/79; PULSE 115; RESP 16; O2SAT 97
== END 2022-10-01 19:22 | disposition home or self-care (01) ==
PROVIDERS: Emergency Provider Nurse Practitioner Family; PCP Nurse Practitioner
DX: S83.92XA Sprain of unspecified site of left knee, initial encounter (principal); S80.812A Abrasion, left lower leg, initial encounter; S93.402A Sprain of unspecified ligament of left ankle, initial encounter; M25.462 Effusion, left knee; E11.9 Type 2 diabetes mellitus without complications; I10 Essential (primary) hypertension; W13.3XXA Fall through floor, initial encounter; Z23 Encounter for immunization
CPT/HCPCS: 73562; 73610; 90471; 90715; 96372; 99284; E0114; J1885

== ENCOUNTER → 2022-10-20 09:50 | Outpatient (BNVA) | payer MEDICAID, SELFPAY | PROVIDERS: PCP Nurse Practitioner; Referring Provider Nurse Practitioner; Visit Provider Student in an Organized Health Care Education/Training Program | DX: W17.2XXA Fall into hole, initial encounter (principal); S83.92XA Sprain of unspecified site of left knee, initial encounter | CPT/HCPCS: 73560; 73565 ==

== ENCOUNTER 2022-11-08 08:34 | Outpatient (CLI) | payer MEDICAID, SELFPAY ==
--- NOTE | 2022-11-08 08:45 | MR_ITS ---
WS: [id number] MRI LEFT KNEE NONCONTRAST TECHNIQUE: Axial PD, coronal PD fat sat, coronal PD, sagittal PD, and sagittal PD fat-sat images obta ined. CLINICAL INFORMATION: pain COMPARISON: None. FINDINGS: Distal quadriceps and patella tendons are intact. Hypertrophic patella. Normal ACL and PCL. Normal me dial and lateral meniscus. No acute appearing meniscal tears. Mild chondromalacia patella worse in the lateral patella facet. Slightly hypertrophic patella. Medial and lateral patellar retinaculum are intact. Mild soft tissue edema about the joint line. Small gang lion cyst along the PCL measuring 10.6 x 5.2 mm. Normal lateral collateral ligament. Normal medial co llateral ligament. Normal popliteal fossa. No other acute findings. MR/MR knee LT wo con* [id number] IMPRESSION: 1. Normal ACL and PCL. 2. Normal medial and lateral meniscus. No acute appearing meniscal tears. 3. Small ganglion cyst along the dorsal PCL measuring 5.2 mm. 4. Normal medial and lateral collateral ligaments. 5. Mild chondromalacia patella worse in the lateral patella facet. Outbridge grading: grade I: focal areas of hyperintensity with normal contour
== END 2022-11-08 08:35 | disposition home or self-care (01) ==
LOC: RAD 08:37
PROVIDERS: PCP Nurse Practitioner; Visit Provider Student in an Organized Health Care Education/Training Program
DX: S83.92XA Sprain of unspecified site of left knee, initial encounter (principal); X58.XXXA Exposure to other specified factors, initial encounter; M67.462 Ganglion, left knee; M22.42 Chondromalacia patellae, left knee
CPT/HCPCS: 73721

== ENCOUNTER → 2023-03-10 13:52 | Outpatient (BNVA) | payer MEDICAID, SELFPAY | PROVIDERS: PCP Nurse Practitioner; Visit Provider Nurse Practitioner Family | DX: R50.9 Fever, unspecified (principal); B34.9 Viral infection, unspecified | CPT/HCPCS: 87426 ==

== ENCOUNTER → 2023-03-22 12:35 | Outpatient (BNVA) | payer MEDICAID, SELFPAY | PROVIDERS: PCP Nurse Practitioner; Visit Provider Nurse Practitioner | DX: R39.9 Unspecified symptoms and signs involving the genitourinary system (principal); N39.0 Urinary tract infection, site not specified; N30.00 Acute cystitis without hematuria; B37.9 Candidiasis, unspecified | CPT/HCPCS: 81000; 87086 ==

== ENCOUNTER 2024-12-09 11:49 | Outpatient (CLI) | payer OTHER, SELFPAY | END 2024-12-09 11:50 | disposition home or self-care (01) | PROVIDERS: PCP Family Medicine; Visit Provider Family Medicine | DX: Z13.6 Encounter for screening for cardiovascular disorders (principal) | CPT/HCPCS: 80053; 84443; 85025 ==

== ENCOUNTER 2025-02-13 13:38 | Emergency (ER) | payer OTHER, SELFPAY ==
[2025-02-13 13:45] VITALS: BP 93/68; PULSE 85; RESP 17; TEMP 36.8; O2SAT 98; BMI 35.6
--- NOTE | 2025-02-13 15:56 | W.ED.HA ---
HPI - Headache General: Chief Complaint: Headache Stated Complaint: Migrane Time Seen by Provider: 02/13/25 15:54 History of Present Illness: 39-year-old female history of migraines but goes back several years. She has had migraines as far back as 2019. She has had a prolonged episode of migraine she is now having some scotoma. She has no history of any head trauma. She is on any migraine prophylaxis. She states she has had this headache for several months. Patient has a longstanding previous history of migraines. She is previously seen in the specialty clinic for migraines in [place]. She evidently is in the process of trying getting set up to see neurology in [place] Associated symptoms: Deny chest pain, fever(s) or rash Related Data Home Medications ?Medication ?Instructions ?Recorded ?Confirmed cetirizine 10 mg tablet (Allergy 10 mg PO DAILY PRN Allergy Symptoms 12/27/20 12/09/24 Relief (cetirizine)) Previous Rx's ?Medication ?Instructions ?Recorded diazepam 5 mg tablet (Valium) 5 mg PO BID PRN anxiety #60 tabs 01/27/25 trazodone 100 mg tablet 200 mg (2 x 100 mg) PO .HS #60 tabs 01/27/25 venlafaxine 100 mg tablet 100 mg PO TID #90 tabs 01/27/25 scopolamine base 1 mg over 3 days 1 patch transdermal Q72H PRN 02/13/25 transdermal patch nausea and vomiting #4 ea Allergies Allergy/AdvReac Type Severity Reaction Status Date / Time metoclopramide (From Reglan) Allergy Severe Seizure Verified 12/09/24 11:22 Review of Systems Const: Denies: fever(s) or chills Card: Denies: chest pain Resp: Denies: dyspnea GI: Denies: abdominal pain : Denies: dysuria, urinary frequency or urinary urgency Musc: Denies: neck pain or back pain Skin/Breast: Denies: rash PFSH ED PFSH: Medical History Major depressive disorder, recurrent, moderate Insomnia Psychiatric care Viral syndrome Tinea versicolor Bronchospasm Stroke-like symptoms Headache, hemiplegic migraine, intractable Pre-op evaluation COVID-19 Panic disorder Encounter for pre-bariatric surgery counseling and education Diabetes mellitus with hyperglycemia, without long-term current use of insulin Essential hypertension Resistant hypertension Painful respiratory movement Chronic migraine with aura Has gone to the [facility] in [place] Sleep apnea, unspecified Generalized anxiety disorder BMI 50.0-59.9, adult SVT (supraventricular tachycardia) PCOS (polycystic ovarian syndrome) Depression Surgical History History of Rachell-en-Y gastric bypass S/P laparoscopic sleeve gastrectomy Status post laparoscopic sleeve gastrectomy Status post placement of implantable loop recorder History of drainage of abscess (2013) 2013 Left axillary region. Excision of sinus tract due to recurrent abscess formation. 2010 Left axillary region. Excision of sinus tract due to recurrent abscess formation. History of bladder surgery (1996) 1996 and 1994; Possibly just urethral History of tonsillectomy and adenoidectomy (1993) History of cholecystectomy (01/29/17) History of hysterectomy (~2017) Attributes: Left. Comments: ovary gone History of appendectomy (07/04/18) Family History Mother Hypertension Meniere's disease Father Hypertension Hypercholesterolemia Grandfather Cancer Paternal; Lung Grandmother Cancer Maternal; Bone Hypercholesterolemia Maternal Meniere's disease Maternal Family/Other Meniere's disease Maternal Great Grandfather Denies family history of Anesthesia complication Bleeding disorder Social History Smoking and tobacco/nicotine status: never used tobacco/nicotine Second hand smoke exposure: No Alcohol intake: never Substance/Drug Use: never Adopted: No Caregiver/support person: Yes Lives independently: Yes Household members: spouse Housing: House Marital status: Highest education level completed: High School Graduate service: No Current occupational status: employed 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 Current occupational exposures/hazards: No Pets and animals: No Sexually active: Yes Do you think of yourself as: Straight/Heterosexual Current gender identity: Female Sunni/Congregational: Taoist Special sunni needs: No Agree to transfusion: No Physical Exam Const: GENERAL APPEARANCE: cooperative ORIENTATION/CONSCIOUSNESS: Yes awake, Yes oriented to person, Yes oriented to place and Yes oriented to time HENMT: COMMON NORMALS: normocephalic, atraumatic and hearing grossly normal bilaterally HEAD & SCALP: normocephalic and atraumatic Resp: COMMON NORMALS: normal respiratory effort, No retractions, No use of accessory muscles and clear to auscultation bilaterally AUSCULTATION: clear to auscultation bilaterally Cardio: COMMON NORMALS: regular rate, regular rhythm and No murmurs present (Cardio) RATE: regular rate RHYTHM: regular rhythm GI: COMMON NORMALS: Soft to palpation and No hepatosplenomegaly present AUSCULTATION: Yes normoactive bowel sounds PALPATION: Yes Soft to palpation, No Tenderness to palpation present (GI), No Guarding due to palpation present (GI) and Yes No hepatosplenomegaly present Extremity: COMMON NORMALS: normal to inspection, capillary refill normal, no clubbing, cyanosis or edema, no calf tenderness and no pedal edema Neuro: SENSORIUM/ORIENTATION: Yes oriented to person, Yes oriented to place and Yes oriented to time Skin: COMMON NORMALS: no rashes or lesions noted GENERAL SKIN EXAM: no rashes or lesions noted Course Vital Signs: Vital signs: Vital Signs Temperature 98.2 F 02/13/25 13:45 Pulse Rate 104 H 02/13/25 18:16 Respiratory Rate 17 02/13/25 13:45 Blood Pressure 133/83 02/13/25 18:16 Pulse Oximetry 100 02/13/25 18:16 Oxygen Delivery Me thod Room Air 02/13/25 13:45 MDM - Headache Medical Decision Making Patient has had chronic migraines in the past she has past chart reviewed. She has some scotoma now which think is consistent with her migraines in the past. Neurologically intact no focal logic deficits noted. Patient's family member becomes visibly angry only advised typically we do not get CT head for case like this since she has chronic migraines no focal neurologic finding. Not indicated at this time. Family members upset because they anticipate a faster referral to neurology if his CT of the head is done. Patient was not opposed to treating headache without proceeding with any advanced imaging. Patient was given medications for her migraine including Valproic acid Compazine ketorolac and diphenhydramine. She was also given IV fluids. Patient reported moderate relief of symptoms but not significant improvement. Advised will repeat valproic acid and consider DHE. Patient prefers to go home at this point discharged home encouraged to follow-up with her primary care. Medical Records I reviewed the patient's medical records. Lab Data I reviewed the patient's lab results. All radiology interpretation(s) finalized by discharge Discharge Plan Discharge Patient Disposition: Home Clinical Impression: Migraine Condition: Stable Prescriptions: New scopolamine base 1 mg over 3 days patch 3 day 1 patch transdermal Q72H PRN (Reason: nausea and vomiting) Qty: 4 0RF No Action diazepam [Valium] 5 mg tablet 5 mg PO BID PRN (Reason: anxiety) Qty: 60 1RF trazodone 100 mg tablet 200 mg PO .HS Qty: 60 2RF venlafaxine 100 mg tablet 100 mg PO TID Qty: 90 2RF Allergy Relief (cetirizine) 10 mg Tablet 10 mg PO DAILY PRN (Reason: Allergy Symptoms) Discharge Orders: Discharge ED (Routine); Ordered 02/13/25 Ordered By: Jose Johnson Referrals: Corrine Nice DO [Primary Care Provider, Family Practice] Discharge Diet: Usual diet Discharge Activity: Increase activity as tolerated Patient Instructions: Opioid Safety, Pain Management, Patient Portal & Randy Instructions Activity Restrictions/Additional Instructions: Thank you for choosing [facility] for your healthcare needs today. It is very important that you follow up as instructed or that you return to the Emergency Department should you have concerns or if your condition changes or worsens in any way. You were seen emergency room with a migraine. You are given initial treatments we had offered further medications you stated you prefer to go home you can return at any time to be treated further if needed. Print Language: Tuvaluan Coding Level of Care Code ED Graphic Design Manager for Nicolas Moreno
[2025-02-13] MEDS: diphenhydrAMINE 50 mg/mL SDV 1mL IVP (16:12)
[2025-02-13 16:20] VITALS: BP 124/78; PULSE 78; O2SAT 98
[2025-02-13 18:16] VITALS: BP 133/83; PULSE 104; O2SAT 100
== END 2025-02-13 18:23 | disposition home or self-care (01) ==
PROVIDERS: Emergency Provider Family Medicine; PCP Family Medicine
DX: G43.909 Migraine, unspecified, not intractable, without status migrainosus (principal); E11.9 Type 2 diabetes mellitus without complications; I10 Essential (primary) hypertension
CPT/HCPCS: 96374; 96375; 99284; J0780; J1200; J1885; J3490; J7030

== ENCOUNTER 2025-03-10 16:30 | Outpatient (CLI) | payer OTHER, SELFPAY ==
[2025-03-10] MEDS: iohexol 350 mg/mL 500 mL Btl (per mL) IV (16:56)
--- NOTE | 2025-03-10 17:00 | CT_ITS ---
WS: [id number] CT HEAD WITH AND WITHOUT CONTRAST HISTORY: chronic migraine TECHNIQUE: Noncontrast axial images obtained from the vertex to the skull base. Additional imaging performed in axial images status post IV contrast. Bone and soft tissue windows are reviewed. All CT scans at [facility] use at least one of these dose optimization techniques: automated exposure control; mA and/or kV adjustment per patient size (includes targeted exams where dose is matched to clinical indication); or iterative reconstruction. CONTRAST: Omnipaque 350; 100 mL IV. DLP: 1982.40 mGy.cm COMPARISON: 12/27/2020 No acute intracranial hemorrhage, edema or midline shift. No prior infarct. No volume loss. No midline shift. No enhancing mass or vascular malformations identified. Dural venous sinuses are normally enhancing. Visualized [place] is unremarkable. Paranasal sinuses as visualized: Clear. Mastoid air cells: Clear. Calvarium and scalp: Intact. CT/CT head wo/w con [id number] IMPRESSION: 1. Normal CT appearance of the brain. 2. No enhancing masses or vascular malformations. 3. Normal enhancement. 4. No cerebral venous thrombosis identified. Consider evaluation by MRI with and without contrast. MR angiogram of the circl e of [place] may provide additional information concerning possible vasculitis.
== END 2025-03-10 16:31 | disposition home or self-care (01) ==
LOC: RAD 16:32
PROVIDERS: PCP Family Medicine; Visit Provider Family Medicine
DX: G43.E09 Chronic migraine with aura, not intractable, without status migrainosus (principal)
CPT/HCPCS: 70470

== ENCOUNTER 2025-04-22 12:16 | Outpatient (CLI) | payer OTHER, SELFPAY | END 2025-04-22 12:17 | disposition home or self-care (01) | LOC: SLEEP 12:18 | PROVIDERS: PCP Family Medicine; Referring Provider Family Medicine; Visit Provider Internal Medicine Pulmonary Disease | DX: G47.33 Obstructive sleep apnea (adult) (pediatric) (principal) | CPT/HCPCS: G0399 ==

== ENCOUNTER → 2025-05-27 17:54 | Outpatient (BNVA) | payer OTHER, SELFPAY | PROVIDERS: PCP Family Medicine | DX: J02.9 Acute pharyngitis, unspecified (principal) | CPT/HCPCS: 87880 ==

== ENCOUNTER → 2025-06-05 10:32 | Outpatient (BNVA) | payer OTHER, SELFPAY | PROVIDERS: PCP Family Medicine; Visit Provider Family Medicine | DX: R30.0 Dysuria (principal); N89.8 Other specified noninflammatory disorders of vagina | CPT/HCPCS: 81000; 81513; 87086; 87481; 87491; 87591; 87661 ==